=== PATIENT | male | born 1935 | race Caucasian/White ===

== ENCOUNTER 2017-11-02 12:39 | Inpatient (IN) ==
[2017-11-02] MEDS ORDERED: ONDANSETRON 4 MG/2 ML VIAL IV PRN (15:01)
[2017-11-02] MEDS ORDERED: ACETAMINOPHEN 325 MG TABLET PO PRN (15:01)
[2017-11-02] MEDS ORDERED: DEXTROSE 31 GM ORAL.SUSP PO PRN (15:01)
[2017-11-02] MEDS ORDERED: MAGNESIUM SULFATE 2 GM/50 ML BAG IV PRN (15:01)
[2017-11-02] MEDS ORDERED: DEXTROSE 50% 50 ML VIAL IV PRN (15:01)
[2017-11-02] MEDS ORDERED: ACETAMINOPHEN 1,000 MG/100 ML BOTTLE IV PRN (15:01)
--- NOTE | 2017-11-02 16:16 | History and Physical Report ---
DATE OF ADMISSION: 11/02/2017 PRIMARY CARE PHYSICIAN: Aneesh Sanchez M.D. REASON FOR ADMISSION: Weakness, generalized swelling, and shortness of breath. HISTORY OF CHIEF COMPLAINT: The patient is an 82-year-old gentleman who lives with his , Lorie, at [facility] and has been in his baseline state of health with history of diabetes, hypertension. Over the last few of weeks, he has noticed increasing weight gain to the amount of 60 pounds. Patient has had difficulty voiding and emptying bladder. He, however, denies taking new medications. He had upper respiratory symptoms roughly 2 weeks ago and since then he has had progressive difficulty emptying. he has been trying to alleviate his symptoms with [id number] medications. He denies abdominal pain, bloody urine, bloody stool. He does have associated shortness of breath which has progressed from dyspnea on maximal exertion to dyspnea at rest. He is unable to perform activities of daily living. With increasing concerns, the patient was evaluated at [facility] ER today. Initial workup was significant for bibasilar infiltrates with parapneumonic effusion on chest imaging, along with acute renal failure with a creatinine of 4.3 and potassium 5.4 and a pH of 7.33 on basic panel. Due to lack of availability of beds at [facility], Hospitalist Service at [facility] was consulted. I received the phone sign-out from Dr. Senior, [facility] ED physician, and subsequently accepted the patient based on the above data. The patient on arrival appears stable. He was able to answer most of the questions. He is short of breath, was able to talk in full sentences. He endorses to history as above. He is , but his was not available for further evaluation of history. The patient denies fever, headache, photophobia, lightheadedness, dizziness. REVIEW OF SYSTEMS: A ten-point review of system was performed and is negative except for the ones discussed above. PAST MEDICAL HISTORY: 1. Diabetes mellitus type 2. 2. Hypertension. 3. Coronary artery disease. CURRENT MEDICATIONS: 1. Coreg 3.125 mg twice daily. 2. Plavix 75 mg daily. 3. Glipizide 10 mg twice daily. 4. Metformin 500 mg twice daily. 5. Ranitidine 150 mg daily. 6. Simvastatin 40 mg daily. 7. Spironolactone 25 mg daily. 8. Potassium 10 mEq daily. 9. Moexipril 15 mg daily. CURRENT IMMUNIZATIONS: None available. SOCIAL HISTORY: Lives with his , Lorie, in [facility]. Quit smoking 4 years ago. No history of significant alcoholism or substance abuse. FAMILY HISTORY: Not relevant given advanced age. ALLERGIES: None remarkable. PHYSICAL EXAMINATION: GENERAL: The patient is alert, oriented, in moderate discomfort, short of breath, fatigue, lethargic. VITAL SIGNS: Blood pressure 124/76, respiratory rate 22, temperature 98.6, sats 100% on 2 liters of oxygen. HEENT: Pupils symmetric. Oral cavity is dry. No ear or nose discharge. Head is normocephalic and atraumatic. NECK: No lymphadenopathy. CHEST: S1, S2, tachycardia. ESM grade 1. Diminished breath sounds at bases, poor respiratory excursion. No crackles or adventitious sounds. ABDOMEN: Soft, nontender. EXTREMITIES: Doughy, dependent edema around the sacrum and gluteal area. Significant lymphedema around the lower extremity involving the thighs all the way to the ankle. Cold, clammy skin. No joint swelling or erythema. SKIN: No rashes or skin lesions. PSYCHIATRIC: Fatigued, lethargic, but cooperative and alert. NEURO: Nonfocal. LABS AND IMAGING: Reviewed from [facility] ER. EKG: Sinus tachycardia, rate around mid-90s. Bilateral infiltrate with a parapneumonic effusion on chest imaging. Venous pH 7.33/38/39. Blood sugar 339. BUN 101, creatinine 4.3, sodium 133, potassium 5.4, chloride 94, CO2 19, anion gap 20. LFTs unremarkable. White count 5.7, hemoglobin 11.8, platelets 202. BNP 1336. ASSESSMENT AND PLAN: An 82-year-old admitted with acute renal failure. 1. Acute renal failure with generalized lymphedema. Rule out postobstructive cause. Sagastume catheter insertion along with UA, renal ultrasound and further workup. Nephrology consultation. 2. Acute mental status change, likely secondary to uremia with BUN of 101. Continue renal function monitoring while we evaluate cause and likely modalities for reversal of acute renal failure. Avoid sedative hypnotics. 3. History of diabetes mellitus type 2. Continue sliding scale insulin. Avoid sulfonylurea due to propensity for prolonged hypoglycemia from active metabolite delayed clearance. 3. Mild hyperkalemia. Monitor and manage as per Nephrology. Avoid hyperkalemia protocol at this time. Repeat BMP. 4. Bibasilar infiltrates, possibly atelectasis. However, given chest infiltrates on imaging the patient will be empirically started on coverage for community-acquired pathogens, including Levaquin/Rocephin, and we will rapidly deescalate if procalcitonin negative and low probability of infectious etiology. 5. Prophylaxis will be on heparin. 5. Other prior medical issues. At this time, medication will be held until patient is clinically stable. PLAN FOR TODAY: 1. Admit as inpatient. 2. Antibiotic coverage. 3. Renal ultrasound. 4. Nephrology consult. 5. Sagastume catheter for bladder decompression. AA:michael Job ID: [id number] Doc ID: [id number] Darren Ames MD [facility]
[2017-11-02] MEDS ORDERED: FUROSEMIDE 40 MG/4 ML VIAL IV ONE (16:32)
--- NOTE | 2017-11-02 16:41 | Nephrology Consult Note ---
History of Present Illness - Reason for Consult Patient information: Note initiated : 11/02/17 at 4:36 pm Service Date, if different from initiated Date: [] Patient: Brandon Austin 82 y/o M admitted on 11/02/17 for Pneumonia. Chief Complaint: [] Consult date: 11/02/17 acute renal failure Requesting physician: Darren Victor - Chief Complaint SOB - History of Present Illness Mr Austin is a 82 y/o white male with PMH of HTN, DM type 2, CAD, dyslipidemia who is transferred from [facility] for hospitalisation for PNA, ZANDER Patient states that he has not been feeling well for the last 2-3 weeks. he states he started having SOB on exertion and fatigue 2-3 weeks ago, he thought the cold weather was causing issues. He stopped going for his walks. He has steadily been going downhill since then. He states his SOB kept getting worse with PND/orthopnea/SOB at rest and worsening LE edema. c/o intermittent chest pain no fever, cough no chills c/o poor appetite but no nausea, vomiting no diarrhea was using ibuprofen once a day for the last one week drinks very little water only 16 ounces or less and some coffee every day also reports hypotensive episodes over the last few days Patient reports to making very little urine for the last 2 weeks Patient presented to the ER as symptoms continued to get worse He was found to have b/l LL infiltrates, PNA and ZANDER and hence needed hospitalisation for further eval, given no beds patient was transferred here Review of Systems All systems PM: reviewed and no additional remarkable complaints except as stated (as in HPI) Past History Past medical history: HTN DM type 2 dyslipidemia CAD Past family history: NOT PERTINENT Past social history: Lives with his in [place] Sanchez is his PCP retired Quit smoking 4 yrs ago, no h/o ETOH or drug abuse Medications and Allergies Allergies Allergy/AdvReac Type Severity Reaction Status Date / Time No Known Allergies Allergy Verified 11/02/17 15:22 No Known Drug Intolerances AdvReac Verified 11/02/17 15:22 Exam - General Appearance General appearance: appears started age, frail EENT: mucous membranes moist Neck: JVD Respiratory: rales (bibasal) Cardiology: no rub, edema (3+), normal S1, normal S2 Gastrointestinal: no tenderness, no guarding Integumentary: warm and dry Neurologic: no asterixis, alert and oriented x3 Musculoskeletal: no erythema, no cyanosis Psychiatric: mood/affect appropriate Assessment and Plan (1) Acute renal failure BUN 101, s.creatinine 4.3 when checked at [facility] K was 5.4, from spironolactone and use of ACEI and renal failure he has mild anion gap acidosis from renal failure, also uses metformin oliguric, bladder scan has only 90 cc of urine ZANDER etiology unclear He drinks very little fluids, is on ACEI, spironolactone and was using NSAIDS, he has been having intermittent hypotension as well no h/o CHF but has significant fluid overload with symptoms of orthopnea and PND but pro bnp is only 1500, he does have low voltage EKG Will obtain urinary studies patient also will get urgent renal US to r/o post obstructive etiology will give him 40mg lasix given his fluid excess, this will help with kaliuresis , if K trends up will give him a dose of kayexalate monitor BP and keep MAP of more than 65 no emergent need for POCKETED SPRING ASSEMBLER, will follow closely for the same, explained to the patient, he isnot refusing POCKETED SPRING ASSEMBLER at this time please dose meds to gfr less than 10 for now avoid nephrotoxic medications Thank you for giving me an opportunity to participate in Mr Austin's medical care, appreciate it Status: Acute
[2017-11-02] MEDS ORDERED: LEVOFLOXACIN 750 MG/150 ML BAG IV ONE (17:00)
--- NOTE | 2017-11-02 18:03 | Ultrasound Report ---
CLINICAL INFORMATION: Renal failure, acute TECHNIQUE: Grayscale and color flow Doppler spectral imaging COMPARISON: None. FINDINGS: Right kidney measures 10.3 x 5.5 x 5.4 cm. There is a right parapelvic cyst or extrarenal pelvis. This measures approximately 3.4 cm maximally. There is no hydronephrosis. No renal calculi. Right renal cortex is slightly echogenic consistent with medical renal disease. Left kidney is suboptimally visualized. Kidney measures 10.6 x 5.5 x 5.1 cm. No hydronephrosis. No solid mass. There is a probable 10 mm mid to lower pole cyst. Left renal cortex is mildly echogenic consistent with medical renal disease. Urinary bladder is not visualized. There is a Sagastume catheter in place. There is a small amount of free pelvic fluid posterior to the urinary bladder. IMPRESSION: 1. No hydronephrosis. 2. Mildly echogenic renal cortex bilaterally consistent with medical renal disease. Interpreted and Authenticated by: Darius Andres 11/02/17
[2017-11-02] MEDS: INSULIN LISPRO 1 UNIT/0.01 ML UNIT SQ SCH ×2 (18:30→23:04)
[2017-11-02 19:19] LABS: Appearance,Urine HAZY; Bacteria,Urine 0 /hpf (0); Bilirubin,Urine NEG (NEG); Color,Urine YELLOW; Glucose,Urine (UA) 50 mg/dL (NEG); Leukocyte Esterase,Urine NEG /uL (NEG); Protein,Urine 30 mg/dL (NEG); Specific Gravity,Urine 1.017 (1.000-1.035); Sperm,Urine ABSENT /hpf (ABSENT); Urine Blood NEG mg/dL (<0.03); Urine Hyaline Cast 1 /lpf (0-2); Urine RBC 2 /hpf (0-1); Urine Squamous Epithelial Cell < 1 /hpf (0-4); Urine WBC 2 /hpf (0-4); Urobilinogen,Urine NEG (NEG)
[2017-11-02] MEDS ORDERED: SODIUM POLYSTYRENE SULFONATE 15 GM/60 ML SUSPENSION PO ONE (20:34)
[2017-11-02] MEDS ORDERED: SENNOSIDES/DOCUSATE SODIUM 1 TAB TABLET PO SCH (21:00)
[2017-11-02] MEDS: DOCUSATE SODIUM 100 MG CAPSULE PO SCH (23:04)
[2017-11-02] MEDS: HEPARIN 5,000 UNIT/ML VIAL SQ SCH (23:05)
[2017-11-02] MEDS ORDERED: NOREPINEPHRINE BITARTRATE 16 MG in 0.9 % SODIUM CHLORIDE 234 ML IV SCH (23:30)
[2017-11-02] MEDS ORDERED: NOREPINEPHRINE BITARTRATE 4 MG/4 ML AMPUL IV ONE (23:57)
[2017-11-03] MEDS: 0.9 % SODIUM CHLORIDE 250 ML IV SCH ×4 (00:25→18:07)
[2017-11-03 05:50] LABS: Mean Cell Volume 85.6 fL (80.0-100.0); Mean Corpuscular HGB Conc 32.5 g/dL (31.0-36.0); Mean Corpuscular Hemoglobin 27.8 pg (26.0-34.0); Platelet Count 360 K/mcL (140-440); RBC 4.85 M/mcL (4.50-5.90); Red Cell Distribution Width 14.7 % (11.5-14.5)
[2017-11-03 06:51] LABS: ALT/SGPT 36 U/l (0-40); Albumin 2.8 gm/dL (3.2-5.2); Albumin/Globulin Ratio 0.8 (1.0-2.3); Alkaline Phosphatase 148 U/L (39-117); Bilirubin,Direct 0.3 mg/dL (0.0-0.3); Blood Urea Nitrogen 111 mg/dl (8-23); Gamma Glutamyl Transpeptidase 43 U/L (8-61); Uric Acid 11.3 mg/dL (2.5-8.0)
[2017-11-03 07:00] LABS: Anisocytosis 1+ (NONE SEEN); Lymphocytes % 3 % (15-49); Monocytes % (Manual) 8 % (1-12); Platelet Estimate NORMAL (NORMAL); RBC Morphology ABNORM (NORMAL); Segmented Neutrophils % 89 % (38-78)
--- NOTE | 2017-11-03 08:58 | XRay Report ---
INDICATION: Congestive heart failure TECHNIQUE: AP chest x-ray,portable semiupright COMPARISON: None FINDINGS:Mild cardiomegaly. Bilateral parenchymal infiltrates with bibasilar predominance. Bilateral pleural effusions. Appearance is consistent with the supplied diagnosis of congestive heart failure. Bibasilar pneumonia is not excluded and clinical correlation is necessary. Small focal right upper lobe infiltrate. This may be due to pneumonia or more focal pulmonary edema. Left upper lobe is negative. IMPRESSION: 1. Bilateral infiltrates and pleural effusions 2. Findings are consistent with the supplied diagnosis of congestive heart failure. Follow-up radiographs recommended Interpreted and Authenticated by: Darius Andres 11/03/17
[2017-11-03] MEDS ORDERED: cefTRIAXone 2 GM in DEXTROSE 5% IN WATER 50 ML IV SCH (09:00)
[2017-11-03] MEDS ORDERED: FUROSEMIDE 100 MG/10 ML VIAL IV ONE (09:00)
[2017-11-03] MEDS ORDERED: 0.9 % SODIUM CHLORIDE 10 ML SYRINGE IV PRN ×2 (10:04→15:58)
--- NOTE | 2017-11-03 11:14 | Ultrasound Report ---
CLINICAL INFORMATION: Renal failure TECHNIQUE: Grayscale and color flow Doppler spectral imaging COMPARISON: None. FINDINGS: Limited evaluation. Patient was scanned in an upright sitting position. Renal arteries are suboptimally visualized. No significant velocity elevation with in the proximal, mid, or distal renal artery bilaterally. Renal artery to aortic ratios are not significantly elevated. No evidence for 50% or greater diameter stenosis. Right resistive indices measure 0.75-0.86. Left resistive indices measure 0.74-0.82. These values are abnormal. IMPRESSION: 1. Abnormal resistive index bilaterally 2. No evidence for renal artery stenosis Interpreted and Authenticated by: Darius Andres 11/03/17
[2017-11-03] MEDS: DOCUSATE SODIUM 100 MG CAPSULE PO SCH ×2 (11:30→21:39)
[2017-11-03] MEDS: HEPARIN 5,000 UNIT/ML VIAL SQ SCH ×2 (11:31→21:39)
[2017-11-03] MEDS: INSULIN LISPRO 1 UNIT/0.01 ML UNIT SQ SCH ×3 (12:42→21:40)
[2017-11-03] MEDS ORDERED: DEXTROSE 50% 50 ML VIAL IV PRN (15:58)
[2017-11-03] MEDS ORDERED: MAGNESIUM SULFATE 2 GM/50 ML BAG IV PRN (15:58)
[2017-11-03] MEDS ORDERED: ACETAMINOPHEN 1,000 MG/100 ML BOTTLE IV PRN (15:58)
[2017-11-03] MEDS ORDERED: DEXTROSE 31 GM ORAL.SUSP PO PRN (15:58)
[2017-11-03] MEDS ORDERED: ONDANSETRON 4 MG/2 ML VIAL IV PRN (15:58)
[2017-11-03] MEDS ORDERED: MANNITOL 12.5 GM/50 ML VIAL IV ONE (16:21)
[2017-11-03] MEDS ORDERED: VANCOMYCIN PER PHARMACY IV SCH (16:35)
--- NOTE | 2017-11-03 16:35 | Internal Med Progress Note ---
Medical - PN: Subj Patient information: Note initiated : 11/03/17 at 4:30 pm Service Date, if different from initiated Date: [] Patient: Brandon Austin 82 y/o M admitted on 11/02/17 for Pneumonia/Acute Renal Failure. Chief Complaint: [] Interval history: The patient is an 82-year-old gentleman who lives with his , Lorie, at [facility] and has been in his baseline state of health with history of diabetes, hypertension. Over the last few of weeks, he has noticed increasing weight gain to the amount of 60 pounds. Patient has had difficulty voiding and emptying bladder. He, however, denies taking new medications. He had upper respiratory symptoms roughly 2 weeks ago and since then he has had progressive difficulty emptying. he has been trying to alleviate his symptoms with [id number] medications. He denies abdominal pain, bloody urine, bloody stool. He does have associated shortness of breath which has progressed from dyspnea on maximal exertion to dyspnea at rest. He is unable to perform activities of daily living. With increasing concerns, the patient was evaluated at [facility] ER today. Initial workup was significant for bibasilar infiltrates with parapneumonic effusion on chest imaging, along with acute renal failure with a creatinine of 4.3 and potassium 5.4 and a pH of 7.33 on basic panel. Due to lack of availability of beds at [facility], Hospitalist Service at [facility] was consulted. I received the phone sign-out from Dr. Senior, [facility] ED physician, and subsequently accepted the patient based on the above data. The patient on arrival appears stable. He was able to answer most of the questions. He is short of breath, was able to talk in full sentences. He endorses to history as above. He is , but his was not available for further evaluation of history. 11/03 patient seen and examined, overnight events noted, patient was hypotensive overnight, and was started on levophed drip, no icu bed available, hence was on the tele status with the drip. he was moved to icu today, as soon as bed opened, He has had poor urine output, and did not respond to lasix, nephrology following , plan to get temporary cath placed and dialysis to be initiated Echo reviewed, normal lvef, moderate pulm HTN noted pt on levophed, picc to be placed for pressor support On iv antibiotics rocepin, levofloxacin,, d/c same, start on vanco and zosyn CXR shows ricardo infiltrates, and pleural effusion. Renal USG shows abnormal restive indices, but no significant renal artery stenosis Pertinent ROS: Denies headache, dizziness Denies chest pain, palpitations improving shortness of breath, Denies abdominal pain, nausea or vomiting. - Constitutional Vitals: Vital Signs Temp Pulse Resp BP Pulse Ox 98.6 F 74 24 H 116/70 90 11/03/17 11:33 11/03/17 16:13 11/03/17 11:33 11/03/17 16:10 11/03/17 16:13 Period Temp Pulse Resp BP Sys/Kelly Pulse Ox Last 24 Hr 97.2 F-98.6 F 65-76 16-24 68-155/49-144 90-100 Intake and Output 11/03/17 11/03/17 11/03/17 05:59 13:59 21:59 Intake Total 246 / 246 220 / 220 Output Total 175 / 175 60 / 60 Balance -165 / -165 186 / 186 219 / 219 Weight 181 lb 8 oz Patient Weight 11/04/17 05:59 Weight 181 lb 8 oz Intake & Output: Intake & Output 11/03/17 11/03/17 11/03/17 05:59 13:59 21:59 Intake Total 246 / 246 220 / 220 Output Total 175 / 175 60 / 60 Balance -165 / -165 186 / 186 219 / 219 Weight 181 lb 8 oz Intake: IV 246 / 246 Sodium Chloride 0.9% 250 ml @ 246 / 246 20 mls/hr IV .[id number] KANDY Rx#: [id number] Levophed 16 mg In Sodium 10 / 10 Chloride 0.9% 234 ml @ 10 MCG/ MIN 9.37 mls/hr IV Q24H KANDY Rx# :[id number] Oral 220 / 220 Output: Urine Catheter Amount 0 / 0 60 / 60 Urine/Stool Mix Stool 175 / 175 Other: Meal Lunch Percent of Meal Consumed 100% Feeding Ability Independent Stool Size Small Large Stool Color Brown Brown Stool Consistency Liquid Liquid # Bowel Movements 1 1 # of times incontinent of 1 1 Bowels Exam: Constitutional; Afebrile, cooperative, alert, not in distress. Eyes- No icterus, , No periorbital swelling Ears- Ext ear normal, hearing moderate hard to conversation. Neck- Midline trachea, supple Respiratory system: Air Entry equal on both sides, decreased air entry at both bases, ricardo crackles noted, no wheezing. speaking full sentences, no accessory muscle use. CVS- Rate rhythm regular, S1,S2 heard, no gallop, no rub. Abdomen- Soft nontender abdomen, no organomegaly, no tenderness, no guarding or rigidity, MERCHANDISE COORDINATOR- AOOx3, moving all extremities, no gross focal deficit noted. Medical - PN: Obj Da - Labs CBC & Chem 7: 11/03/17 04:28 11/03/17 04:28 Labs: Abnormal Lab Results 11/03/17 11/03/17 11/03/17 13:07 04:28 04:28 RDW 14.7 H Seg Neutrophils % 89 H Lymphocytes % 3 L RBC Morphology Abnorm A Anisocytosis 1+ A PT 15.8 H INR 1.3 H POC Potassium Carbon Dioxide 21 L Anion Gap 18.0 H POC BUN BUN 111 H* Creatinine 4.9 H POC Creatinine Glucose 238 H POC Glucose Uric Acid 11.3 H Calcium 8.4 L POC WB Ioniz Calcium Phosphorus 7.8 H* Magnesium 2.7 H Alkaline Phosphatase 148 H Albumin 2.8 L Albumin/Globulin Ratio 0.8 L Urine Protein Urine Glucose (UA) Urine RBC 11/02/17 11/02/17 17:15 15:30 RDW Seg Neutrophils % Lymphocytes % RBC Morphology Anisocytosis PT INR POC Potassium 5.5 H Carbon Dioxide Anion Gap POC BUN 100 H BUN Creatinine POC Creatinine 4.7 H Glucose POC Glucose 330 H Uric Acid Calcium POC WB Ioniz Calcium 1.09 L Phosphorus Magnesium Alkaline Phosphatase Albumin Albumin/Globulin Ratio Urine Protein 30 A Urine Glucose (UA) 50 A Urine RBC 2 H Meds: Medications Acetaminophen (Tylenol) 650 mg PO Q4-6HP PRN PRN Reason: PAIN/FEVER > 101 Ceftriaxone Sodium (Rocephin) 2 gm IV DAILY KANDY Dextrose (Dextrose 50%) 0 ml IV UD PRN PRN Reason: Hypoglycemia Diagnostic Test (Pha) (Accu-Chek) 1 each FS ACHS KANDY Docusate Sodium (Colace) 100 mg PO BID KANDY Furosemide (Lasix) 40 mg IV Q12 KANDY Glucose (Insta-Glucose) 15 gm PO PRN PRN PRN Reason: Hypoglycemia Heparin Sodium (Porcine) (Heparin) 5,000 unit SQ Q12 KANDY Heparin Sodium (Porcine) (Heparin Flush) 2 ml IV Q12 KANDY Levofloxacin (Levaquin) 500 mg in 100 mls @ 100 mls/hr IV Q48H KANDY Magnesium Sulfate (Magnesium Sulfate) 2 gm in 50 mls @ 50 mls/hr IV UD PRN PRN Reason: MG = or < 1.7 Norepinephrine Bitartrate 16 (mg/ Sodium Chloride) 250 mls @ 9.37 mls/hr IV Q24H KANDY; 10 MCG/MIN PRN Reason: Protocol Sodium Chloride (Sodium Chloride 0.9%) 250 mls @ 20 mls/hr IV .[id number] KANDY Acetaminophen (Ofirmev) 1,000 mg in 100 mls @ 200 mls/hr IV Q6HP PRN PRN Reason: PAIN/FEVER > 101 Sodium Chloride (Sodium Chloride 0.9%) 250 mls @ 20 mls/hr IV .[id number] KANDY Insulin Human Lispro (Humalog) 0 unit SQ ACHS KANDY PRN Reason: Protocol Ondansetron HCl (Zofran) 4 mg IV Q4-6HP PRN PRN Reason: Nausea And Vomiting Senna/Docusate Sodium (Senna Plus Tablet) 1 tab PO HS KANDY Sevelamer Carbonate (Renvela) 800 mg PO TIDCC KANDY Sodium Chloride (Saline Flush) 10 ml IV UD PRN PRN Reason: FLUSH Sodium Chloride (Saline Flush) 10 ml IV Q12 [facility] Medical - PN: A/P - Time Spent With Patient Total time spent is greater than 50% in coordination of care (as documented) at patient's floor/unit and/or counseling patient: - Narrative A/P Narrative: A/P Acute Kidney Injury Pulmonary Hypertension Pneumonia, Health care associated Altered Mental status Diabetes Mellitus type 2 Coronary Artery Disease Hypotensive shock hyperphosphatemia secondary to renal failure Plan Monitor in ICU at risk for HD disequliribium, neprology following manitol ordered levophed to map > 65 Lactate ordered ssi insulin for glucose control vanco and zosyn for HCAP pna monitor urine output DVT hep sq Diet Medical - PN: Qual - VTE Deep Vein Thrombosis/Pulmonary Embolism Present on Admission: No
[2017-11-03] MEDS ORDERED: VANCOMYCIN 1,250 MG in 0.9 % SODIUM CHLORIDE 500 ML IV ONE (17:00)
--- NOTE | 2017-11-03 17:28 | XRay Report ---
INDICATION: Right-sided PICC line placement TECHNIQUE: AP chest x-ray,portable semiupright COMPARISON: Chest x-rays dated 11/03/2017 FINDINGS:Right-sided PICC line. The PICC line is curled back in the axilla and is directed inferiorly. This should be repositioned. Large caliber right central venous catheter. Tip is in the right atrium. No pneumothorax. Bilateral parenchymal infiltrates and pleural effusions. Appearance remains consistent with congestive heart failure IMPRESSION: 1. Right-sided PICC line and central venous catheter in above described position 2. Bilateral parenchymal infiltrates and pleural effusions Interpreted and Authenticated by: Darius Andres 11/03/17
--- NOTE | 2017-11-03 17:53 | XRay Report ---
INDICATION: PICC line placement TECHNIQUE: AP chest x-ray,portable semiupright COMPARISON: Previous examination dated 11/03/2017 FINDINGS:Left-sided PICC line with its tip in the superior vena cava in good position. No change in large caliber right central venous catheter. Catheter tip is in the right atrium. Findings consistent with bilateral pleural effusions. There is bibasilar atelectasis or infiltrate. IMPRESSION: Left-sided PICC line with its tip in the superior vena cava Interpreted and Authenticated by: Darius Andres 11/03/17
[2017-11-03] MEDS: NOREPINEPHRINE BITARTRATE 16 MG in 0.9 % SODIUM CHLORIDE 234 ML IV SCH (18:06)
[2017-11-03] MEDS: SEVELAMER 800 MG TABLET PO SCH (18:14)
[2017-11-03 19:06] LABS: Blood Urea Nitrogen 116 mg/dl (8-23)
--- NOTE | 2017-11-03 19:50 | Nephrology Progress Note ---
Subjective Patient information: Note initiated : 11/03/17 at 7:47 pm Service Date, if different from initiated Date: [] Patient: Brandon Austin 82 y/o M admitted on 11/02/17 for Pneumonia/Acute Renal Failure. Chief Complaint: [] Principal diagnosis: Acute renal failure, fluid overload Interval history: Patient continues to have SOB, LE edema no GI symptoms he has made very little urine despite pressors support, and lasix 40-80mg His renal function continues to get worse echo shows moderate pul HTN with preserved LVEF discussed ongoing issues multiple times with family discussed option of initiating dialysis given no improvement in urinary output and fluid overload, discussed option of non doing dialysis and consequence of the same discussed risk of initiating [facility] at his age offered transfer to higher center which the family refused Pertinent ROS: as above Objective - Vital Signs Vital signs: Vital Signs Temp Pulse Pulse Resp BP BP Pulse Ox 11/03/17 16:13 74 90 11/03/17 16:10 72 116/70 93 11/03/17 13:31 76 118/83 96 11/03/17 13:01 72 113/75 95 11/03/17 12:31 73 119/69 95 11/03/17 12:01 72 104/63 96 11/03/17 12:00 74 11/03/17 11:40 102/74 11/03/17 11:38 71 155/144 95 11/03/17 11:33 98.6 F 24 H 102/74 96 11/03/17 10:31 71 110/78 96 11/03/17 10:01 71 104/75 91 11/03/17 09:31 69 118/72 98 11/03/17 09:01 70 121/80 99 11/03/17 08:31 67 107/76 97 11/03/17 08:01 67 107/77 96 11/03/17 07:31 68 115/68 97 11/03/17 07:01 66 109/73 99 11/03/17 06:31 69 97/72 100 11/03/17 06:25 97.7 F 16 111/63 99 11/03/17 06:01 68 111/63 97 11/03/17 06:00 68 11/03/17 05:31 68 95/65 97 11/03/17 05:01 66 107/62 98 11/03/17 04:31 67 91/64 97 03/15/18 04:01 98.2 F 66 20 102/69 97 11/03/17 03:31 67 95/66 98 11/03/17 03:01 67 97/66 97 11/03/17 03:00 68 95 11/03/17 02:41 66 88/60 98 11/03/17 02:31 66 83/65 98 11/03/17 02:23 68 82/59 97 11/03/17 02:11 67 85/57 97 11/03/17 02:03 75 68/54 98 11/03/17 02:01 67 75/61 99 11/03/17 01:51 67 84/56 98 11/03/17 01:42 72 104/72 97 11/03/17 01:31 70 89/68 98 11/03/17 01:24 66 81/57 94 11/03/17 01:21 67 68/49 95 11/03/17 01:13 70 87/55 95 11/03/17 00:41 71 98/54 94 11/03/17 00:34 72 104/70 93 11/03/17 00:01 71 97/75 93 11/02/17 23:32 97.4 F 66 18 95 11/02/17 23:03 65 82/51 94 11/02/17 23:01 65 78/55 93 11/02/17 22:01 69 112/69 95 11/02/17 21:01 68 107/63 96 11/02/17 20:10 66 93 11/02/17 20:01 97.2 F 67 20 91/61 95 Intake and Output 11/03/17 11/03/17 11/03/17 05:59 13:59 21:59 Intake Total 246 / 246 220 / 220 Output Total 175 / 175 60 / 60 Balance -165 / -165 186 / 186 219 / 219 Intake: IV 246 / 246 Sodium Chloride 0.9% 250 ml @ 246 / 246 20 mls/hr IV .[id number] [facility] Rx#: [id number] Levophed 16 mg In Sodium 10 / 10 Chloride 0.9% 234 ml @ 10 MCG/ MIN 9.37 mls/hr IV Q24H [facility] Rx# :[id number] Oral 220 / 220 Output: Urine Catheter Amount 0 / 0 60 / 60 Urine/Stool Mix Stool 175 / 175 Other: Meal Lunch Percent of Meal Consumed 100% Feeding Ability Independent Stool Size Small Large Stool Color Brown Brown Stool Consistency Liquid Liquid # Bowel Movements 1 1 # of times incontinent of 1 1 Bowels Weight 181 lb 8 oz Patient Weight 11/04/17 05:59 Weight 181 lb 8 oz Intake & Output: Intake & Output 11/03/17 11/03/17 11/03/17 05:59 13:59 21:59 Intake Total 246 / 246 220 / 220 Output Total 175 / 175 60 / 60 Balance -165 / -165 186 / 186 219 / 219 Weight 181 lb 8 oz Intake: IV 246 / 246 Sodium Chloride 0.9% 250 ml @ 246 / 246 20 mls/hr IV .[id number] [facility] Rx#: [id number] Levophed 16 mg In Sodium 10 / 10 Chloride 0.9% 234 ml @ 10 MCG/ MIN 9.37 mls/hr IV Q24H [facility] Rx# :[id number] Oral 220 / 220 Output: Urine Catheter Amount 0 / 0 60 / 60 Urine/Stool Mix Stool 175 / 175 Other: Meal Lunch Percent of Meal Consumed 100% Feeding Ability Independent Stool Size Small Large Stool Color Brown Brown Stool Consistency Liquid Liquid # Bowel Movements 1 1 # of times incontinent of 1 1 Bowels - General Appearance General appearance: appears started age EENT: mucous membranes moist Neck: JVD Respiratory: rales (decreased air entry at the bases ) Cardiology: edema, normal S1, normal S2 Gastrointestinal: no tenderness, no guarding Integumentary: warm and dry Neurologic: asterixis, alert and oriented x3 Musculoskeletal: no erythema, no cyanosis Psychiatric: mood/affect appropriate - Lab 11/03/17 04:28 11/03/17 18:05 Most recent lab results Calcium 8.6 mg/dl (8.6-10.4) 11/03/17 18:05 Phosphorus 7.8 mg/dL (2.7-4.5) H* 11/03/17 04:28 Magnesium 2.7 mg/dL (1.6-2.5) H 11/03/17 04:28 Assessment and Plan (1) Acute renal failure Patient has ZANDER likely ATN/? cardiorenal syndrome,low urine sodium in the setting of significant volume excess mild proteinuria will obtain further work up renal US shows medical renal disease, renal doppler is negative baseline s.creat 1.3 (07/08) hypotension on levophed stable given mild uremic symptoms, fluid excess and oligoanuria despite using diuretic will initiate dialysis today will do dialysis only for 2 hrs and UF treatment for 3 hrs, using revaclear 300 dialyser, 2K/2.5Ca dialysate, QB 200ml/min, QD 300/400ML/MIN and attempt for 0.5 -1L UF removal as tolerated continue pressors to keep map of more than 70 will continue IV lasix will start renvela for phos binding hold ACEI, spironolactone, metformin monitor I/O, renal function and vitals dose meds to egfr less than 10 I will be off call from tomorrow and Dr Oquendo will follow the patient. I have let the family know about this and I have signed off to Dr Oqunedo Thank you for giving me an opportunity to participate in Mr Austin's medical care, appreciate it Status: Acute
[2017-11-03] MEDS ORDERED: 0.9 % SODIUM CHLORIDE 10 ML SYRINGE IV SCH (21:00)
[2017-11-03] MEDS: 0.9 % SODIUM CHLORIDE 10 ML SYRINGE IV SCH (21:41)
[2017-11-03] MEDS: FUROSEMIDE 40 MG/4 ML VIAL IV SCH (21:41)
[2017-11-03] MEDS: SENNOSIDES/DOCUSATE SODIUM 1 TAB TABLET PO SCH (21:41)
[2017-11-03] MEDS: PIPERACILLIN SODIUM/TAZOBACTAM 2.25 GM in DEXTROSE 5% IN WATER 50 ML IV SCH (23:09)
[2017-11-04] MEDS: PIPERACILLIN SODIUM/TAZOBACTAM 2.25 GM in DEXTROSE 5% IN WATER 50 ML IV SCH ×4 (00:46→22:03)
[2017-11-04] MEDS: 0.9 % SODIUM CHLORIDE 250 ML IV SCH ×4 (04:05→18:31)
[2017-11-04 05:42] LABS: Mean Cell Volume 85.3 fL (80.0-100.0); Mean Corpuscular HGB Conc 32.4 g/dL (31.0-36.0); Mean Corpuscular Hemoglobin 27.6 pg (26.0-34.0); Platelet Count 321 K/mcL (140-440); RBC 4.81 M/mcL (4.50-5.90)
[2017-11-04 06:13] LABS: ALT/SGPT 29 U/l (0-40); Albumin 2.6 gm/dL (3.2-5.2); Albumin/Globulin Ratio 0.7 (1.0-2.3); Alkaline Phosphatase 147 U/L (39-117); Bilirubin,Direct 0.2 mg/dL (0.0-0.3); Blood Urea Nitrogen 94 mg/dl (8-23); Gamma Glutamyl Transpeptidase 39 U/L (8-61); Uric Acid 9.4 mg/dL (2.5-8.0)
--- NOTE | 2017-11-04 06:29 | XRay Report ---
INDICATION: Dyspnea TECHNIQUE: AP chest x-ray,portable semiupright COMPARISON: 11/03/2017 FINDINGS:No change in positions of large caliber right central venous catheter and left-sided PICC line. Mild cardiomegaly. Findings consistent with bilateral pleural effusions and bilateral parenchymal infiltrates. Appearance is essentially stable. Continued radiographic follow-up recommended IMPRESSION: 1. Bilateral parenchymal infiltrates and pleural fluid collections 2. No significant interval change since 11/03/2017 Interpreted and Authenticated by: Darius Andres 11/04/17
[2017-11-04 06:53] LABS: Anisocytosis 1+ (NONE SEEN); Eosinophils % (Manual) 1 % (0-7); Lymphocytes % 13 % (15-49); Monocytes % (Manual) 8 % (1-12); Platelet Estimate NORMAL (NORMAL); RBC Morphology ABNORM (NORMAL); Segmented Neutrophils % 78 % (38-78)
--- NOTE | 2017-11-04 07:56 | Nephrology Progress Note ---
Subjective Patient information: Note initiated : 11/04/17 at 7:54 am Patient: Brandon Austin 82 y/o M admitted on 11/02/17 for Pneumonia/Acute Renal Failure. Chief Complaint: Shortness of breath with swelling. Principal diagnosis: Acute renal failure, fluid overload Interval history: Brandon Austin is an [id number] male with coronary artery disease, diabetes mellitus type 2, hypertension, hyperlipidemia admitted on 11/02/17 for recent onset anorexia, dyspnea and weakness for one month. Pertinent ROS: Feels better. Decreased leg edema. Less dyspnea. Objective - Vital Signs Vital signs: Vital Signs Temp Pulse Pulse Pulse Resp BP BP 11/04/17 07:01 76 122/98 11/04/17 06:31 70 115/81 11/04/17 06:01 69 18 97/74 11/04/17 05:01 94 H 18 130/85 11/04/17 04:01 97.6 F 71 18 116/74 11/04/17 03:01 69 117/86 11/04/17 02:13 68 11/04/17 02:01 98.0 F 72 18 117/66 11/04/17 02:00 80 80 18 11/04/17 01:01 71 16 97/68 11/04/17 00:01 72 92/74 11/03/17 23:01 71 18 109/80 11/03/17 22:32 72 112/76 11/03/17 22:16 97.1 F 77 102/66 11/03/17 22:01 75 18 118/86 11/03/17 21:59 82 124/87 11/03/17 21:46 97.1 F 97 H 100/83 11/03/17 21:26 97.3 F 89 109/77 11/03/17 21:03 97.1 F 75 22 131/73 11/03/17 21:01 74 122/74 11/03/17 20:54 97.1 F 77 121/73 11/03/17 20:18 97.2 F 74 117/70 11/03/17 20:03 97.4 F 76 116/74 11/03/17 20:01 97.3 F 75 18 147/131 11/03/17 19:02 97.4 F 78 20 137/78 11/03/17 18:03 74 18 117/83 11/03/17 18:00 76 81 20 11/03/17 16:13 74 11/03/17 16:10 72 116/70 11/03/17 13:31 76 118/83 11/03/17 13:01 72 113/75 11/03/17 12:31 73 119/69 11/03/17 12:01 72 104/63 11/03/17 12:00 74 11/03/17 11:40 102/74 11/03/17 11:38 71 155/144 11/03/17 11:33 98.6 F 24 H 102/74 11/03/17 10:31 71 110/78 11/03/17 10:01 71 104/75 11/03/17 09:31 69 118/72 11/03/17 09:01 70 121/80 11/03/17 08:31 67 107/76 11/03/17 08:01 67 107/77 Pulse Ox 11/04/17 07:01 92 11/04/17 06:31 96 11/04/17 06:01 95 11/04/17 05:01 95 11/04/17 04:01 95 11/04/17 03:01 95 11/04/17 02:13 96 11/04/17 02:01 96 11/04/17 02:00 98 11/04/17 01:01 96 11/04/17 00:01 94 11/03/17 23:01 96 11/03/17 22:32 11/03/17 22:16 11/03/17 22:01 94 11/03/17 21:59 11/03/17 21:46 11/03/17 21:26 11/03/17 21:03 95 11/03/17 21:01 95 11/03/17 20:54 11/03/17 20:18 11/03/17 20:03 11/03/17 20:01 95 11/03/17 19:02 95 11/03/17 18:03 94 11/03/17 18:00 96 11/03/17 16:13 90 11/03/17 16:10 93 11/03/17 13:31 96 11/03/17 13:01 95 11/03/17 12:31 95 11/03/17 12:01 96 11/03/17 12:00 11/03/17 11:40 11/03/17 11:38 95 11/03/17 11:33 96 11/03/17 10:31 96 11/03/17 10:01 91 11/03/17 09:31 98 11/03/17 09:01 99 11/03/17 08:31 97 11/03/17 08:01 96 Intake and Output 11/03/17 11/04/17 11/04/17 21:59 05:59 13:59 Intake Total 224 / 224 290 / 290 1340 / 1340 Output Total 1320 / 1320 45 / 45 Balance 223 / 223 -1030 / -1030 1295 / 1295 Intake: IV 4 / 4 50 / 50 1340 / 1340 Sodium Chloride 0.9% 250 ml @ 250 / 250 20 mls/hr IV .[id number] [facility] Rx#: [id number] Levophed 16 mg In Sodium 4 / 4 Chloride 0.9% 234 ml @ 10 MCG/ MIN 9.37 mls/hr IV Q24H [facility] Rx# :[id number] Zosyn 2.25 gm In Dextrose 5% in 50 / 50 50 / 50 Water 50 ml @ 100 mls/hr IV Q8H [facility] Rx#:[id number] Oral 220 / 220 240 / 240 Output: Urine Catheter Amount 320 / 320 45 / 45 Urine/Stool Mix Hemodialysis UF 1000 / 1000 Other: Meal Lunch Percent of Meal Consumed 100% Feeding Ability Independent Stool Size Large Stool Color Brown Stool Consistency Liquid Weight 180 lb 6.4 oz Intake & Output: Intake & Output 11/03/17 11/04/17 11/04/17 21:59 05:59 13:59 Intake Total 224 / 224 290 / 290 1340 / 1340 Output Total 1320 / 1320 45 / 45 Balance 223 / 223 -1030 / -1030 1295 / 1295 Weight 180 lb 6.4 oz Intake: IV 4 / 4 50 / 50 1340 / 1340 Sodium Chloride 0.9% 250 ml @ 250 / 250 20 mls/hr IV .[id number] [facility] Rx#: [id number] Levophed 16 mg In Sodium 4 / 4 Chloride 0.9% 234 ml @ 10 MCG/ MIN 9.37 mls/hr IV Q24H [facility] Rx# :[id number] Zosyn 2.25 gm In Dextrose 5% in 50 / 50 50 / 50 Water 50 ml @ 100 mls/hr IV Q8H [facility] Rx#:[id number] Oral 220 / 220 240 / 240 Output: Urine Catheter Amount 320 / 320 45 / 45 Urine/Stool Mix Hemodialysis UF 1000 / 1000 Other: Meal Lunch Percent of Meal Consumed 100% Feeding Ability Independent Stool Size Large Stool Color Brown Stool Consistency Liquid - General Appearance General appearance: appears started age EENT: mucous membranes moist Neck: supple Respiratory: rales Cardiology: edema, regular rate, regular rhythm Gastrointestinal: no tenderness Integumentary: no rash Neurologic: alert and oriented x3 Musculoskeletal: no erythema, no cyanosis Psychiatric: mood/affect appropriate, cooperative - Lab 11/04/17 03:58 11/04/17 03:58 Most recent lab results Calcium 8.2 mg/dl (8.6-10.4) L 11/04/17 03:58 Phosphorus 7.1 mg/dL (2.7-4.5) H* 11/04/17 03:58 Magnesium 2.4 mg/dL (1.6-2.5) 11/04/17 03:58 - Imaging Kidney/bladder ultrasound: report reviewed Assessment and Plan (1) Acute kidney failure with tubular necrosis Work up: CXR on 11/04/17: Bilateral parenchymal infiltrates and pleural fluid collections. No significant interval change since 11/03/2017 Echo on 11/03/17: LVEF 50-70%, moderate pulmonary hypertension and left pleural effusion. US Renal on 11/03/17: Abnormal resistive index bilaterally. No evidence for renal artery stenosis. US Renal on 11/02/17: No hydronephrosis. Mildly echogenic renal cortex bilaterally consistent with medical renal disease. Urinalysis on 11/02/17: Yellow, hazy, pH 5.0, SG 1.017, protein 30, occult blood negative. Random urine protein / creatinine ratio 11/02/17: Pending. Progress: Hemodialysis on 11/03/17. Levophed for hypotension. Creatinine decreased from 5.3 to 4.7 in the past 24 hours. Urine output 380 ml reported in the past 24 hours. High anion gap metabolic acidosis, resolved. Hyperphosphatemia, improved. Discussion: Etiology likely recent prescription medication change, Advil use and acute illness. Plan: Second hemodialysis today for 3 hours with 2 kg UF goal. Anticipate no dialysis need over the weekend. Wean off Levophed after dialysis. Monitor renal panel and urine output. Avoid IV contrast and nephrotoxic medications. Status: Acute Priority: High
[2017-11-04] MEDS: HEPARIN 5,000 UNIT/ML VIAL SQ SCH ×2 (08:00→21:45)
[2017-11-04] MEDS: SEVELAMER 800 MG TABLET PO SCH ×3 (08:32→18:32)
[2017-11-04] MEDS: INSULIN LISPRO 1 UNIT/0.01 ML UNIT SQ SCH ×4 (08:32→21:45)
[2017-11-04] MEDS ORDERED: cefTRIAXone 2 GM VIAL IV SCH (09:00)
[2017-11-04] MEDS ORDERED: cefTRIAXone 2 GM in DEXTROSE 5% IN WATER 50 ML IV SCH (09:00)
[2017-11-04] MEDS ORDERED: LEVOFLOXACIN 500 MG/100 ML BAG IV SCH ×2 (10:00)
[2017-11-04] MEDS: DOCUSATE SODIUM 100 MG CAPSULE PO SCH ×2 (11:27→21:12)
[2017-11-04 13:49] LABS: Vancomycin,Random 8.9 ug/mL
[2017-11-04] MEDS: FUROSEMIDE 40 MG/4 ML VIAL IV SCH ×2 (13:56→21:44)
[2017-11-04] MEDS: 0.9 % SODIUM CHLORIDE 10 ML SYRINGE IV SCH ×2 (13:56→21:48)
[2017-11-04] MEDS ORDERED: VANCOMYCIN 1,500 MG in 0.9 % SODIUM CHLORIDE 500 ML IV ONE (15:00)
--- NOTE | 2017-11-04 15:09 | Internal Med Progress Note ---
Medical - PN: Subj Patient information: Note initiated : 11/04/17 at 3:01 pm Service Date, if different from initiated Date: [] Patient: Brandon Austin 82 y/o M admitted on 11/02/17 for Pneumonia/Acute Renal Failure. Chief Complaint: [] Interval history: The patient is an 82-year-old gentleman who lives with his , Lorie, at [facility] and has been in his baseline state of health with history of diabetes, hypertension. Over the last few of weeks, he has noticed increasing weight gain to the amount of 60 pounds. Patient has had difficulty voiding and emptying bladder. He, however, denies taking new medications. He had upper respiratory symptoms roughly 2 weeks ago and since then he has had progressive difficulty emptying. he has been trying to alleviate his symptoms with [id number] medications. He denies abdominal pain, bloody urine, bloody stool. He does have associated shortness of breath which has progressed from dyspnea on maximal exertion to dyspnea at rest. He is unable to perform activities of daily living. With increasing concerns, the patient was evaluated at [facility] ER today. Initial workup was significant for bibasilar infiltrates with parapneumonic effusion on chest imaging, along with acute renal failure with a creatinine of 4.3 and potassium 5.4 and a pH of 7.33 on basic panel. Due to lack of availability of beds at [facility], Hospitalist Service at [facility] was consulted. I received the phone sign-out from Dr. Senior, [facility] ED physician, and subsequently accepted the patient based on the above data. The patient on arrival appears stable. He was able to answer most of the questions. He is short of breath, was able to talk in full sentences. He endorses to history as above. He is , but his was not available for further evaluation of history. 11/03 patient seen and examined, overnight events noted, patient was hypotensive overnight, and was started on levophed drip, no icu bed available, hence was on the tele status with the drip. he was moved to icu today, as soon as bed opened, He has had poor urine output, and did not respond to lasix, nephrology following , plan to get temporary cath placed and dialysis to be initiated Echo reviewed, normal lvef, moderate pulm HTN noted pt on levophed, picc to be placed for pressor support On iv antibiotics rocepin, levofloxacin,, d/c same, start on vanco and zosyn CXR shows ricardo infiltrates, and pleural effusion. Renal USG shows abnormal restive indices, but no significant renal artery stenosis 11/04 Patient seen and examined, no acute overnight events, sitting comfortably in the bed. Blood pressure stable still on Levophed drip. The patient responded well to dialysis last night, this morning the patient has some urine output and response to Lasix. He will undergo dialysis again today. Nephrology is following. Like to wean off Levophed as tolerated, chest x-ray shows bilateral infiltrates and bilateral effusions patient is on broad- spectrum antibiotics. Pertinent ROS: Denies headache, dizziness Denies chest pain, palpitations Denies cough or shortness of breath Denies abdominal pain, nausea or vomiting. - Constitutional Vitals: Vital Signs Temp Pulse Resp BP Pulse Ox 97.7 F 79 16 135/78 98 11/04/17 13:20 11/04/17 13:20 11/04/17 12:59 11/04/17 13:20 11/04/17 12:59 Period Temp Pulse Resp BP Sys/Kelly Pulse Ox Last 24 Hr 97.1 F-98.0 F 65-99 16-22 38-147/28-131 90-100 Intake and Output 11/04/17 11/04/17 11/04/17 05:59 13:59 21:59 Intake Total 290 / 290 1340 / 1340 Output Total 1320 / 1320 2530 / 2530 Balance -1030 / -1030 -1190 / -1190 Intake & Output: Intake & Output 11/04/17 11/04/17 11/04/17 05:59 13:59 21:59 Intake Total 290 / 290 1340 / 1340 Output Total 1320 / 1320 2530 / 2530 Balance -1030 / -1030 -1190 / -1190 Intake: IV 50 / 50 1340 / 1340 Sodium Chloride 0.9% 250 ml @ 250 / 250 20 mls/hr IV .[id number] [facility] Rx#: [id number] Zosyn 2.25 gm In Dextrose 5% in 50 / 50 50 / 50 Water 50 ml @ 100 mls/hr IV Q8H [facility] Rx#:[id number] Oral 240 / 240 Output: Urine Catheter Amount 320 / 320 130 / 130 Hemodialysis UF 1000 / 1000 2400 / 2400 Exam: Constitutional; Afebrile, cooperative, alert, not in distress. Eyes- No icterus, , No periorbital swelling Ears- Ext ear normal, hearing normal to conversation. Neck- Midline trachea, supple Respiratory system: Air Entry decreased both sides, bases, air entry better today, ricardo basilar crackles present. CVS- Rate rhythm regular, S1,S2 heard, no gallop, no rub. Abdomen- Soft nontender abdomen, no organomegaly, no tenderness, no guarding or rigidity, HAND WINDER- AOOx3, moving all extremities, no gross focal deficit noted. Medical - PN: Obj Da - Labs CBC & Chem 7: 11/04/17 03:58 11/04/17 03:58 Labs: Abnormal Lab Results 11/04/17 11/04/17 11/03/17 03:58 03:58 18:05 Hgb 13.3 L RDW 15.0 H Seg Neutrophils % Lymphocytes % 13 L RBC Morphology Abnorm A Anisocytosis 1+ A PT INR POC Potassium Carbon Dioxide 20 L Anion Gap 21.0 H POC BUN BUN 94 H 116 H* Creatinine 4.7 H 5.3 H* POC Creatinine Glucose 227 H 292 H POC Glucose Uric Acid 9.4 H Calcium 8.2 L POC WB Ioniz Calcium Phosphorus 7.1 H* Magnesium Alkaline Phosphatase 147 H Albumin 2.6 L Globulin 3.9 H Albumin/Globulin Ratio 0.7 L Urine Protein Urine Glucose (UA) Urine RBC 11/03/17 11/03/17 11/03/17 13:07 04:28 04:28 Hgb RDW 14.7 H Seg Neutrophils % 89 H Lymphocytes % 3 L RBC Morphology Abnorm A Anisocytosis 1+ A PT 15.8 H INR 1.3 H POC Potassium Carbon Dioxide 21 L Anion Gap 18.0 H POC BUN BUN 111 H* Creatinine 4.9 H POC Creatinine Glucose 238 H POC Glucose Uric Acid 11.3 H Calcium 8.4 L POC WB Ioniz Calcium Phosphorus 7.8 H* Magnesium 2.7 H Alkaline Phosphatase 148 H Albumin 2.8 L Globulin Albumin/Globulin Ratio 0.8 L Urine Protein Urine Glucose (UA) Urine RBC 11/02/17 11/02/17 17:15 15:30 Hgb RDW Seg Neutrophils % Lymphocytes % RBC Morphology Anisocytosis PT INR POC Potassium 5.5 H Carbon Dioxide Anion Gap POC BUN 100 H BUN Creatinine POC Creatinine 4.7 H Glucose POC Glucose 330 H Uric Acid Calcium POC WB Ioniz Calcium 1.09 L Phosphorus Magnesium Alkaline Phosphatase Albumin Globulin Albumin/Globulin Ratio Urine Protein 30 A Urine Glucose (UA) 50 A Urine RBC 2 H Meds: Medications Acetaminophen (Tylenol) 650 mg PO Q4-6HP PRN PRN Reason: PAIN/FEVER > 101 Dextrose (Dextrose 50%) 0 ml IV UD PRN PRN Reason: Hypoglycemia Diagnostic Test (Pha) (Accu-Chek) 1 each FS ACHS [facility] Last Admin: 11/04/17 13:56 Dose: 1 each Docusate Sodium (Colace) 100 mg PO BID [facility] Last Admin: 11/04/17 11:27 Dose: Not Given Furosemide (Lasix) 40 mg IV Q12 [facility] Last Admin: 11/04/17 13:56 Dose: 40 mg Glucose (Insta-Glucose) 15 gm PO PRN PRN PRN Reason: Hypoglycemia Heparin Sodium (Porcine) (Heparin) 5,000 unit SQ Q12 [facility] Last Admin: 11/03/17 21:39 Dose: 5,000 unit Heparin Sodium (Porcine) (Heparin Flush) 2 ml IV Q12 [facility] Last Admin: 11/04/17 13:55 Dose: 2 ml Magnesium Sulfate (Magnesium Sulfate) 2 gm in 50 mls @ 50 mls/hr IV UD PRN PRN Reason: MG = or < 1.7 Norepinephrine Bitartrate 16 (mg/ Sodium Chloride) 250 mls @ 9.37 mls/hr IV Q24H [facility]; 10 MCG/MIN PRN Reason: Protocol Last Titration: 11/03/17 18:30 Dose: 8 mcg/min, 7.5 mls/hr Acetaminophen (Ofirmev) 1,000 mg in 100 mls @ 200 mls/hr IV Q6HP PRN PRN Reason: PAIN/FEVER > 101 Sodium Chloride (Sodium Chloride 0.9%) 250 mls @ 20 mls/hr IV .[id number] [facility] Last Admin: 11/04/17 06:55 Dose: 20 mls/hr Piperacillin Sod/Tazobactam (Sod 2.25 gm/ Dextrose) 50 mls @ 100 mls/hr IV Q8H [facility] Last Admin: 11/04/17 13:57 Dose: 100 mls/hr Vancomycin HCl 1,500 mg/ (Sodium Chloride) 500 mls @ 333.3 mls/hr IV ONCE ONE Stop: 11/04/17 16:30 Insulin Human Lispro (Humalog) 0 unit SQ ACHS [facility] PRN Reason: Protocol Last Admin: 11/04/17 13:57 Dose: Not Given Ondansetron HCl (Zofran) 4 mg IV Q4-6HP PRN PRN Reason: Nausea And Vomiting Senna/Docusate Sodium (Senna Plus Tablet) 1 tab PO HS [facility] Last Admin: 11/03/17 21:41 Dose: 1 tab Sevelamer Carbonate (Renvela) 800 mg PO TIDCC [facility] Last Admin: 11/04/17 13:31 Dose: 800 mg Sodium Chloride (Saline Flush) 10 ml IV UD PRN PRN Reason: FLUSH Sodium Chloride (Saline Flush) 10 ml IV Q12 [facility] Last Admin: 11/04/17 13:56 Dose: 10 ml Vancomycin HCl (Vancomycin Per Pharmacy) 1 order IV UD [facility] Medical - PN: A/P - Time Spent With Patient Total time spent is greater than 50% in coordination of care (as documented) at patient's floor/unit and/or counseling patient: - Narrative A/P Narrative: A/P Acute Kidney Injury Pulmonary Hypertension Pneumonia, Health care associated Altered Mental status Diabetes Mellitus type 2 Coronary Artery Disease Hypotensive shock hyperphosphatemia secondary to renal failure Plan continue to monitor in ICU nephrolgoy following, kidney function imprving as there is some urine output ? levophed to map > 65, wean off pressors as tolerated Lactate normal ssi insulin for glucose control, add lantus qhs 10 units as glucose is still high continue vanco and zosyn for HCAP pna monitor urine output daily chest x ray DVT hep sq Diet Medical - PN: Qual - VTE Deep Vein Thrombosis/Pulmonary Embolism Present on Admission: No
[2017-11-04] MEDS ORDERED: INSULIN GLARGINE, HUMAN 1 UNIT/0.01 ML SQ SCH (21:00)
[2017-11-04] MEDS: SENNOSIDES/DOCUSATE SODIUM 1 TAB TABLET PO SCH (21:13)
[2017-11-04] MEDS: NOREPINEPHRINE BITARTRATE 16 MG in 0.9 % SODIUM CHLORIDE 234 ML IV SCH (22:13)
[2017-11-05 05:01] LABS: Mean Cell Volume 85.4 fL (80.0-100.0); Mean Corpuscular HGB Conc 32.2 g/dL (31.0-36.0); Mean Corpuscular Hemoglobin 27.5 pg (26.0-34.0); Platelet Count 274 K/mcL (140-440); RBC 4.78 M/mcL (4.50-5.90); Red Cell Distribution Width 14.9 % (11.5-14.5)
[2017-11-05 05:12] LABS: Vancomycin,Random 23.3 ug/mL
[2017-11-05] MEDS: 0.9 % SODIUM CHLORIDE 250 ML IV SCH ×2 (05:18→21:36)
[2017-11-05] MEDS: PIPERACILLIN SODIUM/TAZOBACTAM 2.25 GM in DEXTROSE 5% IN WATER 50 ML IV SCH ×3 (05:58→21:38)
[2017-11-05 06:18] LABS: ALT/SGPT 28 U/l (0-40); Albumin 2.7 gm/dL (3.2-5.2); Albumin/Globulin Ratio 0.7 (1.0-2.3); Alkaline Phosphatase 145 U/L (39-117); Bilirubin,Direct 0.3 mg/dL (0.0-0.3); Blood Urea Nitrogen 66 mg/dl (8-23); Gamma Glutamyl Transpeptidase 40 U/L (8-61); Uric Acid 7.2 mg/dL (2.5-8.0)
[2017-11-05 07:27] LABS: Lymphocytes % 7 % (15-49); Monocytes % (Manual) 11 % (1-12); Platelet Estimate NORMAL (NORMAL); RBC Morphology NORMAL (NORMAL); Segmented Neutrophils % 82 % (38-78)
--- NOTE | 2017-11-05 07:46 | Nephrology Progress Note ---
Subjective Patient information: Note initiated : 11/05/17 at 7:44 am Patient: Brandon Austin 82 y/o M admitted on 11/02/17 for Pneumonia/Acute Renal Failure. Chief Complaint: Weakness. Principal diagnosis: Acute renal failure, fluid overload Interval history: Brandon Austin is an [id number] male with coronary artery disease, diabetes mellitus type 2, hypertension, hyperlipidemia admitted on 11/02/17 for recent onset anorexia, dyspnea and weakness for one month. Pertinent ROS: Feels okay. No shortness of breath. Less edema. Objective - Vital Signs Vital signs: Vital Signs Temp Pulse Resp BP Pulse Ox 11/05/17 07:00 16 105/80 11/05/17 06:01 74 113/83 96 11/05/17 05:01 68 119/71 96 11/05/17 04:00 65 101/70 96 11/05/17 03:01 69 95/65 94 11/05/17 02:01 64 98/66 94 11/05/17 02:00 95 11/05/17 01:01 69 119/74 94 11/05/17 00:44 62 95 11/04/17 23:01 97.7 F 74 117/80 92 11/04/17 22:01 73 127/77 93 11/04/17 21:01 74 106/71 93 11/04/17 20:01 73 137/83 95 11/04/17 20:00 93 11/04/17 19:02 122/86 11/04/17 18:01 71 105/92 98 11/04/17 17:40 73 98/68 95 11/04/17 16:38 77 125/80 98 11/04/17 16:00 98.7 F 16 125/80 96 11/04/17 15:49 68 97 11/04/17 14:04 76 112/99 95 11/04/17 13:20 97.7 F 79 135/78 11/04/17 12:59 97.7 F 16 102/60 98 11/04/17 12:56 67 100 11/04/17 12:47 65 88/74 98 11/04/17 12:41 77 114/70 11/04/17 12:34 81 100/76 100 11/04/17 12:22 75 38/28 97 11/04/17 12:17 97.7 F 77 102/60 11/04/17 12:01 72 91/70 96 11/04/17 11:46 97 H 109/71 97 11/04/17 11:39 99 H 109/71 11/04/17 11:31 76 113/70 97 11/04/17 11:17 72 110/93 96 11/04/17 11:16 75 97 11/04/17 11:09 78 110/83 11/04/17 11:01 70 109/80 98 11/04/17 10:52 78 100/61 11/04/17 10:49 73 119/90 97 11/04/17 10:42 75 119/90 11/04/17 10:31 71 128/89 98 11/04/17 10:16 97.3 F 71 112/72 97 11/04/17 10:00 73 108/68 96 11/04/17 09:31 77 103/69 95 11/04/17 09:02 75 108/72 94 11/04/17 08:31 71 126/75 97 11/04/17 08:01 69 118/81 96 Intake and Output 11/04/17 11/05/17 11/05/17 21:59 05:59 13:59 Intake Total 711 / 711 60 / 60 Output Total 590 / 590 540 / 540 80 / 80 Balance 121 / 121 -480 / -480 -80 / -80 Intake: IV 491 / 491 60 / 60 Sodium Chloride 0.9% 250 ml @ 250 / 250 20 mls/hr IV .[id number] [facility] Rx#: [id number] Levophed 16 mg In Sodium 191 / 191 10 / 10 Chloride 0.9% 234 ml @ 10 MCG/ MIN 9.37 mls/hr IV Q24H [facility] Rx# :[id number] Zosyn 2.25 gm In Dextrose 5% in 50 / 50 50 / 50 Water 50 ml @ 100 mls/hr IV Q8H [facility] Rx#:[id number] Oral 220 / 220 Output: Urine Catheter Amount 590 / 590 460 / 460 80 / 80 Void Amount 80 / 80 Other: Weight 179 lb Intake & Output: Intake & Output 11/04/17 11/05/17 11/05/17 21:59 05:59 13:59 Intake Total 711 / 711 60 / 60 Output Total 590 / 590 540 / 540 80 / 80 Balance 121 / 121 -480 / -480 -80 / -80 Weight 179 lb Intake: IV 491 / 491 60 / 60 Sodium Chloride 0.9% 250 ml @ 250 / 250 20 mls/hr IV .[id number] [facility] Rx#: [id number] Levophed 16 mg In Sodium 191 / 191 10 / 10 Chloride 0.9% 234 ml @ 10 MCG/ MIN 9.37 mls/hr IV Q24H [facility] Rx# :[id number] Zosyn 2.25 gm In Dextrose 5% in 50 / 50 50 / 50 Water 50 ml @ 100 mls/hr IV Q8H [facility] Rx#:[id number] Oral 220 / 220 Output: Urine Catheter Amount 590 / 590 460 / 460 80 / 80 Void Amount 80 / 80 - General Appearance General appearance: appears started age EENT: mucous membranes moist Neck: supple Respiratory: rales Cardiology: edema Gastrointestinal: no tenderness Integumentary: no rash, warm and dry Neurologic: alert and oriented x3 Musculoskeletal: no erythema, no cyanosis Psychiatric: mood/affect appropriate, cooperative - Lab 11/05/17 03:52 11/05/17 03:52 Most recent lab results Calcium 8.1 mg/dl (8.6-10.4) L 11/05/17 03:52 Phosphorus 6.0 mg/dL (2.7-4.5) H* 11/05/17 03:52 Magnesium 2.3 mg/dL (1.6-2.5) 11/05/17 03:52 Assessment and Plan (1) Acute kidney failure with tubular necrosis Work up: CXR on 11/04/17: Bilateral parenchymal infiltrates and pleural fluid collections. No significant interval change since 11/03/2017 Echo on 11/03/17: LVEF 50-70%, moderate pulmonary hypertension and left pleural effusion. US Renal on 11/03/17: Abnormal resistive index bilaterally. No evidence for renal artery stenosis. US Renal on 11/02/17: No hydronephrosis. Mildly echogenic renal cortex bilaterally consistent with medical renal disease. Urinalysis on 11/02/17: Yellow, hazy, pH 5.0, SG 1.017, protein 30, occult blood negative. Random urine protein / creatinine ratio 11/02/17: Pending. Progress: Hemodialysis on 11/03/17 and 11/04/17. Levophed being weaned off. Urine output 1205 ml reported in the past 24 hours. Hyperphosphatemia, improved. Discussion: Etiology likely recent prescription medication change, Advil use and acute illness. Plan: Anticipate no dialysis need over the weekend. Wean off Levophed as tolerated. Monitor renal panel and urine output. Avoid IV contrast and nephrotoxic medications. Status: Acute Priority: High
[2017-11-05] MEDS: INSULIN LISPRO 1 UNIT/0.01 ML UNIT SQ SCH ×4 (07:50→21:59)
[2017-11-05] MEDS: FUROSEMIDE 40 MG/4 ML VIAL IV SCH ×2 (08:51→21:34)
[2017-11-05] MEDS: SEVELAMER 800 MG TABLET PO SCH ×3 (08:51→17:28)
[2017-11-05] MEDS: HEPARIN 5,000 UNIT/ML VIAL SQ SCH ×2 (08:51→21:32)
[2017-11-05] MEDS: 0.9 % SODIUM CHLORIDE 10 ML SYRINGE IV SCH ×2 (08:52→21:35)
[2017-11-05] MEDS: ACETAMINOPHEN 325 MG TABLET PO PRN (09:18)
[2017-11-05] MEDS: DOCUSATE SODIUM 100 MG CAPSULE PO SCH ×2 (09:19→21:09)
--- NOTE | 2017-11-05 09:43 | XRay Report ---
INDICATION: Congestive heart failure TECHNIQUE: AP chest x-ray,portable semiupright COMPARISON: Previous examinations dated 11/04/2017, 11/03/2017. FINDINGS:No change in position of large caliber right central venous catheter with its tip in the right atrium. There is a left-sided PICC line with its tip in the proximal right atrium. Bilateral pulmonary parenchymal infiltrates and bilateral pleural effusions. Right pleural effusion appears slightly larger than on previous examinations. No other interval change. IMPRESSION: 1. Bibasilar infiltrates and bilateral pleural effusions 2. Slightly increased right pleural effusion since previous examinations Interpreted and Authenticated by: Darius Andres 11/05/17
--- NOTE | 2017-11-05 11:27 | Internal Med Progress Note ---
Medical - PN: Subj Patient information: Note initiated : 11/05/17 at 11:25 am Service Date, if different from initiated Date: [] Patient: Brandon Austin 82 y/o M admitted on 11/02/17 for Pneumonia/Acute Renal Failure. Chief Complaint: [] Interval history: The patient is an 82-year-old gentleman who lives with his , Lorie, at [facility] and has been in his baseline state of health with history of diabetes, hypertension. Over the last few of weeks, he has noticed increasing weight gain to the amount of 60 pounds. Patient has had difficulty voiding and emptying bladder. He, however, denies taking new medications. He had upper respiratory symptoms roughly 2 weeks ago and since then he has had progressive difficulty emptying. he has been trying to alleviate his symptoms with [id number] medications. He denies abdominal pain, bloody urine, bloody stool. He does have associated shortness of breath which has progressed from dyspnea on maximal exertion to dyspnea at rest. He is unable to perform activities of daily living. With increasing concerns, the patient was evaluated at [facility] ER today. Initial workup was significant for bibasilar infiltrates with parapneumonic effusion on chest imaging, along with acute renal failure with a creatinine of 4.3 and potassium 5.4 and a pH of 7.33 on basic panel. Due to lack of availability of beds at [facility], Hospitalist Service at [facility] was consulted. I received the phone sign-out from Dr. Senior, [facility] ED physician, and subsequently accepted the patient based on the above data. The patient on arrival appears stable. He was able to answer most of the questions. He is short of breath, was able to talk in full sentences. He endorses to history as above. He is , but his was not available for further evaluation of history. 11/03 patient seen and examined, overnight events noted, patient was hypotensive overnight, and was started on levophed drip, no icu bed available, hence was on the tele status with the drip. he was moved to icu today, as soon as bed opened, He has had poor urine output, and did not respond to lasix, nephrology following , plan to get temporary cath placed and dialysis to be initiated Echo reviewed, normal lvef, moderate pulm HTN noted pt on levophed, picc to be placed for pressor support On iv antibiotics rocepin, levofloxacin,, d/c same, start on vanco and zosyn CXR shows ricardo infiltrates, and pleural effusion. Renal USG shows abnormal restive indices, but no significant renal artery stenosis 11/04 Patient seen and examined, no acute overnight events, sitting comfortably in the bed. Blood pressure stable still on Levophed drip. The patient responded well to dialysis last night, this morning the patient has some urine output and response to Lasix. He will undergo dialysis again today. Nephrology is following. Like to wean off Levophed as tolerated, chest x-ray shows bilateral infiltrates and bilateral effusions patient is on broad- spectrum antibiotics. 11/05 Patient seen and examined, sitting comfortably in the chair no acute overnight events, still on pressors Levophed is running at 2 mics. The patient denies any acute complaints at this time. He has been making urine since last night and seems to be responding well to Lasix creatinine is trending down. Nephrology following. Pertinent ROS: Patient complains of generalized weakness Denies headache, dizziness Denies chest pain, palpitations Much improved shortness of breath Denies abdominal pain, nausea or vomiting. - Constitutional Vitals: Vital Signs Temp Pulse Resp BP Pulse Ox 98.0 F 66 16 91/73 99 11/05/17 07:00 11/05/17 10:16 11/05/17 07:00 11/05/17 10:16 11/05/17 10:16 Period Temp Pulse Resp BP Sys/Kelly Pulse Ox Last 24 Hr 97.7 F-98.7 F 62-99 16-16 38-137/28-104 92-100 Intake and Output 11/04/17 11/05/17 11/05/17 21:59 05:59 13:59 Intake Total 711 / 711 60 / 60 Output Total 590 / 590 540 / 540 335 / 335 Balance 121 / 121 -480 / -480 -335 / -335 Weight 179 lb Intake & Output: Intake & Output 11/04/17 11/05/17 11/05/17 21:59 05:59 13:59 Intake Total 711 / 711 60 / 60 Output Total 590 / 590 540 / 540 335 / 335 Balance 121 / 121 -480 / -480 -335 / -335 Weight 179 lb Intake: IV 491 / 491 60 / 60 Sodium Chloride 0.9% 250 ml @ 250 / 250 20 mls/hr IV .[id number] [facility] Rx#: [id number] Levophed 16 mg In Sodium 191 / 191 10 / 10 Chloride 0.9% 234 ml @ 10 MCG/ MIN 9.37 mls/hr IV Q24H [facility] Rx# :[id number] Zosyn 2.25 gm In Dextrose 5% in 50 / 50 50 / 50 Water 50 ml @ 100 mls/hr IV Q8H [facility] Rx#:[id number] Oral 220 / 220 Output: Urine Catheter Amount 590 / 590 460 / 460 335 / 335 Void Amount 80 / 80 Exam: Constitutional; Afebrile, cooperative, alert, not in distress. Eyes- No icterus, , No periorbital swelling Ears- Ext ear normal, hearing normal to conversation. Neck- Midline trachea, supple Respiratory system: Air entry is decreased in both bases, no wheezing, very mild inspiratory crackles CVS- Rate rhythm regular, S1,S2 heard, no gallop, no rub. Abdomen- Soft nontender abdomen, no organomegaly, no tenderness, no guarding or rigidity, [employer]- AOOx3, moving all extremities, no gross focal deficit noted. Medical - PN: Obj Da - Labs CBC & Chem 7: 11/05/17 03:52 11/05/17 03:52 Labs: Abnormal Lab Results 11/05/17 11/05/17 11/04/17 03:52 03:52 03:58 Hgb 13.2 L Hct 40.8 L RDW 14.9 H Seg Neutrophils % 82 H Lymphocytes % 7 L RBC Morphology Anisocytosis PT INR POC Potassium Carbon Dioxide Anion Gap POC BUN BUN 66 H 94 H Creatinine 4.1 H 4.7 H POC Creatinine Glucose 192 H 227 H POC Glucose Uric Acid 9.4 H Calcium 8.1 L 8.2 L POC WB Ioniz Calcium Phosphorus 6.0 H* 7.1 H* Magnesium Alkaline Phosphatase 145 H 147 H Albumin 2.7 L 2.6 L Globulin 3.9 H Albumin/Globulin Ratio 0.7 L 0.7 L Urine Protein Urine Glucose (UA) Urine RBC 11/04/17 11/03/17 11/03/17 03:58 18:05 13:07 Hgb 13.3 L Hct RDW 15.0 H Seg Neutrophils % Lymphocytes % 13 L RBC Morphology Abnorm A Anisocytosis 1+ A PT 15.8 H INR 1.3 H POC Potassium Carbon Dioxide 20 L Anion Gap 21.0 H POC BUN BUN 116 H* Creatinine 5.3 H* POC Creatinine Glucose 292 H POC Glucose Uric Acid Calcium POC WB Ioniz Calcium Phosphorus Magnesium Alkaline Phosphatase Albumin Globulin Albumin/Globulin Ratio Urine Protein Urine Glucose (UA) Urine RBC 11/03/17 11/03/17 11/02/17 04:28 04:28 17:15 Hgb Hct RDW 14.7 H Seg Neutrophils % 89 H Lymphocytes % 3 L RBC Morphology Abnorm A Anisocytosis 1+ A PT INR POC Potassium Carbon Dioxide 21 L Anion Gap 18.0 H POC BUN BUN 111 H* Creatinine 4.9 H POC Creatinine Glucose 238 H POC Glucose Uric Acid 11.3 H Calcium 8.4 L POC WB Ioniz Calcium Phosphorus 7.8 H* Magnesium 2.7 H Alkaline Phosphatase 148 H Albumin 2.8 L Globulin Albumin/Globulin Ratio 0.8 L Urine Protein 30 A Urine Glucose (UA) 50 A Urine RBC 2 H 11/02/17 15:30 Hgb Hct RDW Seg Neutrophils % Lymphocytes % RBC Morphology Anisocytosis PT INR POC Potassium 5.5 H Carbon Dioxide Anion Gap POC BUN 100 H BUN Creatinine POC Creatinine 4.7 H Glucose POC Glucose 330 H Uric Acid Calcium POC WB Ioniz Calcium 1.09 L Phosphorus Magnesium Alkaline Phosphatase Albumin Globulin Albumin/Globulin Ratio Urine Protein Urine Glucose (UA) Urine RBC Meds: Medications Acetaminophen (Tylenol) 650 mg PO Q4-6HP PRN PRN Reason: PAIN/FEVER > 101 Last Admin: 11/05/17 09:18 Dose: 650 mg Dextrose (Dextrose 50%) 0 ml IV UD PRN PRN Reason: Hypoglycemia Diagnostic Test (Pha) (Accu-Chek) 1 each FS ACHS [facility] Last Admin: 11/05/17 07:47 Dose: 1 each Docusate Sodium (Colace) 100 mg PO BID [facility] Last Admin: 11/05/17 09:19 Dose: Not Given Furosemide (Lasix) 40 mg IV Q12 [facility] Last Admin: 11/05/17 08:51 Dose: 40 mg Glucose (Insta-Glucose) 15 gm PO PRN PRN PRN Reason: Hypoglycemia Heparin Sodium (Porcine) (Heparin) 5,000 unit SQ Q12 [facility] Last Admin: 11/05/17 08:51 Dose: 5,000 unit Heparin Sodium (Porcine) (Heparin Flush) 2 ml IV Q12 [facility] Last Admin: 11/05/17 09:19 Dose: 2 ml Magnesium Sulfate (Magnesium Sulfate) 2 gm in 50 mls @ 50 mls/hr IV UD PRN PRN Reason: MG = or < 1.7 Norepinephrine Bitartrate 16 (mg/ Sodium Chloride) 250 mls @ 9.37 mls/hr IV Q24H [facility]; 10 MCG/MIN PRN Reason: Protocol Last Admin: 11/04/17 22:13 Dose: 5 mcg/min, 4.68 mls/hr Acetaminophen (Ofirmev) 1,000 mg in 100 mls @ 200 mls/hr IV Q6HP PRN PRN Reason: PAIN/FEVER > 101 Sodium Chloride (Sodium Chloride 0.9%) 250 mls @ 20 mls/hr IV .[id number] [facility] Last Admin: 11/05/17 05:18 Dose: 20 mls/hr Piperacillin Sod/Tazobactam (Sod 2.25 gm/ Dextrose) 50 mls @ 100 mls/hr IV Q8H [facility] Last Admin: 11/05/17 05:58 Dose: 100 mls/hr Insulin Glargine (Lantus) 10 unit SQ [facility] Last Admin: 11/04/17 21:48 Dose: 10 unit Insulin Human Lispro (Humalog) 0 unit SQ ACHS [facility] PRN Reason: Protocol Last Admin: 11/05/17 07:50 Dose: 2 unit Ondansetron HCl (Zofran) 4 mg IV Q4-6HP PRN PRN Reason: Nausea And Vomiting Senna/Docusate Sodium (Senna Plus Tablet) 1 tab PO HS [facility] Last Admin: 11/04/17 21:13 Dose: Not Given Sevelamer Carbonate (Renvela) 800 mg PO TIDCC [facility] Last Admin: 11/05/17 08:51 Dose: 800 mg Sodium Chloride (Saline Flush) 10 ml IV UD PRN PRN Reason: FLUSH Sodium Chloride (Saline Flush) 10 ml IV Q12 [facility] Last Admin: 11/05/17 08:52 Dose: 10 ml Vancomycin HCl (Vancomycin Per Pharmacy) 1 order IV [facility] [place] Medical - PN: A/P - Time Spent With Patient Total time spent is greater than 50% in coordination of care (as documented) at patient's floor/unit and/or counseling patient: - Narrative A/P Narrative: A/P Acute Kidney Injury Pulmonary Hypertension Pneumonia, Health care associated Altered Mental status Diabetes Mellitus type 2 Coronary Artery Disease Hypotensive shock hyperphosphatemia secondary to renal failure Plan continue to monitor in ICU nephrolgoy following, kidney function is improved patient has improved urine output? levophed to map > 65, wean off pressors as tolerated Lactate normal ssi insulin for glucose control, I did add Lantus qhs 10 units as glucose is still high, increase the dose of Lantus to 15 units at bedtime continue vanco and zosyn for HCAP pna monitor urine output DVT hep sq Full code Carb consistent diet renal diet Medical - PN: Qual - VTE Deep Vein Thrombosis/Pulmonary Embolism Present on Admission: No
[2017-11-05] MEDS ORDERED: DEXTROSE 50% 50 ML VIAL IV PRN (12:36)
[2017-11-05] MEDS ORDERED: DEXTROSE 31 GM ORAL.SUSP PO PRN (12:36)
[2017-11-05] MEDS: INSULIN, 75/25 NPL/LISPRO 1 UNIT/0.01 ML UNIT SQ SCH (12:44)
[2017-11-05] MEDS: NOREPINEPHRINE BITARTRATE 16 MG in 0.9 % SODIUM CHLORIDE 234 ML IV SCH (17:24)
[2017-11-05] MEDS ORDERED: INSULIN GLARGINE, HUMAN 1 UNIT/0.01 ML SQ SCH (21:00)
[2017-11-05] MEDS: SENNOSIDES/DOCUSATE SODIUM 1 TAB TABLET PO SCH (21:09)
[2017-11-05] MEDS: INSULIN GLARGINE, HUMAN 1 UNIT/0.01 ML SQ SCH (21:32)
[2017-11-06 06:05] LABS: Mean Cell Volume 85.9 fL (80.0-100.0); Mean Corpuscular HGB Conc 31.7 g/dL (31.0-36.0); Mean Corpuscular Hemoglobin 27.2 pg (26.0-34.0); Platelet Count 293 K/mcL (140-440); RBC 4.83 M/mcL (4.50-5.90); Red Cell Distribution Width 14.8 % (11.5-14.5)
[2017-11-06] MEDS: PIPERACILLIN SODIUM/TAZOBACTAM 2.25 GM in DEXTROSE 5% IN WATER 50 ML IV SCH ×3 (06:07→21:49)
[2017-11-06 06:12] LABS: ALT/SGPT 25 U/l (0-40); Albumin 2.7 gm/dL (3.2-5.2); Albumin/Globulin Ratio 0.8 (1.0-2.3); Alkaline Phosphatase 133 U/L (39-117); Bilirubin,Direct 0.2 mg/dL (0.0-0.3); Blood Urea Nitrogen 73 mg/dl (8-23); Gamma Glutamyl Transpeptidase 39 U/L (8-61); Uric Acid 7.6 mg/dL (2.5-8.0)
[2017-11-06 06:18] LABS: Vancomycin,Random 17.8 ug/mL
[2017-11-06] MEDS: 0.9 % SODIUM CHLORIDE 250 ML IV SCH ×2 (06:46→20:21)
[2017-11-06] MEDS: 0.9 % SODIUM CHLORIDE 10 ML SYRINGE IV SCH ×3 (06:46→21:04)
[2017-11-06] MEDS: INSULIN LISPRO 1 UNIT/0.01 ML UNIT SQ SCH ×4 (07:44→21:02)
[2017-11-06] MEDS: INSULIN, 75/25 NPL/LISPRO 1 UNIT/0.01 ML UNIT SQ SCH (07:49)
[2017-11-06] MEDS: DOCUSATE SODIUM 100 MG CAPSULE PO SCH ×2 (07:50→21:04)
[2017-11-06] MEDS: SEVELAMER 800 MG TABLET PO SCH ×3 (07:50→17:51)
--- NOTE | 2017-11-06 08:18 | Nephrology Progress Note ---
Subjective Patient information: Note initiated : 11/06/17 at 8:15 am Patient: Brandon Austin 82 y/o M admitted on 11/02/17 for Pneumonia/Acute Renal Failure. Chief Complaint: Weakness. Principal diagnosis: Acute renal failure, fluid overload Interval history: Brandon Austin is an [id number] male with coronary artery disease, diabetes mellitus type 2, hypertension, hyperlipidemia admitted on 11/02/17 for recent onset anorexia, dyspnea and weakness for one month. Pertinent ROS: Weakness Objective - Vital Signs Vital signs: Vital Signs Pulse BP Pulse Ox 11/06/17 07:01 125/81 11/06/17 06:01 122/81 11/06/17 05:01 139/87 11/06/17 04:01 103/79 11/06/17 03:01 111/75 11/06/17 02:01 110/70 11/06/17 01:01 129/76 11/06/17 00:01 110/74 11/05/17 23:04 120/84 11/05/17 22:00 97/79 11/05/17 21:00 96/70 11/05/17 20:01 116/71 11/05/17 19:12 106/69 11/05/17 17:01 141/98 11/05/17 16:01 116/82 11/05/17 15:01 92 H 118/74 95 11/05/17 15:00 92 H 95 11/05/17 14:02 108 H 99 11/05/17 14:01 106 H 112/48 99 11/05/17 14:00 102 H 100 11/05/17 13:01 88 115/94 97 11/05/17 13:00 88 96 11/05/17 12:10 94/82 11/05/17 11:01 72 117/63 98 11/05/17 11:00 70 99 11/05/17 10:48 84 106/72 99 11/05/17 10:17 65 98 11/05/17 10:16 66 91/73 99 11/05/17 10:02 63 97/58 100 11/05/17 10:00 63 98 11/05/17 09:25 71 108/66 97 11/05/17 09:17 78/60 11/05/17 09:16 64/53 11/05/17 09:01 88/66 Intake and Output 11/05/17 11/06/17 11/06/17 21:59 05:59 13:59 Intake Total 790 / 790 50 / 50 183 / 183 Output Total 490 / 490 905 / 905 360 / 360 Balance 300 / 300 -855 / -855 -177 / -177 Intake: IV 390 / 390 50 / 50 183 / 183 Sodium Chloride 0.9% 250 ml @ 250 / 250 183 / 183 20 mls/hr IV .[id number] [facility] Rx#: [id number] Levophed 16 mg In Sodium 90 / 90 Chloride 0.9% 234 ml @ 10 MCG/ MIN 9.37 mls/hr IV Q24H [facility] Rx# :[id number] Zosyn 2.25 gm In Dextrose 5% in 50 / 50 50 / 50 Water 50 ml @ 100 mls/hr IV Q8H [facility] Rx#:[id number] Oral 400 / 400 Output: Urine Catheter Amount 490 / 490 905 / 905 360 / 360 Other: Meal Dinner Percent of Meal Consumed 100% Weight 183 lb 4.8 oz Intake & Output: Intake & Output 11/05/17 11/06/17 11/06/17 21:59 05:59 13:59 Intake Total 790 / 790 50 / 50 183 / 183 Output Total 490 / 490 905 / 905 360 / 360 Balance 300 / 300 -855 / -855 -177 / -177 Weight 183 lb 4.8 oz Intake: IV 390 / 390 50 / 50 183 / 183 Sodium Chloride 0.9% 250 ml @ 250 / 250 183 / 183 20 mls/hr IV .[id number] [facility] Rx#: [id number] Levophed 16 mg In Sodium 90 / 90 Chloride 0.9% 234 ml @ 10 MCG/ MIN 9.37 mls/hr IV Q24H [facility] Rx# :[id number] Zosyn 2.25 gm In Dextrose 5% in 50 / 50 50 / 50 Water 50 ml @ 100 mls/hr IV Q8H [facility] Rx#:[id number] Oral 400 / 400 Output: Urine Catheter Amount 490 / 490 905 / 905 360 / 360 Other: Meal Dinner Percent of Meal Consumed 100% - General Appearance General appearance: appears started age EENT: mucous membranes moist Neck: supple Respiratory: clear Cardiology: normal S1, normal S2 Gastrointestinal: no tenderness Integumentary: no rash, warm and dry Neurologic: alert and oriented x3 Musculoskeletal: no erythema, no cyanosis Psychiatric: mood/affect appropriate, cooperative - Lab 11/06/17 04:24 11/06/17 04:24 Most recent lab results Calcium 8.2 mg/dl (8.6-10.4) L 11/06/17 04:24 Phosphorus 5.8 mg/dL (2.7-4.5) H 11/06/17 04:24 Magnesium 2.3 mg/dL (1.6-2.5) 11/06/17 04:24 Assessment and Plan (1) Acute kidney failure with tubular necrosis Work up: CXR on 11/04/17: Bilateral parenchymal infiltrates and pleural fluid collections. No significant interval change since 11/03/2017 Echo on 11/03/17: LVEF 50-70%, moderate pulmonary hypertension and left pleural effusion. US Renal on 11/03/17: Abnormal resistive index bilaterally. No evidence for renal artery stenosis. US Renal on 11/02/17: No hydronephrosis. Mildly echogenic renal cortex bilaterally consistent with medical renal disease. Urinalysis on 11/02/17: Yellow, hazy, pH 5.0, SG 1.017, protein 30, occult blood negative. Random urine protein / creatinine ratio 11/02/17: Pending. Progress: Hemodialysis on 11/03/17 and 11/04/17. Levophed being weaned off. Urine output 1730 ml reported in the past 24 hours. Creatinine increased from 4.1 to 4.5 in the past 24 hours. Hyperphosphatemia, improved. Discussion: Etiology likely recent prescription medication change, Advil use and acute illness. Plan: Anticipate no dialysis need over the weekend. Wean off Levophed as tolerated. Monitor renal panel and urine output. Avoid IV contrast and nephrotoxic medications. Status: Acute Priority: High
--- NOTE | 2017-11-06 08:25 | XRay Report ---
INDICATION: History of congestive heart failure TECHNIQUE: AP chest x-ray,portable COMPARISON: Chest x-rays dated 11/05/2017, 11/04/2017, 11/03/2017 FINDINGS:No change in left-sided PICC line and right central venous catheter physicians. Bilateral pulmonary parenchymal infiltrates with bibasilar predominance. Bilateral pleural effusions. Overall appearance is essentially unchanged. No new abnormality. IMPRESSION: 1. Bilateral, bibasilar infiltrates and pleural effusions 2. No significant interval change since 11/05/2017 Interpreted and Authenticated by: Darius Andres 11/06/17
[2017-11-06] MEDS: ACETAMINOPHEN 325 MG TABLET PO PRN (08:52)
[2017-11-06] MEDS: FUROSEMIDE 40 MG/4 ML VIAL IV SCH ×2 (08:52→21:01)
[2017-11-06] MEDS: HEPARIN 5,000 UNIT/ML VIAL SQ SCH ×2 (08:52→21:02)
[2017-11-06 08:58] LABS: Eosinophils % (Manual) 1 % (0-7); Lymphocytes % 9 % (15-49); Monocytes % (Manual) 14 % (1-12); Platelet Estimate NORMAL (NORMAL); RBC Morphology NORMAL (NORMAL); Segmented Neutrophils % 76 % (38-78)
--- NOTE | 2017-11-06 16:10 | Internal Med Progress Note ---
Medical - PN: Subj Patient information: Note initiated : 11/06/17 at 4:08 pm Service Date, if different from initiated Date: [] Patient: Brandon Austin 82 y/o M admitted on 11/02/17 for Pneumonia/Acute Renal Failure. Chief Complaint: [] Interval history: The patient is an 82-year-old gentleman who lives with his , Lorie, at [facility] and has been in his baseline state of health with history of diabetes, hypertension. Over the last few of weeks, he has noticed increasing weight gain to the amount of 60 pounds. Patient has had difficulty voiding and emptying bladder. He, however, denies taking new medications. He had upper respiratory symptoms roughly 2 weeks ago and since then he has had progressive difficulty emptying. he has been trying to alleviate his symptoms with [id number] medications. He denies abdominal pain, bloody urine, bloody stool. He does have associated shortness of breath which has progressed from dyspnea on maximal exertion to dyspnea at rest. He is unable to perform activities of daily living. With increasing concerns, the patient was evaluated at [facility] ER today. Initial workup was significant for bibasilar infiltrates with parapneumonic effusion on chest imaging, along with acute renal failure with a creatinine of 4.3 and potassium 5.4 and a pH of 7.33 on basic panel. Due to lack of availability of beds at [facility], Hospitalist Service at [facility] was consulted. I received the phone sign-out from Dr. Senior, [facility] ED physician, and subsequently accepted the patient based on the above data. The patient on arrival appears stable. He was able to answer most of the questions. He is short of breath, was able to talk in full sentences. He endorses to history as above. He is , but his was not available for further evaluation of history. 11/03 patient seen and examined, overnight events noted, patient was hypotensive overnight, and was started on levophed drip, no icu bed available, hence was on the tele status with the drip. he was moved to icu today, as soon as bed opened, He has had poor urine output, and did not respond to lasix, nephrology following , plan to get temporary cath placed and dialysis to be initiated Echo reviewed, normal lvef, moderate pulm HTN noted pt on levophed, picc to be placed for pressor support On iv antibiotics rocepin, levofloxacin,, d/c same, start on vanco and zosyn CXR shows ricardo infiltrates, and pleural effusion. Renal USG shows abnormal restive indices, but no significant renal artery stenosis 11/04 Patient seen and examined, no acute overnight events, sitting comfortably in the bed. Blood pressure stable still on Levophed drip. The patient responded well to dialysis last night, this morning the patient has some urine output and response to Lasix. He will undergo dialysis again today. Nephrology is following. Like to wean off Levophed as tolerated, chest x-ray shows bilateral infiltrates and bilateral effusions patient is on broad- spectrum antibiotics. 11/05 Patient seen and examined, sitting comfortably in the chair no acute overnight events, still on pressors Levophed is running at 2 mics. The patient denies any acute complaints at this time. He has been making urine since last night and seems to be responding well to Lasix creatinine is trending down. Nephrology following. 11/06 Patient seen examined, no acute overnight events, patient still on pressors pressure was bumped up yesterday and is still at around 5-7 mics. The patient otherwise has no acute complaints. Patient's urine output is good, -1370 over 24 hours yesterday and is -900 today Patient's creatinine bumped up slightly Nephrology does not plan for dialysis today. Chest x-ray shows stable effusions Pertinent ROS: Denies headache, dizziness Denies chest pain, palpitations Denies cough or shortness of breath Denies abdominal pain, nausea or vomiting. - Constitutional Vitals: Vital Signs Temp Pulse Resp BP Pulse Ox 98.9 F 68 16 93/72 95 11/06/17 12:01 11/06/17 14:00 11/05/17 07:00 11/06/17 12:01 11/06/17 14:00 Period Temp Pulse Resp BP Sys/Kelly Pulse Ox Last 24 Hr 98.0 F-98.9 F 68-68 69-141/60-98 95 Intake and Output 11/06/17 11/06/17 11/06/17 05:59 13:59 21:59 Intake Total 50 / 50 553 / 553 200 / 200 Output Total 905 / 905 660 / 660 240 / 240 Balance -855 / -855 -107 / -107 -40 / -40 Weight 183 lb 4.8 oz Patient Weight 11/07/17 05:59 Weight 183 lb 4.8 oz Intake & Output: Intake & Output 11/06/17 11/06/17 11/06/17 05:59 13:59 21:59 Intake Total 50 / 50 553 / 553 200 / 200 Output Total 905 / 905 660 / 660 240 / 240 Balance -855 / -855 -107 / -107 -40 / -40 Weight 183 lb 4.8 oz Intake: IV 50 / 50 233 / 233 Sodium Chloride 0.9% 250 ml @ 183 / 183 20 mls/hr IV .[id number] KANDY Rx#: [id number] Zosyn 2.25 gm In Dextrose 5% in 50 / 50 50 / 50 Water 50 ml @ 100 mls/hr IV Q8H KANDY Rx#:[id number] Oral 320 / 320 200 / 200 Output: Urine Catheter Amount 905 / 905 660 / 660 240 / 240 Other: Meal Breakfast Lunch Percent of Meal Consumed 75% 50% Exam: Constitutional; Afebrile, cooperative, alert, not in distress. Eyes- No icterus, , No periorbital swelling Ears- Ext ear normal, hearing normal to conversation. Neck- Midline trachea, supple Respiratory system: Air Entry equal on both sides, Air entry decreased at both bases, very mild inspiratory crackles at the base CVS- Rate rhythm regular, S1,S2 heard, no gallop, no rub. Abdomen- Soft nontender abdomen, no organomegaly, no tenderness, no guarding or rigidity, ENAMEL DIPPER- AOOx3, moving all extremities, no gross focal deficit noted. , Medical - PN: Obj Da - Labs CBC & Chem 7: 11/06/17 04:24 11/06/17 04:24 Labs: Abnormal Lab Results 11/06/17 11/06/17 11/05/17 04:24 04:24 03:52 Hgb 13.2 L Hct RDW 14.8 H Seg Neutrophils % Lymphocytes % 9 L Monocytes % (Manual) 14 H RBC Morphology Anisocytosis Carbon Dioxide Anion Gap BUN 73 H 66 H Creatinine 4.5 H 4.1 H Glucose 155 H 192 H Uric Acid Calcium 8.2 L 8.1 L Phosphorus 5.8 H 6.0 H* Alkaline Phosphatase 133 H 145 H Albumin 2.7 L 2.7 L Globulin Albumin/Globulin Ratio 0.8 L 0.7 L 11/05/17 11/04/17 11/04/17 03:52 03:58 03:58 Hgb 13.2 L 13.3 L Hct 40.8 L RDW 14.9 H 15.0 H Seg Neutrophils % 82 H Lymphocytes % 7 L 13 L Monocytes % (Manual) RBC Morphology Abnorm A Anisocytosis 1+ A Carbon Dioxide Anion Gap BUN 94 H Creatinine 4.7 H Glucose 227 H Uric Acid 9.4 H Calcium 8.2 L Phosphorus 7.1 H* Alkaline Phosphatase 147 H Albumin 2.6 L Globulin 3.9 H Albumin/Globulin Ratio 0.7 L 11/03/17 18:05 Hgb Hct RDW Seg Neutrophils % Lymphocytes % Monocytes % (Manual) RBC Morphology Anisocytosis Carbon Dioxide 20 L Anion Gap 21.0 H BUN 116 H* Creatinine 5.3 H* Glucose 292 H Uric Acid Calcium Phosphorus Alkaline Phosphatase Albumin Globulin Albumin/Globulin Ratio Meds: Medications Acetaminophen (Tylenol) 650 mg PO Q4-6HP PRN PRN Reason: PAIN/FEVER > 101 Last Admin: 11/06/17 08:52 Dose: 650 mg Dextrose (Dextrose 50%) 0 ml IV UD PRN PRN Reason: Hypoglycemia Diagnostic Test (Pha) (Accu-Chek) 1 each FS ACHS [facility] Last Admin: 11/06/17 12:30 Dose: 1 each Docusate Sodium (Colace) 100 mg PO BID [facility] Last Admin: 11/06/17 07:50 Dose: 100 mg Furosemide (Lasix) 40 mg IV Q12 [facility] Last Admin: 11/06/17 08:52 Dose: 40 mg Glucose (Insta-Glucose) 15 gm PO PRN PRN PRN Reason: Hypoglycemia Heparin Sodium (Porcine) (Heparin) 5,000 unit SQ Q12 [facility] Last Admin: 11/06/17 08:52 Dose: 5,000 unit Heparin Sodium (Porcine) (Heparin Flush) 2 ml IV Q12 [facility] Last Admin: 11/06/17 08:52 Dose: 2 ml Magnesium Sulfate (Magnesium Sulfate) 2 gm in 50 mls @ 50 mls/hr IV UD PRN PRN Reason: MG = or < 1.7 Norepinephrine Bitartrate 16 (mg/ Sodium Chloride) 250 mls @ 9.37 mls/hr IV Q24H KANDY; 10 MCG/MIN PRN Reason: Protocol Last Admin: 11/05/17 17:24 Dose: 5 mcg/min, 4.68 mls/hr Acetaminophen (Ofirmev) 1,000 mg in 100 mls @ 200 mls/hr IV Q6HP PRN PRN Reason: PAIN/FEVER > 101 Sodium Chloride (Sodium Chloride 0.9%) 250 mls @ 20 mls/hr IV .[id number] [facility] Last Admin: 11/06/17 06:46 Dose: 20 mls/hr Piperacillin Sod/Tazobactam (Sod 2.25 gm/ Dextrose) 50 mls @ 100 mls/hr IV Q8H [facility] Last Admin: 11/06/17 14:28 Dose: 100 mls/hr Insulin Glargine (Lantus) 15 unit SQ HS [facility] Last Admin: 11/05/17 21:32 Dose: 15 unit Insulin Human Lispro (Humalog) 0 unit SQ ACHS [facility] PRN Reason: Protocol Last Admin: 11/06/17 12:30 Dose: Not Given Insulin Lispro Protam/Lispro Human (Humalog 75/25) 15 unit SQ ACB [facility] Last Admin: 11/06/17 07:49 Dose: 15 unit Ondansetron HCl (Zofran) 4 mg IV Q4-6HP PRN PRN Reason: Nausea And Vomiting Senna/Docusate Sodium (Senna Plus Tablet) 1 tab PO HS [facility] Last Admin: 11/05/17 21:09 Dose: Not Given Sevelamer Carbonate (Renvela) 800 mg PO TIDCC [facility] Last Admin: 11/06/17 13:08 Dose: 800 mg Sodium Chloride (Saline Flush) 10 ml IV UD PRN PRN Reason: FLUSH Sodium Chloride (Saline Flush) 10 ml IV Q12 [facility] Last Admin: 11/06/17 08:56 Dose: 10 ml Vancomycin HCl (Vancomycin Per Pharmacy) 1 order IV UD [facility] Medical - PN: A/P - Time Spent With Patient Total time spent is greater than 50% in coordination of care (as documented) at patient's floor/unit and/or counseling patient: - Narrative A/P Narrative: A/P Acute Kidney Injury Pulmonary Hypertension Pneumonia, Health care associated Altered Mental status Diabetes Mellitus type 2 Coronary Artery Disease Hypotensive shock hyperphosphatemia secondary to renal failure Plan continue to monitor in ICU nephrology following, kidney function slightly worse today however patient has good urine output levophed to map > 65, wean off pressors as tolerated Lactate normal Glucose control is good today. Patient is on Lantus 15 units at bedtime and sliding scale insulin continue vanco and zosyn for HCAP pna, day 3 of antibiotics a day monitor urine output DVT hep sq Full code Carb consistent diet renal diet Medical - PN: Qual - VTE Deep Vein Thrombosis/Pulmonary Embolism Present on Admission: No
[2017-11-06] MEDS: NOREPINEPHRINE BITARTRATE 16 MG in 0.9 % SODIUM CHLORIDE 234 ML IV SCH (17:52)
[2017-11-06] MEDS: INSULIN GLARGINE, HUMAN 1 UNIT/0.01 ML SQ SCH (21:02)
[2017-11-06] MEDS: SENNOSIDES/DOCUSATE SODIUM 1 TAB TABLET PO SCH (21:04)
[2017-11-07 05:00] LABS: Mean Cell Volume 84.5 fL (80.0-100.0); Mean Corpuscular HGB Conc 32.3 g/dL (31.0-36.0); Mean Corpuscular Hemoglobin 27.3 pg (26.0-34.0); Platelet Count 272 K/mcL (140-440); RBC 4.88 M/mcL (4.50-5.90); Red Cell Distribution Width 15.4 % (11.5-14.5)
[2017-11-07 05:21] LABS: ALT/SGPT 23 U/l (0-40); Albumin 2.8 gm/dL (3.2-5.2); Albumin/Globulin Ratio 0.8 (1.0-2.3); Alkaline Phosphatase 127 U/L (39-117); Bilirubin,Direct 0.2 mg/dL (0.0-0.3); Blood Urea Nitrogen 71 mg/dl (8-23); Gamma Glutamyl Transpeptidase 37 U/L (8-61); Uric Acid 7.5 mg/dL (2.5-8.0)
[2017-11-07 05:22] LABS: Vancomycin,Random 14.2 ug/mL
[2017-11-07] MEDS: PIPERACILLIN SODIUM/TAZOBACTAM 2.25 GM in DEXTROSE 5% IN WATER 50 ML IV SCH ×3 (05:47→21:36)
[2017-11-07 06:18] LABS: Basophils % (Manual) 1 % (0-2); Eosinophils % (Manual) 3 % (0-7); Lymphocytes % 9 % (15-49); Monocytes % (Manual) 12 % (1-12); Myelocytes % 1 % (0-0); Platelet Estimate NORMAL (NORMAL); RBC Morphology NORMAL (NORMAL); Segmented Neutrophils % 73 % (38-78)
[2017-11-07] MEDS: 0.9 % SODIUM CHLORIDE 250 ML IV SCH ×2 (06:41→20:47)
[2017-11-07] MEDS: INSULIN LISPRO 1 UNIT/0.01 ML UNIT SQ SCH ×4 (07:23→21:05)
--- NOTE | 2017-11-07 07:30 | Nephrology Progress Note ---
Subjective Patient information: Note initiated : 11/07/17 at 7:27 am Patient: Brandon Austin 82 y/o M admitted on 11/02/17 for Pneumonia/Acute Renal Failure. Chief Complaint: Weakness. Principal diagnosis: Acute renal failure, fluid overload Interval history: Brandon Austin is an [id number] male with coronary artery disease, diabetes mellitus type 2, hypertension, hyperlipidemia admitted on 11/02/17 for recent onset anorexia, dyspnea and weakness for one month. Pertinent ROS: Feels good. Off oxygen. [place] in. Less edema. Objective - Vital Signs Vital signs: Vital Signs Temp Pulse Pulse Resp BP Pulse Ox 11/07/17 07:01 70 96 11/07/17 07:00 71 122/72 94 11/07/17 06:02 76 97 11/07/17 06:01 75 114/79 96 11/07/17 06:00 72 95 11/07/17 05:02 64 96 11/07/17 05:01 64 119/93 95 11/07/17 04:01 62 96/66 95 11/07/17 03:01 72 117/80 100 11/07/17 02:01 66 127/72 95 11/07/17 01:01 66 119/79 96 11/07/17 00:01 66 113/71 95 11/06/17 23:01 69 126/78 96 11/06/17 22:01 18 110/75 95 11/06/17 21:01 16 120/73 98 11/06/17 20:01 16 111/71 98 11/06/17 19:30 18 119/107 96 11/06/17 17:01 94/84 11/06/17 16:00 107/85 11/06/17 15:45 108/67 11/06/17 14:00 68 95 11/06/17 12:01 98.9 F 93/72 11/06/17 11:01 99/72 11/06/17 10:01 69/60 11/06/17 09:37 98.0 F 11/06/17 09:01 112/76 11/06/17 08:52 98.0 F 11/06/17 08:01 124/72 11/06/17 08:00 68 Intake and Output 11/06/17 11/07/17 11/07/17 21:59 05:59 13:59 Intake Total 1335 / 1335 50 / 50 50 / 50 Output Total 775 / 775 1435 / 1435 90 / 90 Balance 560 / 560 -1385 / -1385 -40 / -40 Intake: IV 415 / 415 50 / 50 50 / 50 Sodium Chloride 0.9% 250 ml @ 250 / 250 20 mls/hr IV .[id number] KANDY Rx#: [id number] Levophed 16 mg In Sodium 115 / 115 Chloride 0.9% 234 ml @ 10 MCG/ MIN 9.37 mls/hr IV Q24H [facility]ANDY Rx# :[id number] Zosyn 2.25 gm In Dextrose 5% in 50 / 50 50 / 50 50 / 50 Water 50 ml @ 100 mls/hr IV Q8H [facility]ANDY Rx#:[id number] Oral 920 / 920 Output: Urine Catheter Amount 775 / 775 1435 / 1435 90 / 90 Other: Meal Dinner Percent of Meal Consumed 100% Feeding Ability Independent Weight 190 lb 12.8 oz Intake & Output: Intake & Output 11/06/17 11/07/17 11/07/17 21:59 05:59 13:59 Intake Total 1335 / 1335 50 / 50 50 / 50 Output Total 775 / 775 1435 / 1435 90 / 90 Balance 560 / 560 -1385 / -1385 -40 / -40 Weight 190 lb 12.8 oz Intake: IV 415 / 415 50 / 50 50 / 50 Sodium Chloride 0.9% 250 ml @ 250 / 250 20 mls/hr IV .[id number] KANDY Rx#: [id number] Levophed 16 mg In Sodium 115 / 115 Chloride 0.9% 234 ml @ 10 MCG/ MIN 9.37 mls/hr IV Q24H [facility]ANDY Rx# :[id number] Zosyn 2.25 gm In Dextrose 5% in 50 / 50 50 / 50 50 / 50 Water 50 ml @ 100 mls/hr IV Q8H [facility]ANDY Rx#:[id number] Oral 920 / 920 Output: Urine Catheter Amount 775 / 775 1435 / 1435 90 / 90 Other: Meal Dinner Percent of Meal Consumed 100% Feeding Ability Independent - General Appearance General appearance: appears started age EENT: mucous membranes moist Neck: supple Respiratory: clear Cardiology: edema Gastrointestinal: no tenderness Integumentary: warm and dry Neurologic: alert and oriented x3 Musculoskeletal: no erythema, no cyanosis Psychiatric: mood/affect appropriate - Lab 11/07/17 03:42 11/07/17 03:42 Most recent lab results Calcium 8.1 mg/dl (8.6-10.4) L 11/07/17 03:42 Phosphorus 5.4 mg/dL (2.7-4.5) H 11/07/17 03:42 Magnesium 2.2 mg/dL (1.6-2.5) 11/07/17 03:42 Assessment and Plan (1) Acute kidney failure with tubular necrosis Work up: CXR on 11/04/17: Bilateral parenchymal infiltrates and pleural fluid collections. No significant interval change since 11/03/2017 Echo on 11/03/17: LVEF 50-70%, moderate pulmonary hypertension and left pleural effusion. US Renal on 11/03/17: Abnormal resistive index bilaterally. No evidence for renal artery stenosis. US Renal on 11/02/17: No hydronephrosis. Mildly echogenic renal cortex bilaterally consistent with medical renal disease. Urinalysis on 11/02/17: Yellow, hazy, pH 5.0, SG 1.017, protein 30, occult blood negative. Random urine protein / creatinine ratio 11/02/17: Pending. Progress: Hemodialysis on 11/03/17 and 11/04/17. Levophed. Urine output 2870 ml reported in the past 24 hours. Creatinine increased from 4.1 to 4.8 in the past 48 hours without dialysis; eGFR <10. Hyperphosphatemia, improved. Discussion: Etiology likely recent prescription medication change, Advil use and acute illness. Plan: Hemodialysis today for uremia and fluid overload; 3 hours, 2 kg UF target. Levophed target changed to MAP of 60. Monitor renal panel and urine output. Avoid IV contrast and nephrotoxic medications. Status: Acute Priority: High
[2017-11-07] MEDS: INSULIN, 75/25 NPL/LISPRO 1 UNIT/0.01 ML UNIT SQ SCH (08:11)
[2017-11-07] MEDS: SEVELAMER 800 MG TABLET PO SCH ×3 (08:12→20:44)
[2017-11-07] MEDS: HEPARIN 5,000 UNIT/ML VIAL SQ SCH ×2 (09:01→21:28)
[2017-11-07] MEDS: FUROSEMIDE 40 MG/4 ML VIAL IV SCH ×2 (09:01→21:28)
[2017-11-07] MEDS: DOCUSATE SODIUM 100 MG CAPSULE PO SCH ×2 (09:03→21:06)
[2017-11-07] MEDS: 0.9 % SODIUM CHLORIDE 10 ML SYRINGE IV SCH ×2 (09:04→21:30)
--- NOTE | 2017-11-07 12:59 | Internal Med Progress Note ---
Medical - PN: Subj Patient information: Note initiated : 11/07/17 at 12:57 pm Service Date, if different from initiated Date: [] Patient: Brandon Austin 82 y/o M admitted on 11/02/17 for Pneumonia/Acute Renal Failure. Chief Complaint: [] Interval history: The patient is an 82-year-old gentleman who lives with his , Lorie, at [facility] and has been in his baseline state of health with history of diabetes, hypertension. Over the last few of weeks, he has noticed increasing weight gain to the amount of 60 pounds. Patient has had difficulty voiding and emptying bladder. He, however, denies taking new medications. He had upper respiratory symptoms roughly 2 weeks ago and since then he has had progressive difficulty emptying. he has been trying to alleviate his symptoms with [id number] medications. He denies abdominal pain, bloody urine, bloody stool. He does have associated shortness of breath which has progressed from dyspnea on maximal exertion to dyspnea at rest. He is unable to perform activities of daily living. With increasing concerns, the patient was evaluated at ER today. Initial workup was significant for bibasilar infiltrates with parapneumonic effusion on chest imaging, along with acute renal failure with a creatinine of 4.3 and potassium 5.4 and a pH of 7.33 on basic panel. Due to lack of availability of beds at , Hospitalist Service at [facility] was consulted. I received the phone sign-out from Dr. Senior, ED physician, and subsequently accepted the patient based on the above data. The patient on arrival appears stable. He was able to answer most of the questions. He is short of breath, was able to talk in full sentences. He endorses to history as above. He is , but his was not available for further evaluation of history. 11/03 patient seen and examined, overnight events noted, patient was hypotensive overnight, and was started on levophed drip, no icu bed available, hence was on the tele status with the drip. he was moved to icu today, as soon as bed opened, He has had poor urine output, and did not respond to lasix, nephrology following , plan to get temporary cath placed and dialysis to be initiated Echo reviewed, normal lvef, moderate pulm HTN noted pt on levophed, picc to be placed for pressor support On iv antibiotics rocepin, levofloxacin,, d/c same, start on vanco and zosyn CXR shows ricardo infiltrates, and pleural effusion. Renal USG shows abnormal restive indices, but no significant renal artery stenosis 11/04 Patient seen and examined, no acute overnight events, sitting comfortably in the bed. Blood pressure stable still on Levophed drip. The patient responded well to dialysis last night, this morning the patient has some urine output and response to Lasix. He will undergo dialysis again today. Nephrology is following. Like to wean off Levophed as tolerated, chest x-ray shows bilateral infiltrates and bilateral effusions patient is on broad- spectrum antibiotics. 11/05 Patient seen and examined, sitting comfortably in the chair no acute overnight events, still on pressors Levophed is running at 2 mics. The patient denies any acute complaints at this time. He has been making urine since last night and seems to be responding well to Lasix creatinine is trending down. Nephrology following. 11/06 Patient seen examined, no acute overnight events, patient still on pressors pressure was bumped up yesterday and is still at around 5-7 mics. The patient otherwise has no acute complaints. Patient's urine output is good, -1370 over 24 hours yesterday and is -900 today Patient's creatinine bumped up slightly Nephrology does not plan for dialysis today. Chest x-ray shows stable effusions 11/07=- patient seen in room. Multiple family members. Interest family concerns. Patient currently on room air. On 3 mics Levophed. Pressors managed by nephrology. Improving urine output but blood-tinged. No concerns expressed by nursing staff. No telemetry events. - Constitutional Vitals: Vital Signs Temp Pulse Resp BP Pulse Ox 98 F 63 18 102/64 97 11/07/17 12:00 11/07/17 11:01 11/07/17 12:00 11/07/17 12:00 11/07/17 12:00 Period Temp Pulse Resp BP Sys/Kelly Pulse Ox Last 24 Hr 97.2 F-98 F 62-76 16-18 81-127/53-107 94-100 Intake and Output 11/06/17 11/07/17 11/07/17 21:59 05:59 13:59 Intake Total 1335 / 1335 50 / 50 116 / 116 Output Total 775 / 775 1435 / 1435 370 / 370 Balance 560 / 560 -1385 / -1385 -254 / -254 Weight 190 lb 12.8 oz Intake & Output: Intake & Output 11/06/17 11/07/17 11/07/17 21:59 05:59 13:59 Intake Total 1335 / 1335 50 / 50 116 / 116 Output Total 775 / 775 1435 / 1435 370 / 370 Balance 560 / 560 -1385 / -1385 -254 / -254 Weight 190 lb 12.8 oz Intake: IV 415 / 415 50 / 50 116 / 116 Sodium Chloride 0.9% 250 ml @ 250 / 250 20 mls/hr IV .[id number] [facility] Rx#: [id number] Levophed 16 mg In Sodium 115 / 115 66 / 66 Chloride 0.9% 234 ml @ 10 MCG/ MIN 9.37 mls/hr IV Q24H [facility] Rx# :[id number] Zosyn 2.25 gm In Dextrose 5% in 50 / 50 50 / 50 50 / 50 Water 50 ml @ 100 mls/hr IV Q8H [facility] Rx#:[id number] Oral 920 / 920 Output: Urine Catheter Amount 775 / 775 1435 / 1435 370 / 370 Other: Meal Dinner Percent of Meal Consumed 100% Feeding Ability Independent General appearance: cooperative, no acute distress Exam: alert oriented sitting comfortably in chair Foleys draining blood-tinged urine No anxiety no lymphedema Medical - PN: Obj Da - Labs CBC & Chem 7: 11/07/17 03:42 11/07/17 03:42 Labs: Abnormal Lab Results 11/07/17 11/07/17 11/06/17 03:42 03:42 04:24 Hgb 13.4 L Hct RDW 15.4 H Seg Neutrophils % Lymphocytes % 9 L Monocytes % (Manual) Myelocytes % 1 H BUN 71 H 73 H Creatinine 4.8 H 4.5 H Glucose 155 H Calcium 8.1 L 8.2 L Phosphorus 5.4 H 5.8 H Alkaline Phosphatase 127 H 133 H Albumin 2.8 L 2.7 L Albumin/Globulin Ratio 0.8 L 0.8 L 11/06/17 11/05/1711/05/18 04:24 03:52 03:52 Hgb 13.2 L 13.2 L Hct 40.8 L RDW 14.8 H 14.9 H Seg Neutrophils % 82 H Lymphocytes % 9 L 7 L Monocytes % (Manual) 14 H Myelocytes % BUN 66 H Creatinine 4.1 H Glucose 192 H Calcium 8.1 L Phosphorus 6.0 H* Alkaline Phosphatase 145 H Albumin 2.7 L Albumin/Globulin Ratio 0.7 L Meds: Medications Acetaminophen (Tylenol) 650 mg PO Q4-6HP PRN PRN Reason: PAIN/FEVER > 101 Last Admin: 11/06/17 08:52 Dose: 650 mg Dextrose (Dextrose 50%) 0 ml IV UD PRN PRN Reason: Hypoglycemia Diagnostic Test (Pha) (Accu-Chek) 1 each FS ACHS [facility] Last Admin: 11/07/17 11:44 Dose: 1 each Docusate Sodium (Colace) 100 mg PO BID [facility] Last Admin: 11/07/17 09:03 Dose: Not Given Furosemide (Lasix) 40 mg IV Q12 [facility] Last Admin: 11/07/17 09:01 Dose: 40 mg Glucose (Insta-Glucose) 15 gm PO PRN PRN PRN Reason: Hypoglycemia Heparin Sodium (Porcine) (Heparin) 5,000 unit SQ Q12 [facility] Last Admin: 11/07/17 09:01 Dose: 5,000 unit Heparin Sodium (Porcine) (Heparin Flush) 2 ml IV Q12 [facility] Last Admin: 11/07/17 09:02 Dose: 2 ml Magnesium Sulfate (Magnesium Sulfate) 2 gm in 50 mls @ 50 mls/hr IV UD PRN PRN Reason: MG = or < 1.7 Norepinephrine Bitartrate 16 (mg/ Sodium Chloride) 250 mls @ 9.37 mls/hr IV Q24H [facility]; 10 MCG/MIN PRN Reason: Protocol Last Titration: 11/07/17 11:00 Dose: 2 mcg/min, 1.87 mls/hr Acetaminophen (Ofirmev) 1,000 mg in 100 mls @ 200 mls/hr IV Q6HP PRN PRN Reason: PAIN/FEVER > 101 Sodium Chloride (Sodium Chloride 0.9%) 250 mls @ 20 mls/hr IV .[id number] [facility] Last Admin: 11/07/17 06:41 Dose: Not Given Piperacillin Sod/Tazobactam (Sod 2.25 gm/ Dextrose) 50 mls @ 100 mls/hr IV Q8H [facility] Last Infusion: 11/07/17 06:20 Dose: Infused Insulin Glargine (Lantus) 15 unit SQ HS [facility] Last Admin: 11/06/17 21:02 Dose: 15 unit Insulin Human Lispro (Humalog) 0 unit SQ ACHS [facility] PRN Reason: Protocol Last Admin: 11/07/17 11:44 Dose: Not Given Insulin Lispro Protam/Lispro Human (Humalog 75/25) 15 unit SQ ACB [facility] Last Admin: 11/07/17 08:11 Dose: 15 unit Ondansetron HCl (Zofran) 4 mg IV Q4-6HP PRN PRN Reason: Nausea And Vomiting Senna/Docusate Sodium (Senna Plus Tablet) 1 tab PO HS [facility] Last Admin: 11/06/17 21:04 Dose: Not Given Sevelamer Carbonate (Renvela) 800 mg PO TIDCC [facility] Last Admin: 11/07/17 12:33 Dose: 800 mg Sodium Chloride (Saline Flush) 10 ml IV UD PRN PRN Reason: FLUSH Sodium Chloride (Saline Flush) 10 ml IV Q12 [facility] Last Admin: 11/07/17 09:04 Dose: 10 ml Vancomycin HCl (Vancomycin Per Pharmacy) 1 order IV UD [facility] Medical - PN: A/P - Time Spent With Patient Total time spent is greater than 50% in coordination of care (as documented) at patient's floor/unit and/or counseling patient: 15 - 24 minutes - Narrative A/P Narrative: A/P Acute Kidney Injury Pulmonary Hypertension Pneumonia, Health care associated Altered Mental status Diabetes Mellitus type 2 Coronary Artery Disease Hypotensive shock hyperphosphatemia secondary to renal failure Plan continue pressors nephrology following hemodialysis and renal function Glucose control is good today. Patient is on Lantus 15 units at bedtime and sliding scale insulin continue vanco and zosyn for HCAP pna, day 4 /7 DVT hep sq Full code Carb consistent diet renal diet Medical - PN: Qual - VTE Deep Vein Thrombosis/Pulmonary Embolism Present on Admission: No
[2017-11-07] MEDS ORDERED: MIDODRINE 5 MG TABLET PO PRN (15:58)
[2017-11-07] MEDS: NOREPINEPHRINE BITARTRATE 16 MG in 0.9 % SODIUM CHLORIDE 234 ML IV SCH (17:46)
[2017-11-07] MEDS ORDERED: VANCOMYCIN 1,500 MG in 0.9 % SODIUM CHLORIDE 500 ML IV ONE (20:00)
[2017-11-07] MEDS: SENNOSIDES/DOCUSATE SODIUM 1 TAB TABLET PO SCH (21:10)
[2017-11-07] MEDS: INSULIN GLARGINE, HUMAN 1 UNIT/0.01 ML SQ SCH (21:28)
[2017-11-08 04:34] LABS: Mean Cell Volume 84.4 fL (80.0-100.0); Mean Corpuscular HGB Conc 32.7 g/dL (31.0-36.0); Mean Corpuscular Hemoglobin 27.6 pg (26.0-34.0); Platelet Count 222 K/mcL (140-440); RBC 4.62 M/mcL (4.50-5.90); Red Cell Distribution Width 15.2 % (11.5-14.5)
[2017-11-08 05:05] LABS: ALT/SGPT 22 U/l (0-40); Albumin 2.7 gm/dL (3.2-5.2); Albumin/Globulin Ratio 0.8 (1.0-2.3); Alkaline Phosphatase 117 U/L (39-117); Bilirubin,Direct 0.2 mg/dL (0.0-0.3); Blood Urea Nitrogen 43 mg/dl (8-23); Gamma Glutamyl Transpeptidase 36 U/L (8-61); Uric Acid 4.9 mg/dL (2.5-8.0)
[2017-11-08 05:30] LABS: Band Neutrophils % 4 % (0-10); Basophils % (Manual) 1 % (0-2); Eosinophils % (Manual) 9 % (0-7); Lymphocytes % 9 % (15-49); Monocytes % (Manual) 8 % (1-12); Platelet Estimate NORMAL (NORMAL); RBC Morphology NORMAL (NORMAL); Segmented Neutrophils % 69 % (38-78)
[2017-11-08] MEDS: PIPERACILLIN SODIUM/TAZOBACTAM 2.25 GM in DEXTROSE 5% IN WATER 50 ML IV SCH ×3 (05:56→21:31)
--- NOTE | 2017-11-08 07:16 | Nephrology Progress Note ---
Subjective Patient information: Note initiated : 11/08/17 at 7:14 am Patient: Brandon Austin 82 y/o M admitted on 11/02/17 for Pneumonia/Acute Renal Failure. Chief Complaint: Weakness. Principal diagnosis: Acute renal failure, fluid overload Interval history: Brandon Austin is an [id number]-bih male with coronary artery disease, diabetes mellitus type 2, hypertension, hyperlipidemia admitted on 11/02/17 for recent onset anorexia, dyspnea and weakness for one month. Pertinent ROS: Weakness. Edema. No shortness of breath or chest pain. Objective - Vital Signs Vital signs: Vital Signs Temp Pulse Pulse Resp BP Pulse Ox 11/08/17 06:01 126/66 92 11/08/17 05:01 115/65 94 11/08/17 04:00 95/66 94 11/08/17 03:00 104/72 94 11/08/17 02:00 96/67 93 11/08/17 01:00 117/73 95 11/08/17 00:01 106/73 94 11/07/17 23:01 89/67 95 11/07/17 22:01 119/69 11/07/17 21:01 102/71 96 11/07/17 20:00 95 11/07/17 19:42 97.5 F 16 100/71 93 11/07/17 19:00 97.5 F 16 118/62 96 11/07/17 18:35 97.7 F 81 116/82 18 18:31 116/82 94 18 18:25 77 116/82 18 18:16 103/76 95 18 18:11 81 103/76 18 18:01 99/76 99 18 18:00 100 18 17:54 76 99/76 18 17:46 102/68 98 18 17:39 71 102/68 18 17:32 96 11/07/17 17:31 101/64 98 18 17:22 77 101/64 18 17:16 98/63 96 18 17:05 80 98/63 11/07/17 17:01 92/71 97 11/07/17 17:00 97 11/07/17 16:55 104/60 99 03/19/18 16:50 79 92/71 11/07/17 16:35 73 104/60 11/07/17 16:31 97/61 96 11/07/17 16:20 79 97/61 11/07/17 16:16 103/66 97 11/07/17 16:05 75 103/66 11/07/17 16:02 98 11/07/17 16:01 106/71 99 11/07/17 16:00 100 11/07/17 15:50 69 106/71 11/07/17 15:46 97/63 100 11/07/17 15:42 94/78 97 11/07/17 15:35 97.6 F 95 H 94/48 11/07/17 15:02 98 11/07/17 15:01 98/59 96 11/07/17 15:00 97 11/07/17 14:02 93 11/07/17 14:01 98/62 92 11/07/17 14:00 68 18 93 11/07/17 13:01 98/60 11/07/17 12:01 103/64 11/07/17 12:00 98 F 18 102/64 97 11/07/17 11:39 67 102/64 94 11/07/17 11:12 67 79/50 97 11/07/17 11:02 65 98 11/07/17 11:01 63 81/53 96 11/07/17 11:00 65 95 11/07/17 10:02 91/61 11/07/17 09:15 124/70 11/07/17 08:01 67 95 11/07/17 08:00 66 106/66 96 11/07/17 07:28 97.2 F Intake and Output 11/07/17 11/08/17 11/08/17 21:59 05:59 13:59 Intake Total 643 / 643 56 / 56 Output Total 2460 / 2460 725 / 725 60 / 60 Balance -1817 / -1817 -669 / -669 -60 / -60 Intake: IV 263 / 263 56 / 56 Sodium Chloride 0.9% 250 ml @ 250 / 250 20 mls/hr IV .[id number] [facility] Rx#: [id number] Levophed 16 mg In Sodium 13 / 13 6 / 6 Chloride 0.9% 234 ml @ 10 MCG/ MIN 9.37 mls/hr IV Q24H [facility] Rx# :[id number] Zosyn 2.25 gm In Dextrose 5% in 50 / 50 Water 50 ml @ 100 mls/hr IV Q8H [facility] Rx#:[id number] Oral 380 / 380 Output: Urine Catheter Amount 460 / 460 725 / 725 60 / 60 Hemodialysis UF 1999 Other: Meal Dinner Percent of Meal Consumed 50% Feeding Ability Independent Stool Size Large Stool Color Brown Stool Consistency Liquid Weight 188 lb 11.2 oz Intake & Output: Intake & Output 11/07/17 11/08/17 11/08/17 21:59 05:59 13:59 Intake Total 643 / 643 56 / 56 Output Total 2460 / 2460 725 / 725 60 / 60 Balance -1817 / -1817 -669 / -669 -60 / -60 Weight 188 lb 11.2 oz Intake: IV 263 / 263 56 / 56 Sodium Chloride 0.9% 250 ml @ 250 / 250 20 mls/hr IV .[id number] [facility] Rx#: [id number] Levophed 16 mg In Sodium / 13 6 / 6 Chloride 0.9% 234 ml @ 10 MCG/ MIN 9.37 mls/hr IV Q24H [facility] Rx# :[id number] Zosyn 2.25 gm In Dextrose 5% in 50 / 50 Water 50 ml @ 100 mls/hr IV Q8H [facility] Rx#:[id number] Oral 380 / 380 Output: Urine Catheter Amount 460 / 460 725 / 725 60 / 60 Hemodialysis UF 1999 Other: Meal Dinner Percent of Meal Consumed 50% Feeding Ability Independent Stool Size Large Stool Color Brown Stool Consistency Liquid - General Appearance General appearance: appears started age EENT: mucous membranes moist Neck: supple Respiratory: clear Cardiology: edema, normal S1, normal S2 Gastrointestinal: no tenderness Integumentary: warm and dry Neurologic: alert and oriented x3 Musculoskeletal: no erythema, no cyanosis Psychiatric: mood/affect appropriate, cooperative - Lab 11/08/17 04:00 11/08/17 04:00 Most recent lab results Calcium 8.0 mg/dl (8.6-10.4) L 11/08/17 04:00 Phosphorus 4.0 mg/dL (2.7-4.5) 11/08/17 04:00 Magnesium 2.0 mg/dL (1.6-2.5) 11/08/17 04:00 Assessment and Plan (1) Acute kidney failure with tubular necrosis Work up: CXR on 11/04/17: Bilateral parenchymal infiltrates and pleural fluid collections. No significant interval change since 11/03/2017 Echo on 11/03/17: LVEF 50-70%, moderate pulmonary hypertension and left pleural effusion. US Renal on 11/03/17: Abnormal resistive index bilaterally. No evidence for renal artery stenosis. US Renal on 11/02/17: No hydronephrosis. Mildly echogenic renal cortex bilaterally consistent with medical renal disease. Urinalysis on 11/02/17: Yellow, hazy, pH 5.0, SG 1.017, protein 30, occult blood negative. Random urine protein / creatinine ratio 11/02/17: Pending. Progress: Hemodialysis on 11/03, 11/04 and 11/07. Levophed off. Urine output 1755 ml reported in the past 24 hours. Hyperphosphatemia, resolved. Discussion: Etiology likely recent prescription medication change, Advil use and acute illness. Plan: Monitor dialysis need with renal panel and urine output. Avoid IV contrast and nephrotoxic medications. Status: Acute Priority: High (2) Anasarca Improved with good urine output and ultrafiltration with dialysis. Consider diuretics since hypotension improved. Status: Acute Priority: Medium
[2017-11-08] MEDS: INSULIN LISPRO 1 UNIT/0.01 ML UNIT SQ SCH ×4 (07:42→21:28)
[2017-11-08] MEDS: SEVELAMER 800 MG TABLET PO SCH ×3 (07:56→17:30)
[2017-11-08] MEDS: INSULIN, 75/25 NPL/LISPRO 1 UNIT/0.01 ML UNIT SQ SCH (07:59)
[2017-11-08] MEDS: DOCUSATE SODIUM 100 MG CAPSULE PO SCH ×2 (08:49→21:22)
[2017-11-08] MEDS: FUROSEMIDE 40 MG/4 ML VIAL IV SCH ×2 (08:49→21:29)
[2017-11-08] MEDS: HEPARIN 5,000 UNIT/ML VIAL SQ SCH ×2 (08:49→21:29)
[2017-11-08] MEDS: 0.9 % SODIUM CHLORIDE 10 ML SYRINGE IV SCH ×2 (08:50→21:30)
[2017-11-08] MEDS: 0.9 % SODIUM CHLORIDE 250 ML IV SCH ×2 (08:52→11:48)
[2017-11-08] MEDS ORDERED: DEXTROSE 31 GM ORAL.SUSP PO PRN (11:18)
[2017-11-08] MEDS ORDERED: ACETAMINOPHEN 1,000 MG/100 ML BOTTLE IV PRN (11:18)
[2017-11-08] MEDS ORDERED: VANCOMYCIN PER PHARMACY IV SCH (11:18)
[2017-11-08] MEDS ORDERED: ONDANSETRON 4 MG/2 ML VIAL IV PRN (11:18)
[2017-11-08] MEDS ORDERED: DEXTROSE 50% 50 ML VIAL IV PRN (11:18)
[2017-11-08] MEDS ORDERED: MIDODRINE 5 MG TABLET PO PRN (11:18)
[2017-11-08] MEDS ORDERED: 0.9 % SODIUM CHLORIDE 10 ML SYRINGE IV PRN (11:18)
[2017-11-08] MEDS ORDERED: ACETAMINOPHEN 325 MG TABLET PO PRN (11:18)
[2017-11-08] MEDS ORDERED: MAGNESIUM SULFATE 2 GM/50 ML BAG IV PRN (11:18)
--- NOTE | 2017-11-08 15:21 | Internal Med Progress Note ---
Medical - PN: Subj Patient information: Note initiated : 11/08/17 at 3:21 pm Service Date, if different from initiated Date: [] Patient: Brandon Austin 82 y/o M admitted on 11/02/17 for Pneumonia/Acute Renal Failure. Chief Complaint: [] Interval history: The patient is an 82-year-old gentleman who lives with his , Lorie, at [facility] and has been in his baseline state of health with history of diabetes, hypertension. Over the last few of weeks, he has noticed increasing weight gain to the amount of 60 pounds. Patient has had difficulty voiding and emptying bladder. He, however, denies taking new medications. He had upper respiratory symptoms roughly 2 weeks ago and since then he has had progressive difficulty emptying. he has been trying to alleviate his symptoms with lxah-plg-ejxtxvo medications. He denies abdominal pain, bloody urine, bloody stool. He does have associated shortness of breath which has progressed from dyspnea on maximal exertion to dyspnea at rest. He is unable to perform activities of daily living. With increasing concerns, the patient was evaluated at [facility] ER today. Initial workup was significant for bibasilar infiltrates with parapneumonic effusion on chest imaging, along with acute renal failure with a creatinine of 4.3 and potassium 5.4 and a pH of 7.33 on basic panel. Due to lack of availability of beds at [facility], Hospitalist Service at [facility] was consulted. I received the phone sign-out from Dr. Senior, [facility] ED physician, and subsequently accepted the patient based on the above data. The patient on arrival appears stable. He was able to answer most of the questions. He is short of breath, was able to talk in full sentences. He endorses to history as above. He is , but his was not available for further evaluation of history. 11/03 patient seen and examined, overnight events noted, patient was hypotensive overnight, and was started on levophed drip, no icu bed available, hence was on the tele status with the drip. he was moved to icu today, as soon as bed opened, He has had poor urine output, and did not respond to lasix, nephrology following , plan to get temporary cath placed and dialysis to be initiated Echo reviewed, normal lvef, moderate pulm HTN noted pt on levophed, picc to be placed for pressor support On iv antibiotics rocepin, levofloxacin,, d/c same, start on vanco and zosyn CXR shows ricardo infiltrates, and pleural effusion. Renal USG shows abnormal restive indices, but no significant renal artery stenosis 11/04 Patient seen and examined, no acute overnight events, sitting comfortably in the bed. Blood pressure stable still on Levophed drip. The patient responded well to dialysis last night, this morning the patient has some urine output and response to Lasix. He will undergo dialysis again today. Nephrology is following. Like to wean off Levophed as tolerated, chest x-ray shows bilateral infiltrates and bilateral effusions patient is on broad- spectrum antibiotics. 11/05 Patient seen and examined, sitting comfortably in the chair no acute overnight events, still on pressors Levophed is running at 2 mics. The patient denies any acute complaints at this time. He has been making urine since last night and seems to be responding well to Lasix creatinine is trending down. Nephrology following. 11/06 Patient seen examined, no acute overnight events, patient still on pressors pressure was bumped up yesterday and is still at around 5-7 mics. The patient otherwise has no acute complaints. Patient's urine output is good, -1370 over 24 hours yesterday and is -900 today Patient's creatinine bumped up slightly Nephrology does not plan for dialysis today. Chest x-ray shows stable effusions 11/07=- patient seen in room. Multiple family members. Interest family concerns. Patient currently on room air. On 3 mics Levophed. Pressors managed by nephrology. Improving urine output but blood-tinged. No concerns expressed by nursing staff. No telemetry events. 11/08- Patient off pressors. No overnight event. Improving urine output. Hemodialysis ongoing per nephrology. No fever chills or concerns per staff. Family at bedside. Discussed treatment plan and clinical improvement. Transfer to telemetry. - Constitutional Vitals: Vital Signs Temp Pulse Resp BP Pulse Ox 97.4 F 81 18 104/88 96 11/08/17 11:23 11/07/17 18:35 11/08/17 11:23 11/08/17 11:23 11/08/17 11:23 Period Temp Pulse Resp BP Sys/Kelly Pulse Ox Last 24 Hr 97.4 F-97.7 F 69-95 16-18 89-126/48-88 92-100 Intake and Output 11/08/17 11/08/17 11/08/17 05:59 13:59 21:59 Intake Total 56 / 56 50 / 50 Output Total 725 / 725 420 / 420 120 / 120 Balance -669 / -669 -370 / -370 -120 / -120 Intake & Output: Intake & Output 11/08/17 11/08/17 11/08/17 05:59 13:59 21:59 Intake Total 56 / 56 50 / 50 Output Total 725 / 725 420 / 420 120 / 120 Balance -669 / -669 -370 / -370 -120 / -120 Intake: IV 56 / 56 50 / 50 Levophed 16 mg In Sodium 6 / 6 Chloride 0.9% 234 ml @ 10 MCG/ MIN 9.37 mls/hr IV Q24H [facility] Rx# :[id number] Zosyn 2.25 gm In Dextrose 5% in 50 / 50 50 / 50 Water 50 ml @ 100 mls/hr IV Q8H [facility] Rx#:[id number] Output: Urine Catheter Amount 725 / 725 420 / 420 120 / 120 Other: Stool Size Moderate Stool Color Brown Stool Consistency Formed # Bowel Movements 1 General appearance: cooperative, no acute distress Exam: alert oriented nonlabored breathing Foleys draining clear urine No telemetry events Medical - PN: Obj Da - Labs CBC & Chem 7: 11/08/17 04:00 11/08/17 04:00 Labs: Abnormal Lab Results 11/08/17 11/08/17 11/07/17 04:00 04:00 03:42 Hgb 12.8 L Hct 39.0 L RDW 15.2 H Lymphocytes % 9 L Monocytes % (Manual) Eosinophils % (Manual) 9 H Myelocytes % BUN 43 H 71 H Creatinine 3.5 H 4.8 H Glucose 62 L Calcium 8.0 L 8.1 L Phosphorus 5.4 H Alkaline Phosphatase 127 H Albumin 2.7 L 2.8 L Albumin/Globulin Ratio 0.8 L 0.8 L 11/07/17 11/06/17 11/06/17 03:42 04:24 04:24 Hgb 13.4 L 13.2 L Hct RDW 15.4 H 14.8 H Lymphocytes % 9 L 9 L Monocytes % (Manual) 14 H Eosinophils % (Manual) Myelocytes % 1 H BUN 73 H Creatinine 4.5 H Glucose 155 H Calcium 8.2 L Phosphorus 5.8 H Alkaline Phosphatase 133 H Albumin 2.7 L Albumin/Globulin Ratio 0.8 L Meds: Medications Acetaminophen (Tylenol) 650 mg PO Q4-6HP PRN PRN Reason: PAIN/FEVER > 101 Dextrose (Dextrose 50%) 0 ml IV UD PRN PRN Reason: Hypoglycemia Diagnostic Test (Pha) (Accu-Chek) 1 each FS ACHS [facility] Last Admin: 11/08/17 11:44 Dose: 1 each Docusate Sodium (Colace) 100 mg PO BID [facility] Furosemide (Lasix) 40 mg IV Q12 [facility] Glucose (Insta-Glucose) 15 gm PO PRN PRN PRN Reason: Hypoglycemia Heparin Sodium (Porcine) (Heparin) 5,000 unit SQ Q12 [facility] Heparin Sodium (Porcine) (Heparin Flush) 2 ml IV Q12 [facility] Magnesium Sulfate (Magnesium Sulfate) 2 gm in 50 mls @ 50 mls/hr IV UD PRN PRN Reason: MG = or < 1.7 Sodium Chloride (Sodium Chloride 0.9%) 250 mls @ 20 mls/hr IV .[id number] [facility] Last Admin: 11/08/17 11:48 Dose: Not Given Acetaminophen (Ofirmev) 1,000 mg in 100 mls @ 200 mls/hr IV Q6HP PRN PRN Reason: PAIN/FEVER > 101 Piperacillin Sod/Tazobactam (Sod 2.25 gm/ Dextrose) 50 mls @ 100 mls/hr IV Q8H [facility] Last Admin: 11/08/17 13:53 Dose: 100 mls/hr Insulin Glargine (Lantus) 15 unit SQ HS [facility] Insulin Human Lispro (Humalog) 0 unit SQ [facility] PRN Reason: Protocol Last Admin: 11/08/17 11:46 Dose: Not Given Midodrine (Midodrine Hcl) 5 mg PO Q6HP PRN PRN Reason: Hypotension Ondansetron HCl (Zofran) 4 mg IV Q4-6HP PRN PRN Reason: Nausea And Vomiting Senna/Docusate Sodium (Senna Plus Tablet) 1 tab PO HS [facility] Sevelamer Carbonate (Renvela) 800 mg PO TIDCC [facility] Last Admin: 11/08/17 12:32 Dose: 800 mg Sodium Chloride (Saline Flush) 10 ml IV UD PRN PRN Reason: FLUSH Sodium Chloride (Saline Flush) 10 ml IV Q12 [facility] Vancomycin HCl (Vancomycin Per Pharmacy) 1 order IV UD [facility] Medical - PN: A/P - Time Spent With Patient Total time spent is greater than 50% in coordination of care (as documented) at patient's floor/unit and/or counseling patient: 15 - 24 minutes - Narrative A/P Narrative: A/P * Acute Kidney Injury-managed by nephrology * hypotension- clinically improved now off pressors * Pulmonary Hypertension * Pneumonia, Health care associated-on antibiotics day 5 x 7 * Altered Mental status- fully resolved * Diabetes Mellitus type 2-on basal prandial insulin * Coronary Artery Disease * hyperphosphatemia secondary to renal failure * DVT prophylaxis on heparin Plan * continue antibiotics * nephrology following hemodialysis and renal function * Full code * Carb consistent diet renal diet Medical - PN: Qual - VTE Deep Vein Thrombosis/Pulmonary Embolism Present on Admission: No
[2017-11-08] MEDS ORDERED: SENNOSIDES/DOCUSATE SODIUM 1 TAB TABLET PO SCH (21:00)
[2017-11-08] MEDS ORDERED: INSULIN GLARGINE, HUMAN 1 UNIT/0.01 ML SQ SCH (21:00)
[2017-11-08] MEDS ORDERED: PHENobarb/HYOSCY/ATROPINE/SCOP 1 DOSE BOTTLE PO PRN (21:15)
[2017-11-08] MEDS: PANTOPRAZOLE 40 MG TABLET PO SCH (21:25)
[2017-11-08] MEDS ORDERED: PHENobarb/HYOSCY/ATROPINE/SCOP 1 DOSE BOTTLE PO ONE (21:53)
[2017-11-09] MEDS: 0.9 % SODIUM CHLORIDE 250 ML IV SCH ×3 (00:34→22:47)
[2017-11-09 05:07] LABS: ALT/SGPT 22 U/l (0-40); Albumin 2.5 gm/dL (3.2-5.2); Albumin/Globulin Ratio 0.7 (1.0-2.3); Alkaline Phosphatase 112 U/L (39-117); Bilirubin,Direct 0.2 mg/dL (0.0-0.3); Blood Urea Nitrogen 47 mg/dl (8-23); Gamma Glutamyl Transpeptidase 36 U/L (8-61); Mean Cell Volume 85.1 fL (80.0-100.0); Mean Corpuscular HGB Conc 32.7 g/dL (31.0-36.0); Mean Corpuscular Hemoglobin 27.8 pg (26.0-34.0); Platelet Count 222 K/mcL (140-440); RBC 4.44 M/mcL (4.50-5.90); Red Cell Distribution Width 15.6 % (11.5-14.5); Uric Acid 4.9 mg/dL (2.5-8.0)
[2017-11-09] MEDS: PIPERACILLIN SODIUM/TAZOBACTAM 2.25 GM in DEXTROSE 5% IN WATER 50 ML IV SCH ×3 (05:42→22:07)
--- NOTE | 2017-11-09 06:43 | Nephrology Progress Note ---
Subjective Patient information: Note initiated : 11/09/17 at 6:41 am Brandon Austin is an [id number] male with coronary artery disease, diabetes mellitus type 2, hypertension, hyperlipidemia admitted on 11/02/17 for recent onset anorexia, dyspnea and weakness for one month. Chief Complaint: Weakness. Principal diagnosis: Acute renal failure, fluid overload Interval history: Off IV pressors. Good urine output. Pertinent ROS: Improved appetite. Less edema. No shortness of breath. No chest pain. Weakness. Objective - Vital Signs Vital signs: Vital Signs Temp Pulse Resp BP BP Pulse Ox 11/09/17 04:01 98.2 F 16 122/67 98 11/09/17 00:01 98.4 F 16 113/92 99 11/08/17 21:00 97 11/08/17 20:01 98 11/08/17 20:00 97.6 F 97 H 18 114/69 114/69 99 11/08/17 19:41 98.3 F 18 127/72 100 11/08/17 16:10 108/78 11/08/17 14:08 97.3 F 16 123/73 95 11/08/17 12:01 123/73 11/08/17 11:23 97.4 F 18 104/88 96 11/08/17 10:40 108/69 11/08/17 10:00 18 108/69 11/08/17 08:03 113/80 11/08/17 07:02 95 11/08/17 07:01 97/65 94 11/08/17 07:00 95 11/08/17 06:58 16 Intake and Output 11/08/17 11/09/17 11/09/17 21:59 05:59 13:59 Intake Total 490 / 490 50 / 50 Output Total 1220 / 1220 1075 / 1075 Balance -730 / -730 -1025 / -1025 Intake: IV 50 / 50 50 / 50 Zosyn 2.25 gm In Dextrose 5% in 50 / 50 50 / 50 Water 50 ml @ 100 mls/hr IV Q8H [facility] Rx#:[id number] Oral 440 / 440 Output: Urine Catheter Amount 1220 / 1220 1075 / 1075 Other: Meal Dinner Percent of Meal Consumed 100% Feeding Ability Assist with Tray Set Up Weight 185 lb 11.2 oz Intake & Output: Intake & Output 11/08/17 11/09/17 11/09/17 21:59 05:59 13:59 Intake Total 490 / 490 50 / 50 Output Total 1220 / 1220 1075 / 1075 Balance -730 / -730 -1025 / -1025 Weight 185 lb 11.2 oz Intake: IV 50 / 50 50 / 50 Zosyn 2.25 gm In Dextrose 5% in 50 / 50 50 / 50 Water 50 ml @ 100 mls/hr IV Q8H [facility] Rx#:[id number] Oral 440 / 440 Output: Urine Catheter Amount 1220 / 1220 1075 / 1075 Other: Meal Dinner Percent of Meal Consumed 100% Feeding Ability Assist with Tray Set Up - General Appearance General appearance: appears started age, fatigue EENT: mucous membranes moist Neck: supple Respiratory: clear Cardiology: edema Gastrointestinal: no tenderness Integumentary: no rash, warm and dry Neurologic: no focal deficit, alert and oriented x3 Musculoskeletal: no erythema, no cyanosis Psychiatric: mood/affect appropriate, cooperative - Lab 11/09/17 04:00 11/09/17 04:00 Most recent lab results Calcium 7.8 mg/dl (8.6-10.4) L 11/09/17 04:00 Phosphorus 4.2 mg/dL (2.7-4.5) 11/09/17 04:00 Magnesium 2.0 mg/dL (1.6-2.5) 11/09/17 04:00 Assessment and Plan (1) Acute kidney failure with tubular necrosis Work up: CXR on 11/04/17: Bilateral parenchymal infiltrates and pleural fluid collections. No significant interval change since 11/03/2017 Echo on 11/03/17: LVEF 50-70%, moderate pulmonary hypertension and left pleural effusion. US Renal on 11/03/17: Abnormal resistive index bilaterally. No evidence for renal artery stenosis. US Renal on 11/02/17: No hydronephrosis. Mildly echogenic renal cortex bilaterally consistent with medical renal disease. Urinalysis on 11/02/17: Yellow, hazy, pH 5.0, SG 1.017, protein 30, occult blood negative. Random urine protein / creatinine ratio 11/02/17: Pending. Progress: Hemodialysis on 11/03, 11/04 and 11/07. Urine output 2715 ml reported in the past 24 hours. Creatinine increased from 3.5 to 3.8 in the past 24 hours. Discussion: Etiology likely recent prescription medication change, Advil use and acute illness. Plan: Monitor dialysis need with renal panel and urine output. No hemodialysis today. Avoid IV contrast and nephrotoxic medications. Status: Acute Priority: High (2) Anasarca Improved with good urine output and ultrafiltration with dialysis. Furosemide 40 mg IV Q12 started on 11/08/17. Status: Acute Priority: Medium
[2017-11-09 06:50] LABS: Anisocytosis 1+ (NONE SEEN); Basophils % (Manual) 1 % (0-2); Eosinophils % (Manual) 4 % (0-7); Lymphocytes % 8 % (15-49); Monocytes % (Manual) 9 % (1-12); Platelet Estimate NORMAL (NORMAL); RBC Morphology ABNORM (NORMAL); Segmented Neutrophils % 76 % (38-78)
[2017-11-09] MEDS: INSULIN LISPRO 1 UNIT/0.01 ML UNIT SQ SCH ×4 (08:26→22:02)
[2017-11-09] MEDS: PANTOPRAZOLE 40 MG TABLET PO SCH (08:27)
[2017-11-09] MEDS: HEPARIN 5,000 UNIT/ML VIAL SQ SCH ×2 (08:30→22:02)
[2017-11-09] MEDS: DOCUSATE SODIUM 100 MG CAPSULE PO SCH ×2 (08:31→22:02)
[2017-11-09] MEDS: FUROSEMIDE 40 MG/4 ML VIAL IV SCH ×2 (08:31→22:02)
[2017-11-09] MEDS: SEVELAMER 800 MG TABLET PO SCH ×3 (08:31→17:08)
[2017-11-09] MEDS: 0.9 % SODIUM CHLORIDE 10 ML SYRINGE IV SCH ×2 (08:32→22:07)
[2017-11-09] MEDS ORDERED: 0.9 % SODIUM CHLORIDE 10 ML SYRINGE IV PRN (09:55)
[2017-11-09] MEDS ORDERED: ACETAMINOPHEN 325 MG TABLET PO PRN (09:55)
[2017-11-09] MEDS ORDERED: MIDODRINE 5 MG TABLET PO PRN (09:55)
[2017-11-09] MEDS ORDERED: VANCOMYCIN PER PHARMACY IV SCH (09:55)
[2017-11-09] MEDS ORDERED: PHENobarb/HYOSCY/ATROPINE/SCOP 1 DOSE BOTTLE PO PRN (09:55)
[2017-11-09] MEDS ORDERED: MAGNESIUM SULFATE 2 GM/50 ML BAG IV PRN (09:55)
[2017-11-09] MEDS ORDERED: DEXTROSE 50% 50 ML VIAL IV PRN (09:55)
[2017-11-09] MEDS ORDERED: ONDANSETRON 4 MG/2 ML VIAL IV PRN (09:55)
[2017-11-09] MEDS ORDERED: ACETAMINOPHEN 1,000 MG/100 ML BOTTLE IV PRN (09:55)
[2017-11-09] MEDS ORDERED: DEXTROSE 31 GM ORAL.SUSP PO PRN (09:55)
--- NOTE | 2017-11-09 10:04 | Internal Med Progress Note ---
Medical - PN: Subj Patient information: Note initiated : 11/09/17 at 10:00 am Service Date, if different from initiated Date: [] Patient: Brandon Austin 82 y/o M admitted on 11/02/17 for Pneumonia/Acute Renal Failure. Chief Complaint: [] Interval history: The patient is an 82-year-old gentleman who lives with his , Lorie, at [facility] and has been in his baseline state of health with history of diabetes, hypertension. Over the last few of weeks, he has noticed increasing weight gain to the amount of 60 pounds. Patient has had difficulty voiding and emptying bladder. He, however, denies taking new medications. He had upper respiratory symptoms roughly 2 weeks ago and since then he has had progressive difficulty emptying. he has been trying to alleviate his symptoms with [id number] medications. He denies abdominal pain, bloody urine, bloody stool. He does have associated shortness of breath which has progressed from dyspnea on maximal exertion to dyspnea at rest. He is unable to perform activities of daily living. With increasing concerns, the patient was evaluated at [facility] ER today. Initial workup was significant for bibasilar infiltrates with parapneumonic effusion on chest imaging, along with acute renal failure with a creatinine of 4.3 and potassium 5.4 and a pH of 7.33 on basic panel. Due to lack of availability of beds at [facility], Hospitalist Service at [facility] was consulted. I received the phone sign-out from Dr. Senior, [facility] ED physician, and subsequently accepted the patient based on the above data. The patient on arrival appears stable. He was able to answer most of the questions. He is short of breath, was able to talk in full sentences. He endorses to history as above. He is , but his was not available for further evaluation of history. 11/03 patient seen and examined, overnight events noted, patient was hypotensive overnight, and was started on levophed drip, no icu bed available, hence was on the tele status with the drip. he was moved to icu today, as soon as bed opened, He has had poor urine output, and did not respond to lasix, nephrology following , plan to get temporary cath placed and dialysis to be initiated Echo reviewed, normal lvef, moderate pulm HTN noted pt on levophed, picc to be placed for pressor support On iv antibiotics rocepin, levofloxacin,, d/c same, start on vanco and zosyn CXR shows ricardo infiltrates, and pleural effusion. Renal USG shows abnormal restive indices, but no significant renal artery stenosis 11/04 Patient seen and examined, no acute overnight events, sitting comfortably in the bed. Blood pressure stable still on Levophed drip. The patient responded well to dialysis last night, this morning the patient has some urine output and response to Lasix. He will undergo dialysis again today. Nephrology is following. Like to wean off Levophed as tolerated, chest x-ray shows bilateral infiltrates and bilateral effusions patient is on broad- spectrum antibiotics. 11/05 Patient seen and examined, sitting comfortably in the chair no acute overnight events, still on pressors Levophed is running at 2 mics. The patient denies any acute complaints at this time. He has been making urine since last night and seems to be responding well to Lasix creatinine is trending down. Nephrology following. 11/06 Patient seen examined, no acute overnight events, patient still on pressors pressure was bumped up yesterday and is still at around 5-7 mics. The patient otherwise has no acute complaints. Patient's urine output is good, -1370 over 24 hours yesterday and is -900 today Patient's creatinine bumped up slightly Nephrology does not plan for dialysis today. Chest x-ray shows stable effusions 11/07=- patient seen in room. Multiple family members. Interest family concerns. Patient currently on room air. On 3 mics Levophed. Pressors managed by nephrology. Improving urine output but blood-tinged. No concerns expressed by nursing staff. No telemetry events. 11/08- Patient off pressors. No overnight event. Improving urine output. Hemodialysis ongoing per nephrology. No fever chills or concerns per staff. Family at bedside. Discussed treatment plan and clinical improvement. Transfer to telemetry. 11/09- patient doing well. Family at bedside including daughter and . No overnight events. Feels at baseline. No active concerns. Foleys draining clear urine. No telemetry events currently in sinus. Hemodynamics stable currently off vasopressors. No concerns expressed by nursing staff patient and family. Transfer to medical floor. Case discussed with Dr. Oquendo who nephrology and recommends continuing of hemodialysis and the inpatient management until renal function improves. - Constitutional Vitals: Vital Signs Temp Pulse Resp BP Pulse Ox 98.2 F 97 H 16 122/67 98 11/09/17 04:01 11/08/17 20:00 11/09/17 04:01 11/09/17 04:01 11/09/17 04:01 Period Temp Pulse Resp BP Sys/Kelly Pulse Ox Last 24 Hr 97.3 F-98.4 F 97 16-18 104-127/67-92 95-100 Intake and Output 11/08/17 11/09/17 11/09/17 21:59 05:59 13:59 Intake Total 490 / 490 50 / 50 50 / 50 Output Total 1220 / 1220 1075 / 1075 Balance -730 / -730 -1025 / -1025 50 / 50 Weight 185 lb 11.2 oz Intake & Output: Intake & Output 11/08/17 11/09/17 11/09/17 21:59 05:59 13:59 Intake Total 490 / 490 50 / 50 50 / 50 Output Total 1220 / 1220 1075 / 1075 Balance -730 / -730 -1025 / -1025 50 / 50 Weight 185 lb 11.2 oz Intake: IV 50 / 50 50 / 50 50 / 50 Zosyn 2.25 gm In Dextrose 5% in 50 / 50 50 / 50 50 / 50 Water 50 ml @ 100 mls/hr IV Q8H [facility] Rx#:[id number] Oral 440 / 440 Output: Urine Catheter Amount 1220 / 1220 1075 / 1075 Other: Meal Dinner Percent of Meal Consumed 100% Feeding Ability Assist with Tray Set Up Medical - PN: Obj Da - Labs CBC & Chem 7: 11/09/17 04:00 11/09/17 04:00 Labs: Abnormal Lab Results 11/09/17 11/09/17 11/08/17 04:00 04:00 04:00 RBC 4.44 L Hgb 12.4 L Hct 37.8 L RDW 15.6 H Lymphocytes % 8 L Eosinophils % (Manual) Myelocytes % RBC Morphology Abnorm A Anisocytosis 1+ A BUN 47 H 43 H Creatinine 3.8 H 3.5 H Glucose 66 L 62 L Calcium 7.8 L 8.0 L Phosphorus Alkaline Phosphatase Albumin 2.5 L 2.7 L Albumin/Globulin Ratio 0.7 L 0.8 L 11/08/17 11/07/17 11/07/17 04:00 03:42 03:42 RBC Hgb 12.8 L 13.4 L Hct 39.0 L RDW 15.2 H 15.4 H Lymphocytes % 9 L 9 L Eosinophils % (Manual) 9 H Myelocytes % 1 H RBC Morphology Anisocytosis BUN 71 H Creatinine 4.8 H Glucose Calcium 8.1 L Phosphorus 5.4 H Alkaline Phosphatase 127 H Albumin 2.8 L Albumin/Globulin Ratio 0.8 L Meds: Medications Acetaminophen (Tylenol) 650 mg PO Q4-6HP PRN PRN Reason: PAIN/FEVER > 101 Belladonna/Phenobarbital (Gi Cocktail) 1 dose PO Q4HP PRN PRN Reason: Dyspepsia Dextrose (Dextrose 50%) 0 ml IV UD PRN PRN Reason: Hypoglycemia Diagnostic Test (Pha) (Accu-Chek) 1 each FS ACHS [facility] Docusate Sodium (Colace) 100 mg PO BID [facility] Furosemide (Lasix) 40 mg IV Q12 [facility] Glucose (Insta-Glucose) 15 gm PO PRN PRN PRN Reason: Hypoglycemia Heparin Sodium (Porcine) (Heparin) 5,000 unit SQ Q12 [facility] Heparin Sodium (Porcine) (Heparin Flush) 2 ml IV Q12 [facility] Magnesium Sulfate (Magnesium Sulfate) 2 gm in 50 mls @ 50 mls/hr IV UD PRN PRN Reason: MG = or < 1.7 Sodium Chloride (Sodium Chloride 0.9%) 250 mls @ 20 mls/hr IV .[id number] [facility] Last Admin: 11/09/17 09:57 Dose: Not Given Acetaminophen (Ofirmev) 1,000 mg in 100 mls @ 200 mls/hr IV Q6HP PRN PRN Reason: PAIN/FEVER > 101 Piperacillin Sod/Tazobactam (Sod 2.25 gm/ Dextrose) 50 mls @ 100 mls/hr IV Q8H [facility] Insulin Glargine (Lantus) 15 unit SQ HS [facility] Insulin Human Lispro (Humalog) 0 unit SQ ACHS [facility] PRN Reason: Protocol Midodrine (Midodrine Hcl) 5 mg PO Q6HP PRN PRN Reason: Hypotension Ondansetron HCl (Zofran) 4 mg IV Q4-6HP PRN PRN Reason: Nausea And Vomiting Pantoprazole Sodium (Protonix) 40 mg PO QAMAC [facility] Senna/Docusate Sodium (Senna Plus Tablet) 1 tab PO HS [facility] Sevelamer Carbonate (Renvela) 800 mg PO TIDCC [facility] Sodium Chloride (Saline Flush) 10 ml IV UD PRN PRN Reason: FLUSH Sodium Chloride (Saline Flush) 10 ml IV Q12 [facility] Vancomycin HCl (Vancomycin Per Pharmacy) 1 order IV UD [facility] Medical - PN: A/P - Time Spent With Patient Total time spent is greater than 50% in coordination of care (as documented) at patient's floor/unit and/or counseling patient: 15 - 24 minutes - Narrative A/P Narrative: A/P * Acute Kidney Injury-managed by nephrology. hemodialysis on hold.patient stable. Transfer to medical floor * hypotension- clinically improved now off pressors * Pulmonary Hypertension * Pneumonia, Health care associated-on antibiotics day 6 x 7. * Altered Mental status- fully resolved * Diabetes Mellitus type 2-on basal prandial insulin * Coronary Artery Disease * hyperphosphatemia secondary to renal failure * DVT prophylaxis on heparin Plan * transfer to medical floor * renal issue management per nephrology * Full code Medical - PN: Qual - VTE Deep Vein Thrombosis/Pulmonary Embolism Present on Admission: No
[2017-11-09] MEDS ORDERED: SENNOSIDES/DOCUSATE SODIUM 1 TAB TABLET PO SCH (21:00)
[2017-11-09] MEDS ORDERED: INSULIN GLARGINE, HUMAN 1 UNIT/0.01 ML SQ SCH (21:00)
[2017-11-10] MEDS: PIPERACILLIN SODIUM/TAZOBACTAM 2.25 GM in DEXTROSE 5% IN WATER 50 ML IV SCH ×3 (05:28→22:52)
[2017-11-10 05:57] LABS: Mean Cell Volume 84.7 fL (80.0-100.0); Mean Corpuscular HGB Conc 33.7 g/dL (31.0-36.0); Mean Corpuscular Hemoglobin 28.5 pg (26.0-34.0); Platelet Count 207 K/mcL (140-440); RBC 4.14 M/mcL (4.50-5.90); Red Cell Distribution Width 15.1 % (11.5-14.5)
[2017-11-10 06:17] LABS: ALT/SGPT 20 U/l (0-40); Albumin 2.5 gm/dL (3.2-5.2); Albumin/Globulin Ratio 0.7 (1.0-2.3); Alkaline Phosphatase 107 U/L (39-117); Bilirubin,Direct 0.2 mg/dL (0.0-0.3); Blood Urea Nitrogen 54 mg/dl (8-23); Gamma Glutamyl Transpeptidase 36 U/L (8-61)
[2017-11-10] MEDS: INSULIN LISPRO 1 UNIT/0.01 ML UNIT SQ SCH ×4 (07:09→21:08)
--- NOTE | 2017-11-10 07:22 | Nephrology Progress Note ---
Subjective Patient information: Note initiated : 11/10/17 at 7:21 am Brandon Austin is an 65-[id number] male with coronary artery disease, diabetes mellitus type 2, hypertension, hyperlipidemia admitted on 11/02/17 for recent onset anorexia, dyspnea and weakness for one month. Chief Complaint: Weakness. Principal diagnosis: Acute renal failure, fluid overload Interval history: Transferred out of ICU. Pertinent ROS: Appetite good. Weakness improving. Less leg edema. Still has Sagastume. No confusion. Objective - Vital Signs Vital signs: Vital Signs Temp Pulse Resp BP BP Pulse Ox 11/10/17 04:00 97.8 F 80 16 108/77 96 11/10/17 00:00 97.8 F 80 16 130/84 95 11/09/17 20:00 97.7 F 79 16 124/83 95 11/09/17 16:00 97.1 F 76 18 108/65 96 11/09/17 12:00 96.9 F L 75 18 106/68 96 11/09/17 10:30 78 18 96 11/09/17 08:00 96.9 F L 75 18 106/68 96 11/09/17 07:45 98.0 F 71 16 142/71 97 Intake and Output 11/09/17 11/10/17 11/10/17 21:59 05:59 13:59 Intake Total 50 / 50 290 / 290 Output Total 1650 / 1650 Balance 50 / 50 -1360 / -1360 Intake: IV 50 / 50 50 / 50 Zosyn 2.25 gm In Dextrose 5% in 50 / 50 50 / 50 Water 50 ml @ 100 mls/hr IV Q8H [facility] Rx#:[id number] Oral 240 / 240 Output: Urine Catheter Amount 1650 / 1650 Other: # Bowel Movements 1 Weight 187 lb Intake & Output: Intake & Output 11/09/17 11/10/17 11/10/17 21:59 05:59 13:59 Intake Total 50 / 50 290 / 290 Output Total 1650 / 1650 Balance 50 / 50 -1360 / -1360 Weight 187 lb Intake: IV 50 / 50 50 / 50 Zosyn 2.25 gm In Dextrose 5% in 50 / 50 50 / 50 Water 50 ml @ 100 mls/hr IV Q8H [facility] Rx#:[id number] Oral 240 / 240 Output: Urine Catheter Amount 1650 / 1650 Other: # Bowel Movements 1 - General Appearance General appearance: appears started age, fatigue EENT: mucous membranes moist Neck: supple Respiratory: clear Cardiology: edema Gastrointestinal: no tenderness Integumentary: warm and dry Neurologic: no focal deficit, alert and oriented x3 Musculoskeletal: no erythema, no cyanosis Psychiatric: mood/affect appropriate, cooperative - Lab 11/10/17 05:00 11/10/17 05:00 Most recent lab results Calcium 7.9 mg/dl (8.6-10.4) L 11/10/17 05:00 Phosphorus 4.1 mg/dL (2.7-4.5) 11/10/17 05:00 Magnesium 1.9 mg/dL (1.6-2.5) 11/10/17 05:00 Assessment and Plan (1) Acute kidney failure with tubular necrosis Work up: CXR on 11/04/17: Bilateral parenchymal infiltrates and pleural fluid collections. No significant interval change since 11/03/2017 Echo on 11/03/17: LVEF 50-70%, moderate pulmonary hypertension and left pleural effusion. US Renal on 11/03/17: Abnormal resistive index bilaterally. No evidence for renal artery stenosis. US Renal on 11/02/17: No hydronephrosis. Mildly echogenic renal cortex bilaterally consistent with medical renal disease. Urinalysis on 11/02/17: Yellow, hazy, pH 5.0, SG 1.017, protein 30, occult blood negative. Random urine protein / creatinine ratio 11/02/17: Pending. Progress: Hemodialysis on 11/03, 11/04 and 11/07. Urine output 1650 ml reported in the past 24 hours. Creatinine increased from 3.8 to 34.0 in the past 24 hours. Discussion: Etiology likely recent prescription medication change, Advil use and acute illness. Plan: Monitor dialysis need with renal panel and urine output. No hemodialysis today. Avoid IV contrast and nephrotoxic medications. Discharge planning: He would need tunneled dialysis catheter (at [facility]) and outpatient hemodialysis arrangement (at [facility]) with acute kidney injury diagnosis at this point. Anticipate improvement of acute kidney injury and discharge without dialysis in 3-5 days. Status: Acute Priority: High (2) Anasarca Improved with good urine output and ultrafiltration with dialysis. Furosemide 40 mg IV Q12 started on 3/20/18. KCl 20 mEq PO BID started for decreasing potassium trend with diuresis. Status: Acute Priority: Medium
[2017-11-10] MEDS ORDERED: PANTOPRAZOLE 40 MG TABLET PO SCH (07:30)
[2017-11-10] MEDS ORDERED: POTASSIUM CHLORIDE 20 MEQ TABLET PO SCH ×2 (08:00→17:30)
[2017-11-10 08:27] LABS: Anisocytosis FEW (NONE SEEN); Eosinophils % (Manual) 7 % (0-7); Lymphocytes % 14 % (15-49); Monocytes % (Manual) 9 % (1-12); Platelet Estimate NORMAL (NORMAL); RBC Morphology ABNORM (NORMAL); Segmented Neutrophils % 70 % (38-78)
[2017-11-10] MEDS: HEPARIN 5,000 UNIT/ML VIAL SQ SCH (08:50)
[2017-11-10] MEDS: DOCUSATE SODIUM 100 MG CAPSULE PO SCH ×2 (08:50→21:05)
[2017-11-10] MEDS: FUROSEMIDE 40 MG/4 ML VIAL IV SCH (08:50)
[2017-11-10] MEDS: 0.9 % SODIUM CHLORIDE 10 ML SYRINGE IV SCH ×2 (08:51→21:12)
[2017-11-10] MEDS: SEVELAMER 800 MG TABLET PO SCH ×3 (08:51→18:27)
--- NOTE | 2017-11-10 11:12 | Internal Med Progress Note ---
Medical - PN: Subj Patient information: Note initiated : 11/10/17 at 11:10 am Service Date, if different from initiated Date: [] Patient: Brandon Austin 82 y/o M admitted on 11/02/17 for Pneumonia/Acute Renal Failure. Chief Complaint: [] Interval history: The patient is an 82-year-old gentleman who lives with his , Lorie, at [facility] and has been in his baseline state of health with history of diabetes, hypertension. Over the last few of weeks, he has noticed increasing weight gain to the amount of 60 pounds. Patient has had difficulty voiding and emptying bladder. He, however, denies taking new medications. He had upper respiratory symptoms roughly 2 weeks ago and since then he has had progressive difficulty emptying. he has been trying to alleviate his symptoms with [id number] medications. He denies abdominal pain, bloody urine, bloody stool. He does have associated shortness of breath which has progressed from dyspnea on maximal exertion to dyspnea at rest. He is unable to perform activities of daily living. With increasing concerns, the patient was evaluated at [facility] ER today. Initial workup was significant for bibasilar infiltrates with parapneumonic effusion on chest imaging, along with acute renal failure with a creatinine of 4.3 and potassium 5.4 and a pH of 7.33 on basic panel. Due to lack of availability of beds at [facility], Hospitalist Service at [facility] was consulted. I received the phone sign-out from Dr. Senior, [facility] ED physician, and subsequently accepted the patient based on the above data. The patient on arrival appears stable. He was able to answer most of the questions. He is short of breath, was able to talk in full sentences. He endorses to history as above. He is , but his was not available for further evaluation of history. 11/03 patient seen and examined, overnight events noted, patient was hypotensive overnight, and was started on levophed drip, no icu bed available, hence was on the tele status with the drip. he was moved to icu today, as soon as bed opened, He has had poor urine output, and did not respond to lasix, nephrology following , plan to get temporary cath placed and dialysis to be initiated Echo reviewed, normal lvef, moderate pulm HTN noted pt on levophed, picc to be placed for pressor support On iv antibiotics rocepin, levofloxacin,, d/c same, start on vanco and zosyn CXR shows ricardo infiltrates, and pleural effusion. Renal USG shows abnormal restive indices, but no significant renal artery stenosis 11/04 Patient seen and examined, no acute overnight events, sitting comfortably in the bed. Blood pressure stable still on Levophed drip. The patient responded well to dialysis last night, this morning the patient has some urine output and response to Lasix. He will undergo dialysis again today. Nephrology is following. Like to wean off Levophed as tolerated, chest x-ray shows bilateral infiltrates and bilateral effusions patient is on broad- spectrum antibiotics. 11/05 Patient seen and examined, sitting comfortably in the chair no acute overnight events, still on pressors Levophed is running at 2 mics. The patient denies any acute complaints at this time. He has been making urine since last night and seems to be responding well to Lasix creatinine is trending down. Nephrology following. 11/06 Patient seen examined, no acute overnight events, patient still on pressors pressure was bumped up yesterday and is still at around 5-7 mics. The patient otherwise has no acute complaints. Patient's urine output is good, -1370 over 24 hours yesterday and is -900 today Patient's creatinine bumped up slightly Nephrology does not plan for dialysis today. Chest x-ray shows stable effusions 11/07=- patient seen in room. Multiple family members. Interest family concerns. Patient currently on room air. On 3 mics Levophed. Pressors managed by nephrology. Improving urine output but blood-tinged. No concerns expressed by nursing staff. No telemetry events. 11/08- Patient off pressors. No overnight event. Improving urine output. Hemodialysis ongoing per nephrology. No fever chills or concerns per staff. Family at bedside. Discussed treatment plan and clinical improvement. Transfer to telemetry. 11/09- patient doing well. Family at bedside including daughter and . No overnight events. Feels at baseline. No active concerns. Foleys draining clear urine. No telemetry events currently in sinus. Hemodynamics stable currently off vasopressors. No concerns expressed by nursing staff patient and family. Transfer to medical floor. Case discussed with Dr. Oquendo who nephrology and recommends continuing of hemodialysis and the inpatient management until renal function improves. November 10- ongoing hemodialysis per nephrology. Patient stable. No overnight events. No concerns per staff. - Constitutional Vitals: Vital Signs Temp Pulse Resp BP Pulse Ox 97.9 F 78 16 108/73 95 11/10/17 07:36 11/10/17 07:17 11/10/17 07:36 11/10/17 07:36 11/10/17 07:36 Period Temp Pulse Resp BP Sys/Kelly Pulse Ox Last 24 Hr 96.9 F-97.9 F 75-80 16-18 106-130/65-84 95-96 Intake and Output 11/09/17 11/10/17 11/10/17 21:59 05:59 13:59 Intake Total 50 / 50 290 / 290 Output Total 1650 / 1650 Balance 50 / 50 -1360 / -1360 Weight 187 lb Intake & Output: Intake & Output 11/09/17 11/10/17 11/10/17 21:59 05:59 13:59 Intake Total 50 / 50 290 / 290 Output Total 1650 / 1650 Balance 50 / 50 -1360 / -1360 Weight 187 lb Intake: IV 50 / 50 50 / 50 Zosyn 2.25 gm In Dextrose 5% in 50 / 50 50 / 50 Water 50 ml @ 100 mls/hr IV Q8H [facility]END[facility] Rx#:[id number] Oral 240 / 240 Output: Urine Catheter Amount 1650 / 1650 Other: Stool Size Large Stool Color Black Blood Tinged Stool Consistency Watery # Bowel Movements 1 1 General appearance: no acute distress Medical - PN: Obj Da - Labs CBC & Chem 7: 11/10/17 05:00 11/10/17 05:00 Labs: Abnormal Lab Results 11/10/17 11/10/17 11/09/17 05:00 05:00 04:00 RBC 4.14 L Hgb 11.8 L Hct 35.0 L RDW 15.1 H Lymphocytes % 14 L Eosinophils % (Manual) RBC Morphology Abnorm A Anisocytosis Few A BUN 54 H 47 H Creatinine 4.0 H 3.8 H Glucose 66 L Calcium 7.9 L 7.8 L Albumin 2.5 L 2.5 L Albumin/Globulin Ratio 0.7 L 0.7 L 11/09/17 11/08/17 11/08/17 04:00 04:00 04:00 RBC 4.44 L Hgb 12.4 L 12.8 L Hct 37.8 L 39.0 L RDW 15.6 H 15.2 H Lymphocytes % 8 L 9 L Eosinophils % (Manual) 9 H RBC Morphology Abnorm A Anisocytosis 1+ A BUN 43 H Creatinine 3.5 H Glucose 62 L Calcium 8.0 L Albumin 2.7 L Albumin/Globulin Ratio 0.8 L Meds: Medications Acetaminophen (Tylenol) 650 mg PO Q4-6HP PRN PRN Reason: PAIN/FEVER > 101 Belladonna/Phenobarbital (Gi Cocktail) 1 dose PO Q4HP PRN PRN Reason: Dyspepsia Dextrose (Dextrose 50%) 0 ml IV UD PRN PRN Reason: Hypoglycemia Diagnostic Test (Pha) (Accu-Chek) 1 each FS [facility]END[facility] Last Admin: 11/10/17 07:09 Dose: 1 each Docusate Sodium (Colace) 100 mg PO BID [facility] Last Admin: 11/10/17 08:50 Dose: 100 mg Furosemide (Lasix) 40 mg IV Q12 [facility] Last Admin: 11/10/17 08:50 Dose: 40 mg Glucose (Insta-Glucose) 15 gm PO PRN PRN PRN Reason: Hypoglycemia Heparin Sodium (Porcine) (Heparin) 5,000 unit SQ Q12 [facility] Last Admin: 11/10/17 08:50 Dose: 5,000 unit Heparin Sodium (Porcine) (Heparin Flush) 2 ml IV Q12 [facility] Last Admin: 11/10/17 08:51 Dose: 2 ml Magnesium Sulfate (Magnesium Sulfate) 2 gm in 50 mls @ 50 mls/hr IV UD PRN PRN Reason: MG = or < 1.7 Piperacillin Sod/Tazobactam (Sod 2.25 gm/ Dextrose) 50 mls @ 100 mls/hr IV Q8H [facility] Last Admin: 11/10/17 05:28 Dose: 100 mls/hr Insulin Glargine (Lantus) 15 unit SQ HS [facility] Last Admin: 11/09/17 22:07 Dose: 15 unit Insulin Human Lispro (Humalog) 0 unit SQ [facility] PRN Reason: Protocol Last Admin: 11/10/17 07:09 Dose: Not Given Midodrine (Midodrine Hcl) 5 mg PO Q6HP PRN PRN Reason: Hypotension Ondansetron HCl (Zofran) 4 mg IV Q4-6HP PRN PRN Reason: Nausea And Vomiting Pantoprazole Sodium (Protonix) 40 mg PO QAMAC [facility] Last Admin: 11/10/17 07:09 Dose: 40 mg Potassium Chloride (Kdur) 20 meq PO BIDCC [facility] Last Admin: 11/10/17 08:50 Dose: 20 meq Senna/Docusate Sodium (Senna Plus Tablet) 1 tab PO HS [facility] Last Admin: 11/09/17 22:07 Dose: Not Given Sevelamer Carbonate (Renvela) 800 mg PO TIDCC [facility]END[facility] Last Admin: 11/10/17 08:51 Dose: 800 mg Sodium Chloride (Saline Flush) 10 ml IV UD PRN PRN Reason: FLUSH Sodium Chloride (Saline Flush) 10 ml IV Q12 [facility] Last Admin: 11/10/17 08:51 Dose: 10 ml Vancomycin HCl (Vancomycin Per Pharmacy) 1 order [place] [facility] [place] [facility] [place] - PN: A/P - Time Spent With Patient Total time spent is greater than 50% in coordination of care (as documented) at patient's floor/unit and/or counseling patient: 15 - 24 minutes - Narrative A/P Narrative: A/P * Acute Kidney Injury-managed by nephrology. * HCAP-Completed antibiotic course. DC antibiotics * Altered Mental status- fully resolved * Diabetes Mellitus type 2-on basal prandial insulin * Coronary Artery Disease * hyperphosphatemia secondary to renal failure * hypotension- clinically improved now off pressor * Pulmonary Hypertension * DVT prophylaxis on heparin Plan * DC antibiotics * renal issue management per nephrology * discharge as per nephrology recommendations Medical - PN: Qual - VTE Deep Vein Thrombosis/Pulmonary Embolism Present on Admission: No
[2017-11-10] MEDS ORDERED: PANTOPRAZOLE 40 MG VIAL IV ONE ×3 (12:48→13:30)
[2017-11-10] MEDS ORDERED: PROTAMINE 50 MG/5 ML VIAL IV ONE ×3 (12:49→13:30)
[2017-11-10] MEDS ORDERED: VANCOMYCIN PER PHARMACY IV SCH (12:58)
[2017-11-10] MEDS ORDERED: DEXTROSE 50% 50 ML VIAL IV PRN (12:58)
[2017-11-10] MEDS ORDERED: MIDODRINE 5 MG TABLET PO PRN (12:58)
[2017-11-10] MEDS ORDERED: ONDANSETRON 4 MG/2 ML VIAL IV PRN (12:58)
[2017-11-10] MEDS ORDERED: ACETAMINOPHEN 325 MG TABLET PO PRN (12:58)
[2017-11-10] MEDS ORDERED: MAGNESIUM SULFATE 2 GM/50 ML BAG IV PRN (12:58)
[2017-11-10] MEDS ORDERED: 0.9 % SODIUM CHLORIDE 10 ML SYRINGE IV PRN (12:58)
[2017-11-10] MEDS ORDERED: PHENobarb/HYOSCY/ATROPINE/SCOP 1 DOSE BOTTLE PO PRN (12:58)
[2017-11-10] MEDS ORDERED: DEXTROSE 31 GM ORAL.SUSP PO PRN (12:58)
[2017-11-10] MEDS ORDERED: 0.9 % SODIUM CHLORIDE 250 ML IV SCH ×3 (13:00→15:15)
[2017-11-10] MEDS ORDERED: PANTOPRAZOLE 40 MG VIAL IV SCH (17:00)
[2017-11-10] MEDS ORDERED: GLYCOPYRROLATE 0.2 MG/ML VIAL IV SCH (17:15)
[2017-11-10] MEDS ORDERED: PROPOFOL 20 ML IV ONE (17:35)
[2017-11-10] MEDS ORDERED: PROPOFOL 0 ML IV ONE (17:35)
[2017-11-10] MEDS ORDERED: MIDAZOLAM 2 MG/2 ML VIAL ONE (17:35)
[2017-11-10] MEDS: PROPOFOL 200 MG/20 ML VIAL IV SCH ×2 (17:40→18:26)
[2017-11-10] MEDS: MIDAZOLAM 2 MG/2 ML VIAL IV SCH ×2 (17:40→18:26)
[2017-11-10] MEDS: EPINEPHrine 1 MG/ML AMPUL ONE ×2 (17:55→19:31)
[2017-11-10] MEDS: PANTOPRAZOLE 40 MG VIAL IV SCH (18:18)
[2017-11-10] MEDS ORDERED: HEPARIN 5,000 UNIT/ML VIAL SQ SCH (21:00)
[2017-11-10] MEDS ORDERED: INSULIN GLARGINE, HUMAN 1 UNIT/0.01 ML SQ SCH (21:00)
[2017-11-10] MEDS ORDERED: FUROSEMIDE 40 MG/4 ML VIAL IV SCH (21:00)
[2017-11-10] MEDS ORDERED: SENNOSIDES/DOCUSATE SODIUM 1 TAB TABLET PO SCH (21:00)
[2017-11-11 05:09] LABS: Vancomycin,Random 17.1 ug/mL
[2017-11-11 05:11] LABS: Blood Urea Nitrogen 62 mg/dl (8-23)
[2017-11-11] MEDS: PIPERACILLIN SODIUM/TAZOBACTAM 2.25 GM in DEXTROSE 5% IN WATER 50 ML IV SCH ×3 (05:11→22:54)
--- NOTE | 2017-11-11 05:58 | Nephrology Progress Note ---
Subjective Patient information: Note initiated : 11/11/17 at 5:55 am Brandon Austin is an 8-yuj[age]-tex male with coronary artery disease, diabetes mellitus type 2, hypertension, hyperlipidemia admitted on 11/02/17 for recent onset anorexia, dyspnea and weakness for one month. Chief Complaint: Weakness. Principal diagnosis: Acute renal failure, fluid overload Interval history: Acute gastrointestinal bleeding. Transferred to ICU. Pertinent ROS: No shortness of breath. No chest pain. No abdominal pain. Leg edema. Weakness. Objective - Vital Signs Vital signs: Vital Signs Temp Pulse Pulse Resp BP BP Pulse Ox 11/11/17 05:02 80 98 11/11/17 05:01 80 115/61 97 11/11/17 05:00 82 97 11/11/17 04:01 78 96 11/11/17 04:00 97.6 F 77 18 106/70 97 11/11/17 03:01 75 110/72 96 11/11/17 03:00 74 96 11/11/17 02:01 78 92/61 95 11/11/17 02:00 75 93 11/11/17 01:01 80 95 11/11/17 01:00 82 112/66 95 11/11/17 00:02 75 94 11/11/17 00:01 97.9 F 73 20 95/59 94 11/11/17 00:00 74 94 11/10/17 23:01 77 125/76 95 11/10/17 23:00 80 94 11/10/17 22:01 80 93 11/10/17 22:00 80 91/59 93 11/10/17 21:01 80 117/69 93 11/10/17 21:00 81 94 11/10/17 20:01 98.3 F 87 20 91/70 95 11/10/17 20:00 85 96 11/10/17 19:01 85 144/76 95 11/10/17 19:00 84 95 11/10/17 18:19 104 H 146/90 92 11/10/17 18:10 80 18 143/81 94 11/10/17 18:08 79 143/89 98 11/10/17 18:01 77 100 11/10/17 18:00 79 18 152/94 100 11/10/17 17:56 78 161/103 100 11/10/17 17:55 73 18 161/103 97 11/10/17 17:30 69 16 93/74 99 11/10/17 17:01 93/74 11/10/17 16:55 97.6 F 16 105/73 99 11/10/17 16:00 131/90 11/10/17 15:40 102/69 11/10/17 15:25 105/73 11/10/17 14:00 98.2 F 101 H 16 100/68 95 11/10/17 12:00 97.0 F 16 102/66 97 11/10/17 07:36 97.9 F 16 108/73 95 11/10/17 07:17 78 16 95 Intake and Output 11/10/17 11/10/17 11/11/17 13:59 21:59 05:59 Intake Total 290 / 290 50 / 50 Output Total 200 / 200 900 / 900 60 / 60 Balance -200 / -200 -610 / -610 -10 / -10 Intake: IV 50 / 50 50 / 50 Zosyn 2.25 gm In Dextrose 5% in 50 / 50 50 / 50 Water 50 ml @ 100 mls/hr IV Q8H [facility] Rx#:[id number] Oral 240 / 240 Output: Urine Catheter Amount 900 / 900 60 / 60 Stool 200 / 200 Other: Meal Lunch Percent of Meal Consumed 100% Feeding Ability Independent Stool Size Moderate Stool Color Dark Red Blood Stool Consistency Liquid # Bowel Movements 1 Weight 183 lb 11.2 oz Patient Weight 11/11/17 05:59 Weight 183 lb 11.2 oz Intake & Output: Intake & Output 11/10/17 11/10/17 11/11/17 13:59 21:59 05:59 Intake Total 290 / 290 50 / 50 Output Total 200 / 200 900 / 900 60 / 60 Balance -200 / -200 -610 / -610 -10 / -10 Weight 183 lb 11.2 oz Intake: IV 50 / 50 50 / 50 Zosyn 2.25 gm In Dextrose 5% in 50 / 50 50 / 50 Water 50 ml @ 100 mls/hr IV Q8H [facility] Rx#:[id number] Oral 240 / 240 Output: Urine Catheter Amount 900 / 900 60 / 60 Stool 200 / 200 Other: Meal Lunch Percent of Meal Consumed 100% Feeding Ability Independent Stool Size Moderate Stool Color Dark Red Blood Stool Consistency Liquid # Bowel Movements 1 - General Appearance General appearance: appears started age, fatigue EENT: mucous membranes moist Neck: supple Respiratory: clear Cardiology: edema Gastrointestinal: no tenderness Integumentary: warm and dry Neurologic: no focal deficit, alert and oriented x3 Musculoskeletal: no erythema, no cyanosis Psychiatric: mood/affect appropriate, cooperative - Lab 11/11/17 04:00 11/11/17 04:00 Most recent lab results Calcium 8.0 mg/dl (8.6-10.4) L 11/11/17 04:00 Phosphorus 4.1 mg/dL (2.7-4.5) 11/10/17 05:00 Magnesium 1.9 mg/dL (1.6-2.5) 11/11/17 04:00 Assessment and Plan (1) Acute kidney failure with tubular necrosis Work up: CXR on 11/04/17: Bilateral parenchymal infiltrates and pleural fluid collections. No significant interval change since 11/03/2017 Echo on 11/03/17: LVEF 50-70%, moderate pulmonary hypertension and left pleural effusion. US Renal on 11/03/17: Abnormal resistive index bilaterally. No evidence for renal artery stenosis. US Renal on 11/02/17: No hydronephrosis. Mildly echogenic renal cortex bilaterally consistent with medical renal disease. Urinalysis on 11/02/17: Yellow, hazy, pH 5.0, SG 1.017, protein 30, occult blood negative. Random urine protein / creatinine ratio 11/02/17: Pending. Progress: Transferred to ICU for acute gastrointestinal bleeding. Hemodialysis on 11/03, 11/04 and 11/07. Urine output 1650 ml reported in the past 24 hours. Creatinine increased from 4.0 to 4.2 in the past 24 hours. Discussion: Etiology likely recent prescription medication change, Advil use and acute illness. Plan: Monitor dialysis need with renal panel and urine output. No hemodialysis today. Avoid IV contrast and nephrotoxic medications. Discharge planning: He would need tunneled dialysis catheter (at [facility]) and outpatient hemodialysis arrangement (at [facility]) with acute kidney injury diagnosis at this point. Anticipate improvement of acute kidney injury and discharge without dialysis in 3-5 days. Status: Acute Priority: High (2) Anasarca Improved with good urine output and ultrafiltration with dialysis. Plan: Furosemide 40 mg IV Q12 and KCl 20 mEq PO BID discontinued. Status: Acute Priority: Medium
--- NOTE | 2017-11-11 07:10 | Internal Med Progress Note ---
Medical - PN: Subj Patient information: Note initiated : 11/11/17 at 7:07 am Service Date, if different from initiated Date: [] Patient: Brandon Austin 82 y/o M admitted on 11/02/17 for Pneumonia/Acute Renal Failure. Chief Complaint: [] Interval history: The patient is an 82-year-old gentleman who lives with his , Lorie, at [facility] and has been in his baseline state of health with history of diabetes, hypertension. Over the last few of weeks, he has noticed increasing weight gain to the amount of 60 pounds. Patient has had difficulty voiding and emptying bladder. He, however, denies taking new medications. He had upper respiratory symptoms roughly 2 weeks ago and since then he has had progressive difficulty emptying. he has been trying to alleviate his symptoms with juxy-fge-rjscida medications. He denies abdominal pain, bloody urine, bloody stool. He does have associated shortness of breath which has progressed from dyspnea on maximal exertion to dyspnea at rest. He is unable to perform activities of daily living. With increasing concerns, the patient was evaluated at [facility] ER today. Initial workup was significant for bibasilar infiltrates with parapneumonic effusion on chest imaging, along with acute renal failure with a creatinine of 4.3 and potassium 5.4 and a pH of 7.33 on basic panel. Due to lack of availability of beds at [facility], Hospitalist Service at [facility] was consulted. I received the phone sign-out from Dr. Senior, [facility] ED physician, and subsequently accepted the patient based on the above data. The patient on arrival appears stable. He was able to answer most of the questions. He is short of breath, was able to talk in full sentences. He endorses to history as above. He is , but his was not available for further evaluation of history. 11/03 patient seen and examined, overnight events noted, patient was hypotensive overnight, and was started on levophed drip, no icu bed available, hence was on the tele status with the drip. he was moved to icu today, as soon as bed opened, He has had poor urine output, and did not respond to lasix, nephrology following , plan to get temporary cath placed and dialysis to be initiated Echo reviewed, normal lvef, moderate pulm HTN noted pt on levophed, picc to be placed for pressor support On iv antibiotics rocepin, levofloxacin,, d/c same, start on vanco and zosyn CXR shows ricardo infiltrates, and pleural effusion. Renal USG shows abnormal restive indices, but no significant renal artery stenosis 11/04 Patient seen and examined, no acute overnight events, sitting comfortably in the bed. Blood pressure stable still on Levophed drip. The patient responded well to dialysis last night, this morning the patient has some urine output and response to Lasix. He will undergo dialysis again today. Nephrology is following. Like to wean off Levophed as tolerated, chest x-ray shows bilateral infiltrates and bilateral effusions patient is on broad- spectrum antibiotics. 11/05 Patient seen and examined, sitting comfortably in the chair no acute overnight events, still on pressors Levophed is running at 2 mics. The patient denies any acute complaints at this time. He has been making urine since last night and seems to be responding well to Lasix creatinine is trending down. Nephrology following. 11/06 Patient seen examined, no acute overnight events, patient still on pressors pressure was bumped up yesterday and is still at around 5-7 mics. The patient otherwise has no acute complaints. Patient's urine output is good, -1370 over 24 hours yesterday and is -900 today Patient's creatinine bumped up slightly Nephrology does not plan for dialysis today. Chest x-ray shows stable effusions 11/07=- patient seen in room. Multiple family members. Interest family concerns. Patient currently on room air. On 3 mics Levophed. Pressors managed by nephrology. Improving urine output but blood-tinged. No concerns expressed by nursing staff. No telemetry events. 11/08- Patient off pressors. No overnight event. Improving urine output. Hemodialysis ongoing per nephrology. No fever chills or concerns per staff. Family at bedside. Discussed treatment plan and clinical improvement. Transfer to telemetry. 11/09- patient doing well. Family at bedside including daughter and . No overnight events. Feels at baseline. No active concerns. Foleys draining clear urine. No telemetry events currently in sinus. Hemodynamics stable currently off vasopressors. No concerns expressed by nursing staff patient and family. Transfer to medical floor. Case discussed with Dr. Oquendo who nephrology and recommends continuing of hemodialysis and the inpatient management until renal function improves. November 10- ongoing hemodialysis per nephrology. Patient stable. No overnight events. No concerns per staff. patient started experiencing multiple bloody bowels. stat H&H/4 hourly H&H series ordered. started on IV PPI. Transfer to telemetry. Case discussed with GI Dr. Jarquin for urgent upper endoscopy. Likely cause NSAID-induced gastritis versus duodenal ulcer. Cross type and transfuse if hemoglobin drops over 30% or hemoglobin less than 7.5. November 11-patient status post upper endoscopy. On a twice-daily IV PPI. Advanced to clearsper GI. Duodenal ulcer/gastritis/duodenitis likely secondary to NSAIDs. No significant overnight events. Hemoglobin stable at 10.2. no dizziness lightheadedness . One episode of bloody bowel early this morning.creatinine 4.2. - Constitutional Vitals: Vital Signs Temp Pulse Resp BP Pulse Ox 97.6 F 80 18 124/74 98 11/11/17 04:00 11/11/17 05:02 11/11/17 04:00 11/11/17 06:01 11/11/17 05:02 Period Temp Pulse Resp BP Sys/Kelly Pulse Ox Last 24 Hr 97.0 F-98.3 F 69-104 16-20 91-161/59-103 92-100 Intake and Output 11/10/17 11/11/17 11/11/17 21:59 05:59 13:59 Intake Total 290 / 290 50 / 50 Output Total 1010 / 1010 780 / 780 Balance -720 / -720 -730 / -730 Weight 183 lb 11.2 oz Intake & Output: Intake & Output 11/10/17 11/11/17 11/11/17 21:59 05:59 13:59 Intake Total 290 / 290 50 / 50 Output Total 1010 / 1010 780 / 780 Balance -720 / -720 -730 / -730 Weight 183 lb 11.2 oz Intake: IV 50 / 50 50 / 50 Zosyn 2.25 gm In Dextrose 5% in 50 / 50 50 / 50 Water 50 ml @ 100 mls/hr IV Q8H [facility] Rx#:[id number] Oral 240 / 240 Output: Urine Catheter Amount 1010 / 1010 780 / 780 Other: Meal Lunch Percent of Meal Consumed 100% Feeding Ability Independent General appearance: cooperative, no acute distress Exam: alert oriented No anxiety nonlabored breathing nontender nondistended abdomen Medical - PN: Obj Da - Labs CBC & Chem 7: 11/11/17 04:00 11/11/17 04:00 Labs: Abnormal Lab Results 11/11/17 11/11/17 11/11/17 04:00 04:00 00:25 RBC Hgb 10.2 L 10.2 L Hct RDW Lymphocytes % RBC Morphology Anisocytosis BUN 62 H Creatinine 4.2 H Glucose Calcium 8.0 L Albumin Albumin/Globulin Ratio 11/10/17 11/10/17 11/10/17 19:52 16:38 13:50 RBC Hgb 10.0 L 10.9 L 11.0 L Hct 33.0 L RDW Lymphocytes % RBC Morphology Anisocytosis BUN Creatinine Glucose Calcium Albumin Albumin/Globulin Ratio 11/10/17 11/10/17 11/09/17 05:00 05:00 04:00 RBC 4.14 L Hgb 11.8 L Hct 35.0 L RDW 15.1 H Lymphocytes % 14 L RBC Morphology Abnorm A Anisocytosis Few A BUN 54 H 47 H Creatinine 4.0 H 3.8 H Glucose 66 L Calcium 7.9 L 7.8 L Albumin 2.5 L 2.5 L Albumin/Globulin Ratio 0.7 L 0.7 L 11/09/17 04:00 RBC 4.44 L Hgb 12.4 L Hct 37.8 L RDW 15.6 H Lymphocytes % 8 L RBC Morphology Abnorm A Anisocytosis 1+ A BUN Creatinine Glucose Calcium Albumin Albumin/Globulin Ratio Meds: Medications Acetaminophen (Tylenol) 650 mg PO Q4-6HP PRN PRN Reason: PAIN/FEVER > 101 Belladonna/Phenobarbital (Gi Cocktail) 1 dose PO Q4HP PRN PRN Reason: Dyspepsia Dextrose (Dextrose 50%) 0 ml IV UD PRN PRN Reason: Hypoglycemia Diagnostic Test (Pha) (Accu-Chek) 1 each FS ACHS [facility] Last Admin: 11/10/17 21:04 Dose: 1 each Docusate Sodium (Colace) 100 mg PO BID [facility] Last Admin: 11/10/17 21:05 Dose: Not Given Glucose (Insta-Glucose) 15 gm PO PRN PRN PRN Reason: Hypoglycemia Heparin Sodium (Porcine) (Heparin Flush) 2 ml IV Q12 [facility] Last Admin: 11/10/17 21:06 Dose: 2 ml Magnesium Sulfate (Magnesium Sulfate) 2 gm in 50 mls @ 50 mls/hr IV UD PRN PRN Reason: MG = or < 1.7 Piperacillin Sod/Tazobactam (Sod 2.25 gm/ Dextrose) 50 mls @ 100 mls/hr IV Q8H [facility] Last Admin: 11/11/17 05:11 Dose: 100 mls/hr Insulin Glargine (Lantus) 15 unit SQ [facility] Last Admin: 11/10/17 21:07 Dose: Not Given Insulin Human Lispro (Humalog) 0 unit SQ [facility] PRN Reason: Protocol Last Admin: 11/10/17 21:08 Dose: Not Given Midodrine (Midodrine Hcl) 5 mg PO Q6HP PRN PRN Reason: Hypotension Ondansetron HCl (Zofran) 4 mg IV Q4-6HP PRN PRN Reason: Nausea And Vomiting Pantoprazole Sodium (Protonix) 40 mg IV BIDAC [facility] Last Admin: 11/10/17 18:18 Dose: 40 mg Senna/Docusate Sodium (Senna Plus Tablet) 1 tab PO HS [facility] Last Admin: 11/10/17 21:13 Dose: Not Given Sevelamer Carbonate (Renvela) 800 mg PO TIDCC [facility] Last Admin: 11/10/17 18:27 Dose: Not Given Sodium Chloride (Saline Flush) 10 ml IV UD PRN PRN Reason: FLUSH Sodium Chloride (Saline Flush) 10 ml IV Q12 [facility] Last Admin: 11/10/17 21:12 Dose: 10 ml Vancomycin HCl (Vancomycin Per Pharmacy) 1 order IV [facility] Medical - PN: A/P - Time Spent With Patient Total time spent is greater than 50% in coordination of care (as documented) at patient's floor/unit and/or counseling patient: 15 - 24 minutes - Narrative A/P Narrative: A/P * upper GI bleed secondary to duodenal ulcer-on IV PPI. status post EGD. Continue 4 hourly hemoglobin check. Transfuse if indicated * Acute Kidney Injury-managed by nephrology. creatinine 4.2 * HCAP-Completed antibiotic course. * Altered Mental status- fully resolved * Diabetes Mellitus type 2-on basal prandial insulin * Coronary Artery Disease * hyperphosphatemia secondary to renal failure * hypotension- clinically improved now off pressor * Pulmonary Hypertension * DVT prophylaxis on heparin Plan * continue IV PPI * Continue telemetry monitoring * Advance diet per GI * renal issue management per nephrology Medical - PN: Qual - VTE Deep Vein Thrombosis/Pulmonary Embolism Present on Admission: No
[2017-11-11] MEDS ORDERED: PANTOPRAZOLE 40 MG TABLET PO SCH (07:30)
--- NOTE | 2017-11-11 07:37 | Operative Note ---
DATE OF OPERATION: 11/10/2017 PREPROCEDURE DIAGNOSIS: GI bleeding, probably upper. POSTPROCEDURE DIAGNOSES: 1. Upper gastrointestinal bleed secondary to duodenal ulcer. 2. Duodenal erosions in addition to duodenal ulcer. 3. Gastritis. 4. EGitis with possible reflux. PROCEDURE: Esophagogastroduodenoscopy with biopsy and control of bleeding. INSTRUMENT USED: Olympus KRISTOPHER [id number] endoscope. SPECIMENS OBTAINED: Biopsies from antrum for histopathology and CLOtest, biopsies from distal esophagus. Patrizia Test Results: Negative INDICATIONS FOR PROCEDURE: The patient is an 82-year-old gentleman referred to me by Dr. Victor. The patient's primary care physician is Dr. Sanchez. The patient for some reason has been taking a large amount of nonsteroidal anti-inflammatory drugs. I believe it was ibuprofen. He was on dialysis. He did compromise his kidneys. He has been off dialysis for a couple days. I believe his kidneys are starting to improve and function. Today around noon he started having some bleeding. He had some reddish or dark reddish blood per rectum. He did not vomit; however, he has had some reflux symptoms in the past. With his history of ibuprofen use and he also had a slight increase in the BUN I felt it was horner to start with the upper GI tract rather than a colonoscopy. The patient's hemoglobin was drifting down only a little bit and his blood pressure and pulse were reasonable. Endoscopy is indicated. INFORMED CONSENT: The procedure was reviewed with the patient. The patient had no further questions and accepts the risks and benefits thereof. One of the risks that were discussed included . Additional risks that were also discussed included bleeding, reaction to medication, possible perforation and possible need for surgery. IV MEDICATIONS USED: Versed 1 and propofol 60 mg. FINDINGS: ESOPHAGUS: Proximal and mid esophagus normal. Distal esophagus: There was an increased number of fine blood vessels which is consistent with, but not necessarily diagnostic of, reflux. EG junction was at 37 cm with mild erythema and edema noted. There was slight scarring. There was a hiatal hernia down to 45 cm. STOMACH: Cardia, fundus and body normal. Antrum: There were a few linear areas of erythema noted. Biopsies were taken for CLOtest and histopathology. PYLORUS: Normal. DUODENUM: In the bulb, there was an 8 x 12 mm ulcer with a red spot. It was not actively bleeding at this time. This area was treated with about 10 mL of hypertonic saline/epinephrine mixture and the heater probe was applied. No significant bleeding was precipitated. The descending limb of the duodenum appeared normal. RECOMMENDATIONS: Liquid diet can be allowed. It should be caffeine-free. PPI medication should be continued. Initially it should be IV and then p.o. I recommend a repeat EGD in about 3 months to check status of healing. I do not believe we should proceed with a colonoscopy at this time. If, however, the patient has continued bleeding and there is no evidence of bleeding from the upper GI tract we may need to consider colonoscopy. I believe he states his last colonoscopy was probably about 10 years ago. SEDATION TIME: 17:40 to 18:30. Please refer to the preprocedure nurse's notes, procedure flowsheet, procedure record, and post-procedure assessment for details of the sedation including the pre-, intra-and post-service work. CRD:kh Job ID: [id number] Doc ID: [id number] Roni Victor MD [facility]
[2017-11-11] MEDS: SEVELAMER 800 MG TABLET PO SCH ×3 (07:48→17:46)
[2017-11-11] MEDS: PANTOPRAZOLE 40 MG VIAL IV SCH ×2 (07:48→17:47)
[2017-11-11] MEDS: INSULIN LISPRO 1 UNIT/0.01 ML UNIT SQ SCH ×4 (07:50→20:25)
[2017-11-11] MEDS: DOCUSATE SODIUM 100 MG CAPSULE PO SCH ×2 (10:32→20:26)
[2017-11-11] MEDS: 0.9 % SODIUM CHLORIDE 10 ML SYRINGE IV SCH ×2 (12:20→20:25)
[2017-11-11] MEDS ORDERED: ACETAMINOPHEN 325 MG TABLET PO PRN (15:55)
[2017-11-11] MEDS ORDERED: DEXTROSE 31 GM ORAL.SUSP PO PRN (15:55)
[2017-11-11] MEDS ORDERED: PHENobarb/HYOSCY/ATROPINE/SCOP 1 DOSE BOTTLE PO PRN (15:55)
[2017-11-11] MEDS ORDERED: VANCOMYCIN PER PHARMACY IV SCH (15:55)
[2017-11-11] MEDS ORDERED: MAGNESIUM SULFATE 2 GM/50 ML BAG IV PRN (15:55)
[2017-11-11] MEDS ORDERED: DEXTROSE 50% 50 ML VIAL IV PRN (15:55)
[2017-11-11] MEDS ORDERED: MIDODRINE 5 MG TABLET PO PRN (15:55)
[2017-11-11] MEDS ORDERED: ONDANSETRON 4 MG/2 ML VIAL IV PRN (15:55)
[2017-11-11] MEDS: INSULIN GLARGINE, HUMAN 1 UNIT/0.01 ML SQ SCH (20:25)
[2017-11-11] MEDS: SENNOSIDES/DOCUSATE SODIUM 1 TAB TABLET PO SCH (20:26)
[2017-11-12 05:56] LABS: Basophils # (Auto) 0.1 K/mcL (0.0-0.3); Basophils % (Auto) 1.3 % (0.0-2.0); Eosinophils # (Auto) 0.5 K/mcL (0.0-0.7); Eosinophils % (Auto) 8.1 % (0.0-7.0); Granulocytes % (Auto) 65.1 % (38.0-78.0); Lymphocytes # (Auto) 0.8 K/mcL (1.5-4.8); Lymphocytes % (Auto) 13.6 % (15.5-49.0); Mean Cell Volume 83.9 fL (80.0-100.0); Mean Corpuscular HGB Conc 33.9 g/dL (31.0-36.0); Mean Corpuscular Hemoglobin 28.4 pg (26.0-34.0); Monocytes # (Auto) 0.7 K/mcL (0.1-0.9); Monocytes % (Auto) 11.9 % (1.0-12.0); Platelet Count 213 K/mcL (140-440); RBC 3.43 M/mcL (4.50-5.90); Red Cell Distribution Width 15.6 % (11.5-14.5)
[2017-11-12] MEDS: PIPERACILLIN SODIUM/TAZOBACTAM 2.25 GM in DEXTROSE 5% IN WATER 50 ML IV SCH (05:57)
[2017-11-12 06:12] LABS: Vancomycin,Random 14.6 ug/mL
[2017-11-12 06:15] LABS: ALT/SGPT 20 U/l (0-40); Albumin 2.5 gm/dL (3.2-5.2); Albumin/Globulin Ratio 0.7 (1.0-2.3); Alkaline Phosphatase 99 U/L (39-117); Bilirubin,Direct 0.2 mg/dL (0.0-0.3); Blood Urea Nitrogen 63 mg/dl (8-23); Gamma Glutamyl Transpeptidase 30 U/L (8-61); Uric Acid 5.4 mg/dL (2.5-8.0)
--- NOTE | 2017-11-12 07:49 | Nephrology Progress Note ---
Subjective Patient information: Note initiated : 11/12/17 at 7:48 am Brandon Austin is an [id number]-xad male with coronary artery disease, diabetes mellitus type 2, hypertension, hyperlipidemia admitted on 11/02/17 for recent onset anorexia, dyspnea and weakness for one month. Chief Complaint: Weakness. Principal diagnosis: Acute renal failure, fluid overload Interval history: Moved to room 119. Family in the room. Pertinent ROS: Feels good. Legs swollen. No shortness of breath. No chest pain. Objective - Vital Signs Vital signs: Vital Signs Temp Pulse Pulse Resp BP Pulse Ox 11/12/17 06:00 76 97 11/12/17 05:00 77 96 11/12/17 04:21 97.2 F 72 16 121/76 96 11/11/17 23:42 97.3 F 16 116/70 11/11/17 20:34 97.8 F 16 113/74 11/11/17 20:01 80 113/74 96 11/11/17 19:04 116/75 11/11/17 18:01 123/79 11/11/17 17:01 123/74 11/11/17 16:01 118/76 11/11/17 15:00 117/65 11/11/17 14:01 79/50 11/11/17 13:01 121/59 11/11/17 12:01 119/86 11/11/17 11:00 107/66 11/11/17 10:01 105/55 11/11/17 09:43 104/67 Intake and Output 11/11/17 11/12/17 11/12/17 21:59 05:59 13:59 Intake Total 50 / 50 100 / 100 50 / 50 Output Total 325 / 325 Balance 50 / 50 -225 / -225 50 / 50 Intake: IV 50 / 50 50 / 50 50 / 50 Zosyn 2.25 gm In Dextrose 5% in 50 / 50 50 / 50 Water 50 ml @ 100 mls/hr IV Q8H [facility] Rx#:[id number] Oral 50 / 50 Output: Urine Catheter Amount 325 / 325 Other: Stool Size Moderate Stool Color Brown Black Stool Consistency Loose # Bowel Movements 1 Weight 182 lb 9.6 oz Intake & Output: Intake & Output 11/11/17 11/12/17 11/12/17 21:59 05:59 13:59 Intake Total 50 / 50 100 / 100 50 / 50 Output Total 325 / 325 Balance 50 / 50 -225 / -225 50 / 50 Weight 182 lb 9.6 oz Intake: IV 50 / 50 50 / 50 50 / 50 Zosyn 2.25 gm In Dextrose 5% in 50 / 50 50 / 50 Water 50 ml @ 100 mls/hr IV Q8H [facility] Rx#:[id number] Oral 50 / 50 Output: Urine Catheter Amount 325 / 325 Other: Stool Size Moderate Stool Color Brown Black Stool Consistency Loose # Bowel Movements 1 - General Appearance General appearance: appears started age EENT: mucous membranes moist Neck: supple Respiratory: clear Cardiology: normal S1, normal S2 Gastrointestinal: no tenderness Integumentary: warm and dry Neurologic: no focal deficit, alert and oriented x3 Musculoskeletal: no erythema - Lab 11/12/17 05:00 11/12/17 05:00 Most recent lab results Calcium 8.0 mg/dl (8.6-10.4) L 11/12/17 05:00 Phosphorus 4.3 mg/dL (2.7-4.5) 11/12/17 05:00 Magnesium 2.0 mg/dL (1.6-2.5) 11/12/17 05:00 Assessment and Plan (1) Acute kidney failure with tubular necrosis Work up: CXR on 11/04/17: Bilateral parenchymal infiltrates and pleural fluid collections. No significant interval change since 11/03/2017 Echo on 11/03/17: LVEF 50-70%, moderate pulmonary hypertension and left pleural effusion. US Renal on 11/03/17: Abnormal resistive index bilaterally. No evidence for renal artery stenosis. US Renal on 11/02/17: No hydronephrosis. Mildly echogenic renal cortex bilaterally consistent with medical renal disease. Urinalysis on 11/02/17: Yellow, hazy, pH 5.0, SG 1.017, protein 30, occult blood negative. Random urine protein / creatinine ratio 11/02/17: Pending. Progress: Transferred to ICU for acute gastrointestinal bleeding. Hemodialysis on 11/03, 11/04 and 11/07. Creatinine 4.2, did not change in the past 24 hours. Discussion: Etiology likely recent prescription medication change, Advil use and acute illness. Plan: Monitor dialysis need with renal panel and urine output. No hemodialysis today. Avoid IV contrast and nephrotoxic medications. Discharge planning: He would need tunneled dialysis catheter (at [facility]) and outpatient hemodialysis arrangement (at [facility]) with acute kidney injury diagnosis at this point. Anticipate improvement of acute kidney injury and discharge without dialysis in 3-5 days. Status: Acute Priority: High (2) Anasarca Plan: Would resume Furosemide 40 mg IV Q12 and KCl 40 mEq PO BIDCC (ordered). Status: Acute Priority: Medium
[2017-11-12] MEDS: SEVELAMER 800 MG TABLET PO SCH ×3 (08:04→17:28)
[2017-11-12] MEDS: INSULIN LISPRO 1 UNIT/0.01 ML UNIT SQ SCH ×4 (08:04→21:30)
[2017-11-12] MEDS: DOCUSATE SODIUM 100 MG CAPSULE PO SCH ×2 (08:04→21:29)
[2017-11-12] MEDS: PANTOPRAZOLE 40 MG VIAL IV SCH ×2 (08:04→17:28)
[2017-11-12] MEDS ORDERED: VANCOMYCIN 1,000 MG in 0.9 % SODIUM CHLORIDE 250 ML IV ONE (09:00)
--- NOTE | 2017-11-12 09:03 | XRay Report ---
INDICATION: Renal failure. Pneumonia. Pulmonary edema. TECHNIQUE: AP chest x-ray,portable semiupright COMPARISON: 11/06/2017, 11/05/2017, 11/04/2017, 11/03/2017 FINDINGS:No change in left-sided PICC line and right central venous catheter positions. Bilateral pleural effusions. Bilateral, bibasilar infiltrates consistent with pulmonary edema. Pneumonia is possible. Radiographic appearance is essentially stable with no definite interval change IMPRESSION: 1. Bilateral pleural effusions and bibasilar parenchymal infiltrates 2. No definite interval change Interpreted and Authenticated by: Darius Andres 11/12/17
[2017-11-12] MEDS: 0.9 % SODIUM CHLORIDE 10 ML SYRINGE IV SCH ×2 (09:38→21:31)
[2017-11-12] MEDS: POTASSIUM CHLORIDE 20 MEQ TABLET PO SCH ×2 (09:39→17:28)
[2017-11-12] MEDS: FUROSEMIDE 40 MG/4 ML VIAL IV SCH ×2 (09:39→21:30)
--- NOTE | 2017-11-12 15:18 | Internal Med Progress Note ---
Medical - PN: Subj Patient information: Note initiated : 11/12/17 at 3:18 pm Service Date, if different from initiated Date: [] Patient: Brandon Austin 82 y/o M admitted on 11/02/17 for Pneumonia/Acute Renal Failure. Chief Complaint: [] Interval history: The patient is an 82-year-old gentleman who lives with his , Lorie, at [facility] and has been in his baseline state of health with history of diabetes, hypertension. Over the last few of weeks, he has noticed increasing weight gain to the amount of 60 pounds. Patient has had difficulty voiding and emptying bladder. He, however, denies taking new medications. He had upper respiratory symptoms roughly 2 weeks ago and since then he has had progressive difficulty emptying. he has been trying to alleviate his symptoms with bxum-bhj-xhzlonk medications. He denies abdominal pain, bloody urine, bloody stool. He does have associated shortness of breath which has progressed from dyspnea on maximal exertion to dyspnea at rest. He is unable to perform activities of daily living. With increasing concerns, the patient was evaluated at ER today. Initial workup was significant for bibasilar infiltrates with parapneumonic effusion on chest imaging, along with acute renal failure with a creatinine of 4.3 and potassium 5.4 and a pH of 7.33 on basic panel. Due to lack of availability of beds at , Hospitalist Service at [facility] was consulted. I received the phone sign-out from Dr. Senior, ED physician, and subsequently accepted the patient based on the above data. The patient on arrival appears stable. He was able to answer most of the questions. He is short of breath, was able to talk in full sentences. He endorses to history as above. He is , but his was not available for further evaluation of history. 11/03 patient seen and examined, overnight events noted, patient was hypotensive overnight, and was started on levophed drip, no icu bed available, hence was on the tele status with the drip. he was moved to icu today, as soon as bed opened, He has had poor urine output, and did not respond to lasix, nephrology following , plan to get temporary cath placed and dialysis to be initiated Echo reviewed, normal lvef, moderate pulm HTN noted pt on levophed, picc to be placed for pressor support On iv antibiotics rocepin, levofloxacin,, d/c same, start on vanco and zosyn CXR shows ricardo infiltrates, and pleural effusion. Renal USG shows abnormal restive indices, but no significant renal artery stenosis 11/04 Patient seen and examined, no acute overnight events, sitting comfortably in the bed. Blood pressure stable still on Levophed drip. The patient responded well to dialysis last night, this morning the patient has some urine output and response to Lasix. He will undergo dialysis again today. Nephrology is following. Like to wean off Levophed as tolerated, chest x-ray shows bilateral infiltrates and bilateral effusions patient is on broad- spectrum antibiotics. 11/05 Patient seen and examined, sitting comfortably in the chair no acute overnight events, still on pressors Levophed is running at 2 mics. The patient denies any acute complaints at this time. He has been making urine since last night and seems to be responding well to Lasix creatinine is trending down. Nephrology following. 11/06 Patient seen examined, no acute overnight events, patient still on pressors pressure was bumped up yesterday and is still at around 5-7 mics. The patient otherwise has no acute complaints. Patient's urine output is good, -1370 over 24 hours yesterday and is -900 today Patient's creatinine bumped up slightly Nephrology does not plan for dialysis today. Chest x-ray shows stable effusions 11/07=- patient seen in room. Multiple family members. Interest family concerns. Patient currently on room air. On 3 mics Levophed. Pressors managed by nephrology. Improving urine output but blood-tinged. No concerns expressed by nursing staff. No telemetry events. 11/08- Patient off pressors. No overnight event. Improving urine output. Hemodialysis ongoing per nephrology. No fever chills or concerns per staff. Family at bedside. Discussed treatment plan and clinical improvement. Transfer to telemetry. 11/09- patient doing well. Family at bedside including daughter and . No overnight events. Feels at baseline. No active concerns. Foleys draining clear urine. No telemetry events currently in sinus. Hemodynamics stable currently off vasopressors. No concerns expressed by nursing staff patient and family. Transfer to medical floor. Case discussed with Dr. Oquendo who nephrology and recommends continuing of hemodialysis and the inpatient management until renal function improves. November 10- ongoing hemodialysis per nephrology. Patient stable. No overnight events. No concerns per staff. patient started experiencing multiple bloody bowels. stat H&H/4 hourly H&H series ordered. started on IV PPI. Transfer to telemetry. Case discussed with GI Dr. Jarquin for urgent upper endoscopy. Likely cause NSAID-induced gastritis versus duodenal ulcer. Cross type and transfuse if hemoglobin drops over 30% or hemoglobin less than 7.5. November 11-patient status post upper endoscopy. On a twice-daily IV PPI. Advanced to clearsper GI. Duodenal ulcer/gastritis/duodenitis likely secondary to NSAIDs. No significant overnight events. Hemoglobin stable at 10.2. no dizziness lightheadedness . One episode of bloody bowel early this morning.creatinine 4.2. November 12 Patient seen and examined, family by the bedside, patient has no complaints sitting comfortably in the bed. Tolerating well. Hemoglobin is stable, no acute bleed reported. Patient has no acute symptoms. Patient still has a Sagastume on, nephrology is monitoring his kidney function, patient will likely need a tunnel catheter according to nephrology and will also need dialysis as an outpatient. Patient's blood pressure remains stable he is off pressors chest x-ray reviewed, no evidence of worsening effusions or new infiltrates. Patient has had 9-10 days of IV antibiotics will stop IV vancomycin and Zosyn and monitor the patient Pertinent ROS: Denies headache, dizziness Denies chest pain, palpitations Denies cough or shortness of breath Denies abdominal pain, nausea or vomiting. - Constitutional Vitals: Vital Signs Temp Pulse Resp BP Pulse Ox 98.7 F 74 18 110/60 94 11/12/17 12:00 11/12/17 12:00 11/12/17 12:00 11/12/17 12:00 11/12/17 12:00 Period Temp Pulse Resp BP Sys/Kelly Pulse Ox Last 24 Hr 97.2 F-98.7 F 72-80 16-18 110-127/60-102 94-97 Intake and Output 11/12/17 11/12/17 11/12/17 05:59 13:59 21:59 Intake Total 100 / 100 290 / 290 Output Total 325 / 325 Balance -225 / -225 290 / 290 Intake & Output: Intake & Output 11/12/17 11/12/17 11/12/17 05:59 13:59 21:59 Intake Total 100 / 100 290 / 290 Output Total 325 / 325 Balance -225 / -225 290 / 290 Intake: IV 50 / 50 50 / 50 Zosyn 2.25 gm In Dextrose 5% in 50 / 50 50 / 50 Water 50 ml @ 100 mls/hr IV Q8H [facility] Rx#:[id number] Oral 50 / 50 240 / 240 Output: Urine Catheter Amount 325 / 325 Other: Meal Breakfast Percent of Meal Consumed 100% Stool Consistency Soft Exam: Constitutional; Afebrile, cooperative, alert, not in distress. Eyes- No icterus, , No periorbital swelling Ears- Ext ear normal, hearing normal to conversation. Neck- Midline trachea, supple Respiratory system: Air Entry equal on both sides, No crackles or wheezing, no rhonchi. CVS- Rate rhythm regular, S1,S2 heard, no gallop, no rub. 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 Medical - PN: Obj Da - Labs CBC & Chem 7: 11/12/17 05:00 11/12/17 05:00 Labs: Abnormal Lab Results 11/12/17 11/12/17 11/11/17 05:00 05:00 12:05 RBC 3.43 L Hgb 9.8 L 10.0 L Hct 28.8 L RDW 15.6 H Lymph % (Auto) 13.6 L Eos % (Auto) 8.1 H Lymph # (Auto) 0.8 L Lymphocytes % RBC Morphology Anisocytosis BUN 63 H Creatinine 4.2 H Calcium 8.0 L Albumin 2.5 L Albumin/Globulin Ratio 0.7 L 11/11/17 11/11/17 11/11/17 08:10 04:00 04:00 RBC Hgb 10.5 L 10.2 L Hct RDW Lymph % (Auto) Eos % (Auto) Lymph # (Auto) Lymphocytes % RBC Morphology Anisocytosis BUN 62 H Creatinine 4.2 H Calcium 8.0 L Albumin Albumin/Globulin Ratio 11/11/17 11/10/17 11/10/17 00:25 19:52 16:38 RBC Hgb 10.2 L 10.0 L 10.9 L Hct RDW Lymph % (Auto) Eos % (Auto) Lymph # (Auto) Lymphocytes % RBC Morphology Anisocytosis BUN Creatinine Calcium Albumin Albumin/Globulin Ratio 11/10/17 11/10/17 11/10/17 13:50 05:00 05:00 RBC 4.14 L Hgb 11.0 L 11.8 L Hct 33.0 L 35.0 L RDW 15.1 H Lymph % (Auto) Eos % (Auto) Lymph # (Auto) Lymphocytes % 14 L RBC Morphology Abnorm A Anisocytosis Few A BUN 54 H Creatinine 4.0 H Calcium 7.9 L Albumin 2.5 L Albumin/Globulin Ratio 0.7 L Meds: Medications Acetaminophen (Tylenol) 650 mg PO Q4-6HP PRN PRN Reason: PAIN/FEVER > 101 Belladonna/Phenobarbital (Gi Cocktail) 1 dose PO Q4HP PRN PRN Reason: Dyspepsia Dextrose (Dextrose 50%) 0 ml IV UD PRN PRN Reason: Hypoglycemia Diagnostic Test (Pha) (Accu-Chek) 1 each FS [facility] Last Admin: 11/12/17 12:34 Dose: 1 each Docusate Sodium (Colace) 100 mg PO BID [facility] Last Admin: 11/12/17 08:04 Dose: Not Given Furosemide (Lasix) 40 mg IV Q12 [facility] Stop: 11/17/17 09:59 Last Admin: 11/12/17 09:39 Dose: 40 mg Glucose (Insta-Glucose) 15 gm PO PRN PRN PRN Reason: Hypoglycemia Heparin Sodium (Porcine) (Heparin Flush) 2 ml IV Q12 [facility] Last Admin: 11/12/17 09:38 Dose: 2 ml Magnesium Sulfate (Magnesium Sulfate) 2 gm in 50 mls @ 50 mls/hr IV UD PRN PRN Reason: MG = or < 1.7 Insulin Glargine (Lantus) 15 unit SQ HS [facility] Last Admin: 11/11/17 20:25 Dose: 15 unit Insulin Human Lispro (Humalog) 0 unit SQ ACHS KANDY PRN Reason: Protocol Last Admin: 11/12/17 12:34 Dose: 2 unit Midodrine (Midodrine Hcl) 5 mg PO Q6HP PRN PRN Reason: Hypotension Ondansetron HCl (Zofran) 4 mg IV Q4-6HP PRN PRN Reason: Nausea And Vomiting Pantoprazole Sodium (Protonix) 40 mg IV BIDAC [facility] Last Admin: 11/12/17 08:04 Dose: 40 mg Potassium Chloride (Kdur) 40 meq PO BIDCC [facility] Stop: 11/17/17 09:59 Last Admin: 11/12/17 09:39 Dose: 40 meq Senna/Docusate Sodium (Senna Plus Tablet) 1 tab PO HS [facility] Last Admin: 11/11/17 20:26 Dose: Not Given Sevelamer Carbonate (Renvela) 800 mg PO TIDCC [facility] Last Admin: 11/12/17 12:35 Dose: 800 mg Sodium Chloride (Saline Flush) 10 ml IV UD PRN PRN Reason: FLUSH Sodium Chloride (Saline Flush) 10 ml IV Q12 [facility] Last Admin: 11/12/17 09:38 Dose: 10 ml Medical - PN: A/P - Time Spent With Patient Total time spent is greater than 50% in coordination of care (as documented) at patient's floor/unit and/or counseling patient: - Narrative A/P Narrative: A/P Acute GI bleed-upper GI bleed-due to duodenal ulcer, on twice daily proton pump inhibitors, status post EGD, hemoglobin is stable monitor closely for another 24 hours that can be transferred to floor. No indication for transfusion yet Acute kidney injury-creatinine is stable managed by nephrology patient is making urine, patient will likely need outpatient dialysis. Will have to plan for tunneled catheter placement according to nephrology Healthcare associated pneumonia-status post antibiotics Altered mental dquybr-[id number] Diabetes-on prandial insulin on basal insulin, glucose values at goal Hypotension-patient blood pressure is now stable he is off pressors. Midodrine as needed is ordered Pulmonary hypertension follow-up as outpatient Hyperphosphatemia secondary to renal failure on Renvela DVT prophylaxis- SCD Diet Renal Carb consistent Full code Medical - PN: Qual - VTE Deep Vein Thrombosis/Pulmonary Embolism Present on Admission: No
[2017-11-12] MEDS: INSULIN GLARGINE, HUMAN 1 UNIT/0.01 ML SQ SCH (21:30)
[2017-11-12] MEDS: SENNOSIDES/DOCUSATE SODIUM 1 TAB TABLET PO SCH (21:31)
[2017-11-13 04:50] LABS: Basophils # (Auto) 0 K/mcL (0.0-0.3); Basophils % (Auto) 0.4 % (0.0-2.0); Eosinophils # (Auto) 0.5 K/mcL (0.0-0.7); Eosinophils % (Auto) 8.9 % (0.0-7.0); Lymphocytes # (Auto) 0.8 K/mcL (1.5-4.8); Lymphocytes % (Auto) 12.7 % (15.5-49.0); Mean Cell Volume 84.8 fL (80.0-100.0); Mean Corpuscular HGB Conc 33.1 g/dL (31.0-36.0); Mean Corpuscular Hemoglobin 28.1 pg (26.0-34.0); Monocytes # (Auto) 0.6 K/mcL (0.1-0.9); Platelet Count 226 K/mcL (140-440); RBC 3.14 M/mcL (4.50-5.90)
[2017-11-13 05:04] LABS: Vancomycin,Random 20.5 ug/mL
[2017-11-13 05:13] LABS: ALT/SGPT 19 U/l (0-40); Albumin 2.6 gm/dL (3.2-5.2); Albumin/Globulin Ratio 0.8 (1.0-2.3); Alkaline Phosphatase 96 U/L (39-117); Bilirubin,Direct < 0.2 mg/dL (0.0-0.3); Blood Urea Nitrogen 69 mg/dl (8-23); Gamma Glutamyl Transpeptidase 31 U/L (8-61); Uric Acid 5.4 mg/dL (2.5-8.0)
--- NOTE | 2017-11-13 07:39 | Nephrology Progress Note ---
Subjective Patient information: Note initiated : 11/13/17 at 7:37 am Brandon Austin is an [id number] male with coronary artery disease, diabetes mellitus type 2, hypertension, hyperlipidemia admitted on 11/02/17 for recent onset anorexia, dyspnea and weakness for one month. Chief Complaint: Weakness. Principal diagnosis: Acute renal failure, fluid overload Interval history: No significant change. Pertinent ROS: Lower extremity edema. Pale. No chest pain. No shortness of breath. Objective - Vital Signs Vital signs: Vital Signs Temp Pulse Resp BP BP BP Pulse Ox 11/13/17 04:00 97.8 F 16 104/68 95 11/13/17 00:00 97.6 F 16 126/71 95 11/12/17 20:00 97.8 F 16 122/72 94 11/12/17 18:57 82 95 11/12/17 16:00 98.2 F 94 H 16 110/64 93 11/12/17 12:00 98.7 F 74 18 110/60 94 11/12/17 08:00 97.9 F 80 16 127/102 94 Intake and Output 11/12/17 11/13/17 11/13/17 21:59 05:59 13:59 Intake Total 820 / 820 60 / 60 Output Total 825 / 825 600 / 600 Balance -5 / -5 -540 / -540 Intake: Oral 820 / 820 60 / 60 Output: Urine Catheter Amount 825 / 825 600 / 600 Other: Meal snack Percent of Meal Consumed 100% Feeding Ability Assist with Tray Set Up Weight 184 lb Intake & Output: Intake & Output 11/12/17 11/13/17 11/13/17 21:59 05:59 13:59 Intake Total 820 / 820 60 / 60 Output Total 825 / 825 600 / 600 Balance -5 / -5 -540 / -540 Weight 184 lb Intake: Oral 820 / 820 60 / 60 Output: Urine Catheter Amount 825 / 825 600 / 600 Other: Meal snack Percent of Meal Consumed 100% Feeding Ability Assist with Tray Set Up - General Appearance General appearance: appears started age EENT: mucous membranes moist Neck: supple Respiratory: rales Cardiology: edema, normal S1, normal S2 Gastrointestinal: no tenderness Integumentary: no rash, warm and dry Neurologic: no focal deficit, alert and oriented x3 Musculoskeletal: no erythema, no cyanosis Psychiatric: mood/affect appropriate, cooperative - Lab 11/13/17 04:00 11/13/17 04:00 Most recent lab results Calcium 8.0 mg/dl (8.6-10.4) L 11/13/17 04:00 Phosphorus 3.3 mg/dL (2.7-4.5) 11/13/17 04:00 Magnesium 2.0 mg/dL (1.6-2.5) 11/13/17 04:00 Assessment and Plan (1) Acute kidney failure with tubular necrosis Work up: CXR on 11/04/17: Bilateral parenchymal infiltrates and pleural fluid collections. No significant interval change since 11/03/2017 Echo on 11/03/17: LVEF 50-70%, moderate pulmonary hypertension and left pleural effusion. US Renal on 11/03/17: Abnormal resistive index bilaterally. No evidence for renal artery stenosis. US Renal on 11/02/17: No hydronephrosis. Mildly echogenic renal cortex bilaterally consistent with medical renal disease. Urinalysis on 11/02/17: Yellow, hazy, pH 5.0, SG 1.017, protein 30, occult blood negative. Random urine protein / creatinine ratio 11/02/17: Pending. Repeat urinalysis (11/13/17): No protein but, occult blood and leukocytes ( could be due to Sagastume). Progress: Hemodialysis on 11/03, 11/04 and 11/07. Creatinine increased from 4.2 to 4.4 in the past 24 hours. Edema decreased with Furosemide 40 mg IV BID. Discussion: Etiology attributed to prescription medication change, Advil use and acute illness, however renal function not improving. Plan: Monitor dialysis need with renal panel and urine output. No hemodialysis today, but anticipate need tomorrow with current trend. Avoid IV contrast and nephrotoxic medications. Urine eosinophils requested. Kidney biopsy considered for prognosis (short or long-term dialysis need) and diagnosis. Discharge planning: He would need tunneled dialysis catheter (at [facility]) and outpatient hemodialysis arrangement (at [facility]) with acute kidney injury diagnosis at this point. Status: Acute Priority: High (2) Anasarca Plan: Would resume Furosemide 40 mg IV Q12 and KCl 40 mEq PO BIDCC (ordered). Status: Acute Priority: Medium
[2017-11-13] MEDS: PANTOPRAZOLE 40 MG VIAL IV SCH ×2 (08:00→17:08)
[2017-11-13] MEDS: 0.9 % SODIUM CHLORIDE 10 ML SYRINGE IV SCH ×4 (08:03→21:27)
[2017-11-13] MEDS: INSULIN LISPRO 1 UNIT/0.01 ML UNIT SQ SCH ×4 (08:34→21:26)
[2017-11-13] MEDS: FUROSEMIDE 40 MG/4 ML VIAL IV SCH ×2 (08:55→21:27)
[2017-11-13] MEDS: SEVELAMER 800 MG TABLET PO SCH ×3 (08:55→17:07)
[2017-11-13] MEDS: POTASSIUM CHLORIDE 20 MEQ TABLET PO SCH ×2 (08:55→17:08)
[2017-11-13] MEDS: DOCUSATE SODIUM 100 MG CAPSULE PO SCH ×2 (08:56→21:27)
[2017-11-13 11:58] LABS: Appearance,Urine CLEAR; Bacteria,Urine 0 /hpf (0); Bilirubin,Urine NEG (NEG); Color,Urine YELLOW; Glucose,Urine (UA) NEGATIVE (NEG); Leukocyte Esterase,Urine 25 /uL (NEG); Mucus,Urine FEW /hpf (0); Protein,Urine NEG (NEG); Urine Blood 0.2 mg/dL (<0.03); Urine Hyaline Cast 6 /lpf (0-2); Urine RBC 8 /hpf (0-1); Urine Squamous Epithelial Cell 0 /hpf (0-4); Urine WBC 4 /hpf (0-4); Urobilinogen,Urine NEG (NEG)
[2017-11-13 13:43] LABS: Basophils # (Auto) 0 K/mcL (0.0-0.3); Basophils % (Auto) 0.7 % (0.0-2.0); Eosinophils # (Auto) 0.6 K/mcL (0.0-0.7); Eosinophils % (Auto) 8.1 % (0.0-7.0); Granulocytes % (Auto) 74.1 % (38.0-78.0); Lymphocytes # (Auto) 0.7 K/mcL (1.5-4.8); Lymphocytes % (Auto) 10.1 % (15.5-49.0); Mean Cell Volume 84.5 fL (80.0-100.0); Mean Corpuscular HGB Conc 33.5 g/dL (31.0-36.0); Mean Corpuscular Hemoglobin 28.3 pg (26.0-34.0); Monocytes # (Auto) 0.5 K/mcL (0.1-0.9); Platelet Count 253 K/mcL (140-440); RBC 3.19 M/mcL (4.50-5.90)
--- NOTE | 2017-11-13 15:46 | Internal Med Progress Note ---
Medical - PN: Subj Patient information: Note initiated : 11/13/17 at 3:43 pm Service Date, if different from initiated Date: [] Patient: Brandon Austin 82 y/o M admitted on 11/02/17 for Pneumonia/Acute Renal Failure. Chief Complaint: [] Interval history: The patient is an 82-year-old gentleman who lives with his , Lorie, at [facility] and has been in his baseline state of health with history of diabetes, hypertension. Over the last few of weeks, he has noticed increasing weight gain to the amount of 60 pounds. Patient has had difficulty voiding and emptying bladder. He, however, denies taking new medications. He had upper respiratory symptoms roughly 2 weeks ago and since then he has had progressive difficulty emptying. he has been trying to alleviate his symptoms with zgik-fuj-kihseys medications. He denies abdominal pain, bloody urine, bloody stool. He does have associated shortness of breath which has progressed from dyspnea on maximal exertion to dyspnea at rest. He is unable to perform activities of daily living. With increasing concerns, the patient was evaluated at [facility] ER today. Initial workup was significant for bibasilar infiltrates with parapneumonic effusion on chest imaging, along with acute renal failure with a creatinine of 4.3 and potassium 5.4 and a pH of 7.33 on basic panel. Due to lack of availability of beds at [facility], Hospitalist Service at [facility] was consulted. I received the phone sign-out from Dr. Senior, [facility] ED physician, and subsequently accepted the patient based on the above data. The patient on arrival appears stable. He was able to answer most of the questions. He is short of breath, was able to talk in full sentences. He endorses to history as above. He is , but his was not available for further evaluation of history. 11/03 patient seen and examined, overnight events noted, patient was hypotensive overnight, and was started on levophed drip, no icu bed available, hence was on the tele status with the drip. he was moved to icu today, as soon as bed opened, He has had poor urine output, and did not respond to lasix, nephrology following , plan to get temporary cath placed and dialysis to be initiated Echo reviewed, normal lvef, moderate pulm HTN noted pt on levophed, picc to be placed for pressor support On iv antibiotics rocepin, levofloxacin,, d/c same, start on vanco and zosyn CXR shows ricardo infiltrates, and pleural effusion. Renal USG shows abnormal restive indices, but no significant renal artery stenosis 11/04 Patient seen and examined, no acute overnight events, sitting comfortably in the bed. Blood pressure stable still on Levophed drip. The patient responded well to dialysis last night, this morning the patient has some urine output and response to Lasix. He will undergo dialysis again today. Nephrology is following. Like to wean off Levophed as tolerated, chest x-ray shows bilateral infiltrates and bilateral effusions patient is on broad- spectrum antibiotics. 11/05 Patient seen and examined, sitting comfortably in the chair no acute overnight events, still on pressors Levophed is running at 2 mics. The patient denies any acute complaints at this time. He has been making urine since last night and seems to be responding well to Lasix creatinine is trending down. Nephrology following. 11/06 Patient seen examined, no acute overnight events, patient still on pressors pressure was bumped up yesterday and is still at around 5-7 mics. The patient otherwise has no acute complaints. Patient's urine output is good, -1370 over 24 hours yesterday and is -900 today Patient's creatinine bumped up slightly Nephrology does not plan for dialysis today. Chest x-ray shows stable effusions 11/07=- patient seen in room. Multiple family members. Interest family concerns. Patient currently on room air. On 3 mics Levophed. Pressors managed by nephrology. Improving urine output but blood-tinged. No concerns expressed by nursing staff. No telemetry events. 11/08- Patient off pressors. No overnight event. Improving urine output. Hemodialysis ongoing per nephrology. No fever chills or concerns per staff. Family at bedside. Discussed treatment plan and clinical improvement. Transfer to telemetry. 11/09- patient doing well. Family at bedside including daughter and . No overnight events. Feels at baseline. No active concerns. Foleys draining clear urine. No telemetry events currently in sinus. Hemodynamics stable currently off vasopressors. No concerns expressed by nursing staff patient and family. Transfer to medical floor. Case discussed with Dr. Oquendo who nephrology and recommends continuing of hemodialysis and the inpatient management until renal function improves. November 10- ongoing hemodialysis per nephrology. Patient stable. No overnight events. No concerns per staff. patient started experiencing multiple bloody bowels. stat H&H/4 hourly H&H series ordered. started on IV PPI. Transfer to telemetry. Case discussed with GI Dr. Jarquin for urgent upper endoscopy. Likely cause NSAID-induced gastritis versus duodenal ulcer. Cross type and transfuse if hemoglobin drops over 30% or hemoglobin less than 7.5. November 11-patient status post upper endoscopy. On a twice-daily IV PPI. Advanced to [facility]. Duodenal ulcer/gastritis/duodenitis likely secondary to NSAIDs. No significant overnight events. Hemoglobin stable at 10.2. no dizziness lightheadedness . One episode of bloody bowel early this morning.creatinine 4.2. November 12 Patient seen and examined, family by the bedside, patient has no complaints sitting comfortably in the bed. Tolerating well. Hemoglobin is stable, no acute bleed reported. Patient has no acute symptoms. Patient still has a Sagastume on, nephrology is monitoring his kidney function, patient will likely need a tunnel catheter according to nephrology and will also need dialysis as an outpatient. Patient's blood pressure remains stable he is off pressors chest x-ray reviewed, no evidence of worsening effusions or new infiltrates. Patient has had 9-10 days of IV antibiotics will stop IV vancomycin and Zosyn and monitor the patient November 13 Pt is seen examined no acute overnight issues ,pt is tolerating po diet well, his hb dropped by 1 gm will repeat this afternoon, he still has dark stools He will have CT chest done today to evaluate his pleural effusions, possible infiltrates, official read pending. Pt will need tunneled cath placement for ongoing Hemodialysis. Pertinent ROS: Denies headache, dizziness Denies chest pain, palpitations Denies cough or shortness of breath Denies abdominal pain, nausea or vomiting. - Constitutional Vitals: Vital Signs Temp Pulse Resp BP Pulse Ox 97.7 F 89 18 111/56 97 11/13/17 12:00 11/13/17 12:00 11/13/17 12:00 11/13/17 12:00 11/13/17 12:00 Period Temp Pulse Resp BP Sys/Kelly Pulse Ox Last 24 Hr 97.6 F-98.9 F 82-94 16-18 104-126/56-72 93-97 Intake and Output 11/13/17 11/13/17 11/13/17 05:59 13:59 21:59 Intake Total 60 / 60 240 / 240 120 / 120 Output Total 600 / 600 560 / 560 Balance -540 / -540 -320 / -320 120 / 120 Intake & Output: Intake & Output 11/13/17 11/13/17 11/13/17 05:59 13:59 21:59 Intake Total 60 / 60 240 / 240 120 / 120 Output Total 600 / 600 560 / 560 Balance -540 / -540 -320 / -320 120 / 120 Intake: Oral 60 / 60 240 / 240 120 / 120 Output: Urine Catheter Amount 600 / 600 560 / 560 Other: Meal Breakfast Lunch Percent of Meal Consumed 75% 100% Feeding Ability Independent Assist with Tray Set Up Stool Color Black Stool Consistency Loose Exam: Constitutional; Afebrile, cooperative, alert, not in distress. Eyes- No icterus, , No periorbital swelling Ears- Ext ear normal, hearing normal to conversation. Neck- Midline trachea, supple Respiratory system: Air Entry equal on both sides ricardo decreased at bases, No crackles or wheezing, no rhonchi. CVS- Rate rhythm regular, S1,S2 heard, no gallop, no rub. Abdomen- Soft nontender abdomen, no organomegaly, no tenderness, no guarding or rigidity, BED RUBBER- AOOx3, moving all extremities, no gross focal deficit noted. Medical - PN: Obj Da - Labs CBC & Chem 7: 11/13/17 13:11 11/13/17 04:00 Labs: Abnormal Lab Results 11/13/17 11/13/17 11/13/17 13:11 10:11 04:00 RBC 3.19 L Hgb 9.0 L Hct 26.9 L RDW 16.0 H Lymph % (Auto) 10.1 L Eos % (Auto) 8.1 H Lymph # (Auto) 0.7 L BUN 69 H Creatinine 4.4 H Calcium 8.0 L Total Protein 5.7 L Albumin 2.6 L Albumin/Globulin Ratio 0.8 L Urine Occult Blood 0.2 A Ur Leukocyte Esterase 25 A Urine RBC 8 H Hyaline Casts 6 H 11/13/17 11/12/17 11/12/17 04:00 05:00 05:00 RBC 3.14 L 3.43 L Hgb 8.8 L 9.8 L Hct 26.6 L 28.8 L RDW 16.0 H 15.6 H Lymph % (Auto) 12.7 L 13.6 L Eos % (Auto) 8.9 H 8.1 H Lymph # (Auto) 0.8 L 0.8 L BUN 63 H Creatinine 4.2 H Calcium 8.0 L Total Protein Albumin 2.5 L Albumin/Globulin Ratio 0.7 L Urine Occult Blood Ur Leukocyte Esterase Urine RBC Hyaline Casts 11/11/17 11/11/17 11/11/17 12:05 08:10 04:00 RBC Hgb 10.0 L 10.5 L Hct RDW Lymph % (Auto) Eos % (Auto) Lymph # (Auto) BUN 62 H Creatinine 4.2 H Calcium 8.0 L Total Protein Albumin Albumin/Globulin Ratio Urine Occult Blood Ur Leukocyte Esterase Urine RBC Hyaline Casts 11/11/17 11/11/17 11/10/17 04:00 00:25 19:52 RBC Hgb 10.2 L 10.2 L 10.0 L Hct RDW Lymph % (Auto) Eos % (Auto) Lymph # (Auto) BUN Creatinine Calcium Total Protein Albumin Albumin/Globulin Ratio Urine Occult Blood Ur Leukocyte Esterase Urine RBC Hyaline Casts 11/10/17 16:38 RBC Hgb 10.9 L Hct RDW Lymph % (Auto) Eos % (Auto) Lymph # (Auto) BUN Creatinine Calcium Total Protein Albumin Albumin/Globulin Ratio Urine Occult Blood Ur Leukocyte Esterase Urine RBC Hyaline Casts Meds: Medications Acetaminophen (Tylenol) 650 mg PO Q4-6HP PRN PRN Reason: PAIN/FEVER > 101 Belladonna/Phenobarbital (Gi Cocktail) 1 dose PO Q4HP PRN PRN Reason: Dyspepsia Dextrose (Dextrose 50%) 0 ml IV UD PRN PRN Reason: Hypoglycemia Diagnostic Test (Pha) (Accu-Chek) 1 each FS ACHS [facility] Last Admin: 11/13/17 12:10 Dose: 1 each Docusate Sodium (Colace) 100 mg PO BID [facility] Last Admin: 11/13/17 08:56 Dose: Not Given Furosemide (Lasix) 40 mg IV Q12 [facility] Stop: 11/17/17 09:59 Last Admin: 11/13/17 08:55 Dose: 40 mg Glucose (Insta-Glucose) 15 gm PO PRN PRN PRN Reason: Hypoglycemia Heparin Sodium (Porcine) (Heparin Flush) 2 ml IV Q12 [facility] Last Admin: 11/13/17 08:54 Dose: 2 ml Magnesium Sulfate (Magnesium Sulfate) 2 gm in 50 mls @ 50 mls/hr IV UD PRN PRN Reason: MG = or < 1.7 Insulin Glargine (Lantus) 15 unit SQ HS [facility] Last Admin: 11/12/17 21:30 Dose: 15 unit Insulin Human Lispro (Humalog) 0 unit SQ ACHS [facility] PRN Reason: Protocol Last Admin: 11/13/17 12:32 Dose: 1 unit Midodrine (Midodrine Hcl) 5 mg PO Q6HP PRN PRN Reason: Hypotension Ondansetron HCl (Zofran) 4 mg IV Q4-6HP PRN PRN Reason: Nausea And Vomiting Pantoprazole Sodium (Protonix) 40 mg IV BIDAC [facility] Last Admin: 11/13/17 08:00 Dose: 40 mg Potassium Chloride (Kdur) 40 meq PO BIDCC [facility] Stop: 11/17/17 09:59 Last Admin: 11/13/17 08:55 Dose: 40 meq Senna/Docusate Sodium (Senna Plus Tablet) 1 tab PO HS [facility] Last Admin: 11/12/17 21:31 Dose: Not Given Sevelamer Carbonate (Renvela) 800 mg PO TIDCC [facility] Last Admin: 11/13/17 12:32 Dose: 800 mg Sodium Chloride (Saline Flush) 10 ml IV UD PRN PRN Reason: FLUSH Sodium Chloride (Saline Flush) 10 ml IV Q12 [facility] Last Admin: 11/13/17 08:05 Dose: 10 ml Medical - PN: A/P - Time Spent With Patient Total time spent is greater than 50% in coordination of care (as documented) at patient's floor/unit and/or counseling patient: - Narrative A/P Narrative: A/P Acute GI bleed-upper GI bleed-due to duodenal ulcer, on twice daily proton pump inhibitors, status post EGD, hemoglobin is stable monitor closely for another 24 hours that can be transferred to floor. No indication for transfusion yet, hb dropped this AM, recheck in pm Acute kidney injury-creatinine is stable managed by nephrology patient is making urine, patient will likely need outpatient dialysis. Will have to plan for tunneled catheter placement according to nephrology Healthcare associated pneumonia-status post antibiotics Pleural Effusions: Get chest CT Altered mental [id number] Diabetes-on prandial insulin on basal insulin, glucose values at goal Hypotension-patient blood pressure is now stable he is off pressors. Midodrine as needed is ordered Pulmonary hypertension follow-up as outpatient Hyperphosphatemia secondary to renal failure on Renvela DVT prophylaxis- SCD Diet Renal Carb consistent Full code Medical - PN: Qual - VTE Deep Vein Thrombosis/Pulmonary Embolism Present on Admission: No
[2017-11-13] MEDS: 0.9 % SODIUM CHLORIDE 10 ML SYRINGE IV PRN (17:08)
[2017-11-13] MEDS: INSULIN GLARGINE, HUMAN 1 UNIT/0.01 ML SQ SCH (21:25)
[2017-11-13] MEDS: SENNOSIDES/DOCUSATE SODIUM 1 TAB TABLET PO SCH (21:28)
[2017-11-14 05:01] LABS: Basophils # (Auto) 0 K/mcL (0.0-0.3); Basophils % (Auto) 0.6 % (0.0-2.0); Eosinophils # (Auto) 0.6 K/mcL (0.0-0.7); Eosinophils % (Auto) 9.4 % (0.0-7.0); Granulocytes % (Auto) 65.2 % (38.0-78.0); Lymphocytes # (Auto) 0.9 K/mcL (1.5-4.8); Lymphocytes % (Auto) 15.4 % (15.5-49.0); Mean Cell Volume 85.7 fL (80.0-100.0); Mean Corpuscular Hemoglobin 28.2 pg (26.0-34.0); Monocytes # (Auto) 0.6 K/mcL (0.1-0.9); Monocytes % (Auto) 9.4 % (1.0-12.0); Platelet Count 254 K/mcL (140-440); RBC 2.96 M/mcL (4.50-5.90)
[2017-11-14 05:47] LABS: ALT/SGPT 21 U/l (0-40); Albumin 2.6 gm/dL (3.2-5.2); Albumin/Globulin Ratio 0.8 (1.0-2.3); Alkaline Phosphatase 107 U/L (39-117); Bilirubin,Direct < 0.2 mg/dL (0.0-0.3); Blood Urea Nitrogen 67 mg/dl (8-23); Gamma Glutamyl Transpeptidase 33 U/L (8-61); Uric Acid 5.8 mg/dL (2.5-8.0)
[2017-11-14 05:50] LABS: Erythrocyte Sedimentation Rate 31 mm/hr (0-15)
--- NOTE | 2017-11-14 06:36 | Nephrology Progress Note ---
Subjective Patient information: Note initiated : 11/14/17 at 6:33 am Brandon Austin is an [id number]-rbg male with coronary artery disease, diabetes mellitus type 2, hypertension, hyperlipidemia admitted on 11/02/17 for recent onset anorexia, dyspnea and weakness for one month. Chief Complaint: Weakness. Principal diagnosis: Acute renal failure, fluid overload Interval history: No new problems. Pertinent ROS: Edema. Sagastume. Weakness. Objective - Vital Signs Vital signs: Vital Signs Temp Pulse Resp BP BP Pulse Ox 11/14/17 04:00 98.9 F 16 123/67 93 11/13/17 23:46 98.8 F 16 107/69 96 11/13/17 20:00 98.5 F 16 154/85 99 11/13/17 19:03 85 97 11/13/17 16:00 97.8 F 96 H 18 122/73 98 11/13/17 12:00 97.7 F 89 18 111/56 97 11/13/17 08:00 98.9 F 85 18 122/66 97 Intake and Output 11/13/17 11/14/17 11/14/17 21:59 05:59 13:59 Intake Total 320 / 320 Output Total 375 / 375 650 / 650 Balance -55 / -55 -650 / -650 Intake: Oral 320 / 320 Output: Urine Catheter Amount 125 / 125 650 / 650 Void Amount 250 / 250 Other: Meal Dinner Percent of Meal Consumed 100% Feeding Ability Assist with Tray Set Up # Bowel Movements 0 Weight 188 lb 8 oz Intake & Output: Intake & Output 11/13/17 11/14/17 11/14/17 21:59 05:59 13:59 Intake Total 320 / 320 Output Total 375 / 375 650 / 650 Balance -55 / -55 -650 / -650 Weight 188 lb 8 oz Intake: Oral 320 / 320 Output: Urine Catheter Amount 125 / 125 650 / 650 Void Amount 250 / 250 Other: Meal Dinner Percent of Meal Consumed 100% Feeding Ability Assist with Tray Set Up # Bowel Movements 0 - General Appearance General appearance: appears started age EENT: mucous membranes moist Neck: supple Respiratory: clear Cardiology: edema Gastrointestinal: no tenderness Integumentary: warm and dry Neurologic: no focal deficit Musculoskeletal: no erythema, no cyanosis Psychiatric: mood/affect appropriate, cooperative - Lab 11/14/17 04:00 11/14/17 04:00 Most recent lab results Calcium 8.2 mg/dl (8.6-10.4) L 11/14/17 04:00 Phosphorus 2.9 mg/dL (2.7-4.5) 11/14/17 04:00 Magnesium 1.9 mg/dL (1.6-2.5) 11/14/17 04:00 Assessment and Plan (1) Acute kidney failure with tubular necrosis Work up: CXR on 11/04/17: Bilateral parenchymal infiltrates and pleural fluid collections. No significant interval change since 11/03/2017 Echo on 11/03/17: LVEF 50-70%, moderate pulmonary hypertension and left pleural effusion. US Renal on 11/03/17: Abnormal resistive index bilaterally. No evidence for renal artery stenosis. US Renal on 11/02/17: No hydronephrosis. Mildly echogenic renal cortex bilaterally consistent with medical renal disease. Urinalysis on 11/02/17: Yellow, hazy, pH 5.0, SG 1.017, protein 30, occult blood negative. Random urine protein / creatinine ratio 11/02/17: Pending. Repeat urinalysis (11/13/17): No protein but, occult blood and leukocytes ( could be due to Sagastume). Urine eosinophils (11/13/17): None. Progress: Hemodialysis on 11/03, 11/04 and 11/07. Urine output 1335 ml reported. Creatinine decreased from 4.4 to 4.1 in the past 24 hours. Edema improving with Furosemide 40 mg IV BID. Discussion: Etiology attributed to acute tubular necrosis from prescription medication change, NSAID use and acute illness. Plan: Monitor dialysis need with renal panel and urine output. No hemodialysis since serum creatinine decreased. Kidney biopsy considered for prognosis (short or fci dialysis need) and diagnosis, however repeat urinalysis unremarkable and creatinine trend down now; will hold. Avoid IV contrast and nephrotoxic medications. Discharge planning: He would need tunneled dialysis catheter (at [facility]) and outpatient hemodialysis arrangement (at [facility]) with acute kidney injury diagnosis at this point. Anticipate improvement of acute kidney injury and discharge without dialysis in 3-5 days. Status: Acute Priority: High (2) Anasarca Furosemide increased to 80 mg IV Q12 and KCl increased to 40 mEq PO TIDCC. Status: Acute Priority: Medium
[2017-11-14] MEDS: 0.9 % SODIUM CHLORIDE 10 ML SYRINGE IV SCH ×3 (07:04→21:16)
[2017-11-14] MEDS: PANTOPRAZOLE 40 MG VIAL IV SCH ×2 (07:04→17:18)
[2017-11-14] MEDS: INSULIN LISPRO 1 UNIT/0.01 ML UNIT SQ SCH ×4 (07:12→20:29)
[2017-11-14] MEDS ORDERED: POTASSIUM CHLORIDE 20 MEQ TABLET PO SCH (08:00)
[2017-11-14] MEDS: DOCUSATE SODIUM 100 MG CAPSULE PO SCH ×2 (08:40→20:18)
[2017-11-14] MEDS: FUROSEMIDE 40 MG/4 ML VIAL IV SCH ×2 (08:41→20:18)
[2017-11-14] MEDS: 0.9 % SODIUM CHLORIDE 10 ML SYRINGE IV PRN ×5 (08:41→17:19)
--- NOTE | 2017-11-14 11:00 | Surgical Pathology Report ---
HISTOLOGY SPECIMEN MICROSCOPIC DIAGNOSIS SPECIMEN A - STOMACH, ANTRUM, BIOPSY: -- GASTRIC ANTRAL MUCOSA WITH MILD CHRONIC INFLAMMATION AND BACKGROUND FEATURES CONSISTENT WITH REACTIVE GASTROPATHY. -- NO HELICOBACTER ORGANISMS IDENTIFIED ON ALCIAN YELLOW STAIN (ADEQUATE TECHNICAL CONTROL). SPECIMEN B - ESOPHAGUS, DISTAL, BIOPSY: -- GASTROESOPHAGEAL JUNCTIONAL MUCOSA WITH MILD CHRONIC INFLAMMATION. -- NO INTESTINAL (GOBLET CELL) METAPLASIA IDENTIFIED ON ALCIAN BLUE STAIN (ADEQUATE TECHNICAL CONTROL). -- SQUAMOUS EPITHELIUM WITH RARE INTRAEPITHELIAL EOSINOPHILS (UP TO 1/hpf). (DMT:[place]) CLINICAL HISTORY Pneumonia; acute renal failure; GI bleeding, probably upper. PROCEDURAL IMPRESSION (?) Helicobacter; hiatal hernia; duodenal ulcer. GROSS DESCRIPTION Specimen A: Received in formalin labeled antral biopsy, are four randle tissue fragments 0.2 to 0.5 cm. Totally submitted - one cassette. Specimen B: Received in formalin labeled distal esophagus, are four pale randle tissue fragments 0.2 to 0.5 cm. Totally submitted - one cassette. (STM:[facility]) Electronically Signed by: Kael Cook M.D.
--- NOTE | 2017-11-14 11:10 | Cat Scan Report ---
CLINICAL INFORMATION: Bilateral pleural effusions, pneumonia. Acute renal failure COMPARISON: None TECHNIQUE: 0.625 mm axial slices were obtained from the lung apices through the bases without intravenous contrast. 2.5 mm Sagittal, coronal and axial reformatted images were processed and reviewed at bone, lung and soft tissue windows. 7 mm axial MIP images were also reconstructed to optimize pulmonary nodule detection.The exam was performed using radiation dose optimization techniques including, but not limited to, automated exposure control, adjustment of the mA and/or kV according to patient size and use of iterative reconstruction technique. FINDINGS: Pulmonary parenchymal windows show large bilateral pleural effusions occupying greater than 50% of the thoracic cavity volume. There result in incomplete compressive atelectasis of the entire left lower lobe, lingula, and subtotal atelectasis of the posterior right lower and upper lobes. There is also complete atelectasis of the right middle lobe which could be due to fibrosis. The aerated anterior portion of the lungs are clear. Mediastinal windows show the heart is normal in size. There is a small high attenuation pericardial effusion. A right IJ double-lumen catheter tip is located in the right atrium - near the tricuspid valve plane. Left-sided PICC line is in satisfactory position. A large hiatal hernia, consisting of nearly the entire stomach, has undergone organoaxial volvulus. There is no hilar or mediastinal adenopathy. The noncontrasted thoracic aorta and pulmonary arteries are normal. Bone windows show mild chronic wedging of the upper thoracic vertebral bodies. Images through the abdomen show a 2.7 cm mass in the superior pole of the left kidney. This was not seen on recent ultrasound because this area was not visible. IMPRESSION: 1. Large bilateral pleural effusions resulting in complete left lower lobe and lingular compressive atelectasis with subtotal compression atelectasis of the right lower lobe and posterior segment of the right upper lobe. There is also complete right middle lobe atelectasis suspect is due to fibrosis (i.e. right middle lobe syndrome) rather than effusion. Consider: bilateral Ultrasound-guided thoracentesis 2. Small high density pericardial effusion 3. Right IJ double-lumen catheter tip lies deep in the right atrium near the tricuspid valve plane. Consider withdrawal 4 cm 4. Large hiatal hernia which has undergone organoaxial volvulus 5. 2.6 cm low-attenuation mass or less likely, atypical cyst in the superior pole of the left kidney. This area could not be visualized on the recent ultrasound. Since the patient is in renal failure, suggest abdominal MRI. Gadolinium use should be suspended if the creatinine clearance is less than 30 Interpreted and Authenticated by: Darius Garnett 11/14/17
[2017-11-14] MEDS: POTASSIUM CHLORIDE 20 MEQ TABLET PO SCH ×2 (12:05→17:17)
[2017-11-14 12:51] LABS: Albumin PEP 2.55 gm/dl (3.1-4.7)
[2017-11-14 16:35] LABS: Basophils # (Auto) 0 K/mcL (0.0-0.3); Basophils % (Auto) 0.4 % (0.0-2.0); Eosinophils # (Auto) 0.5 K/mcL (0.0-0.7); Granulocytes % (Auto) 69.6 % (38.0-78.0); Lymphocytes # (Auto) 0.9 K/mcL (1.5-4.8); Lymphocytes % (Auto) 13.1 % (15.5-49.0); Mean Cell Volume 85.5 fL (80.0-100.0); Mean Corpuscular Hemoglobin 29.1 pg (26.0-34.0); Monocytes # (Auto) 0.7 K/mcL (0.1-0.9); Monocytes % (Auto) 9.9 % (1.0-12.0); Platelet Count 255 K/mcL (140-440); RBC 2.95 M/mcL (4.50-5.90); Red Cell Distribution Width 15.9 % (11.5-14.5)
[2017-11-14] MEDS: INSULIN GLARGINE, HUMAN 1 UNIT/0.01 ML SQ SCH (20:29)
[2017-11-14] MEDS: SENNOSIDES/DOCUSATE SODIUM 1 TAB TABLET PO SCH (21:17)
--- NOTE | 2017-11-14 22:06 | Internal Med Progress Note ---
Medical - PN: Subj Patient information: Note initiated : 11/14/17 at 10:01 pm Service Date, if different from initiated Date: [] Patient: Brandon Austin 82 y/o M admitted on 11/02/17 for Pneumonia/Acute Renal Failure. Interval history: The patient is an 82-year-old gentleman who lives with his , Lorie, at [facility] and has been in his baseline state of health with history of diabetes, hypertension. Over the last few of weeks, he has noticed increasing weight gain to the amount of 60 pounds. Patient has had difficulty voiding and emptying bladder. He, however, denies taking new medications. He had upper respiratory symptoms roughly 2 weeks ago and since then he has had progressive difficulty emptying. he has been trying to alleviate his symptoms with [id number] medications. He denies abdominal pain, bloody urine, bloody stool. He does have associated shortness of breath which has progressed from dyspnea on maximal exertion to dyspnea at rest. He is unable to perform activities of daily living. With increasing concerns, the patient was evaluated at [facility] ER today. Initial workup was significant for bibasilar infiltrates with parapneumonic effusion on chest imaging, along with acute renal failure with a creatinine of 4.3 and potassium 5.4 and a pH of 7.33 on basic panel. Due to lack of availability of beds at [facility], Hospitalist Service at [facility] was consulted. I received the phone sign-out from Dr. Senior, [facility] ED physician, and subsequently accepted the patient based on the above data. The patient on arrival appears stable. He was able to answer most of the questions. He is short of breath, was able to talk in full sentences. He endorses to history as above. He is , but his was not available for further evaluation of history. 11/03 patient seen and examined, overnight events noted, patient was hypotensive overnight, and was started on levophed drip, no icu bed available, hence was on the tele status with the drip. he was moved to icu today, as soon as bed opened, He has had poor urine output, and did not respond to lasix, nephrology following , plan to get temporary cath placed and dialysis to be initiated Echo reviewed, normal lvef, moderate pulm HTN noted pt on levophed, picc to be placed for pressor support On iv antibiotics rocepin, levofloxacin,, d/c same, start on vanco and zosyn CXR shows ricardo infiltrates, and pleural effusion. Renal USG shows abnormal restive indices, but no significant renal artery stenosis 11/04 Patient seen and examined, no acute overnight events, sitting comfortably in the bed. Blood pressure stable still on Levophed drip. The patient responded well to dialysis last night, this morning the patient has some urine output and response to Lasix. He will undergo dialysis again today. Nephrology is following. Like to wean off Levophed as tolerated, chest x-ray shows bilateral infiltrates and bilateral effusions patient is on broad- spectrum antibiotics. 11/05 Patient seen and examined, sitting comfortably in the chair no acute overnight events, still on pressors Levophed is running at 2 mics. The patient denies any acute complaints at this time. He has been making urine since last night and seems to be responding well to Lasix creatinine is trending down. Nephrology following. 11/06 Patient seen examined, no acute overnight events, patient still on pressors pressure was bumped up yesterday and is still at around 5-7 mics. The patient otherwise has no acute complaints. Patient's urine output is good, -1370 over 24 hours yesterday and is -900 today Patient's creatinine bumped up slightly Nephrology does not plan for dialysis today. Chest x-ray shows stable effusions 11/07=- patient seen in room. Multiple family members. Interest family concerns. Patient currently on room air. On 3 mics Levophed. Pressors managed by nephrology. Improving urine output but blood-tinged. No concerns expressed by nursing staff. No telemetry events. 11/08- Patient off pressors. No overnight event. Improving urine output. Hemodialysis ongoing per nephrology. No fever chills or concerns per staff. Family at bedside. Discussed treatment plan and clinical improvement. Transfer to telemetry. 11/09- patient doing well. Family at bedside including daughter and . No overnight events. Feels at baseline. No active concerns. Foleys draining clear urine. No telemetry events currently in sinus. Hemodynamics stable currently off vasopressors. No concerns expressed by nursing staff patient and family. Transfer to medical floor. Case discussed with Dr. Oquendo who nephrology and recommends continuing of hemodialysis and the inpatient management until renal function improves. November 10- ongoing hemodialysis per nephrology. Patient stable. No overnight events. No concerns per staff. patient started experiencing multiple bloody bowels. stat H&H/4 hourly H&H series ordered. started on IV PPI. Transfer to telemetry. Case discussed with GI Dr. Jarquin for urgent upper endoscopy. Likely cause NSAID-induced gastritis versus duodenal ulcer. Cross type and transfuse if hemoglobin drops over 30% or hemoglobin less than 7.5. November 11-patient status post upper endoscopy. On a twice-daily IV PPI. Advanced to [facility] GI. Duodenal ulcer/gastritis/duodenitis likely secondary to NSAIDs. No significant overnight events. Hemoglobin stable at 10.2. no dizziness lightheadedness . One episode of bloody bowel early this morning.creatinine 4.2. November 12 Patient seen and examined, family by the bedside, patient has no complaints sitting comfortably in the bed. Tolerating well. Hemoglobin is stable, no acute bleed reported. Patient has no acute symptoms. Patient still has a Sagastume on, nephrology is monitoring his kidney function, patient will likely need a tunnel catheter according to nephrology and will also need dialysis as an outpatient. Patient's blood pressure remains stable he is off pressors chest x-ray reviewed, no evidence of worsening effusions or new infiltrates. Patient has had 9-10 days of IV antibiotics will stop IV vancomycin and Zosyn and monitor the patient November 13 Pt is seen examined no acute overnight issues ,pt is tolerating po diet well, his hb dropped by 1 gm will repeat this afternoon, he still has dark stools He will have CT chest done today to evaluate his pleural effusions, possible infiltrates, official read pending. Pt will need tunneled cath placement for ongoing Hemodialysis. November 14 Good diuresis. But weight increased, elevated pro-BNP. Cr down to 4.1 from 4.3. Will increase Lasix to 80 mg BID HD on hold. Can probably d/c dialysis cath. Denies significant SOB despite bilateral pleural effusions. No thoracentesis indicated. - Constitutional Vitals: Vital Signs Temp Pulse Resp BP Pulse Ox 98.9 F 101 H 18 141/78 97 11/14/17 20:00 11/14/17 19:00 11/14/17 20:00 11/14/17 20:00 11/14/17 20:00 Period Temp Pulse Resp BP Sys/Kelly Pulse Ox Last 24 Hr 98.4 F-98.9 F 89-101 16-18 107-141/64-78 93-97 Intake and Output 11/14/17 11/14/17 11/15/17 13:59 21:59 05:59 Intake Total 200 / 200 Output Total 675 / 675 Balance 200 / 200 -675 / -675 Weight 179 lb 8 oz Patient Weight 11/15/17 05:59 Weight 179 lb 8 oz Intake & Output: Intake & Output 11/14/17 11/14/17 11/15/17 13:59 21:59 05:59 Intake Total 200 / 200 Output Total 675 / 675 Balance 200 / 200 -675 / -675 Weight 179 lb 8 oz Intake: Oral 200 / 200 Output: Urine Catheter Amount 675 / 675 Other: Meal Lunch Percent of Meal Consumed 50% Feeding Ability Independent Stool Size Moderate Stool Color Black Stool Consistency Loose General appearance: no acute distress - Head Head exam: Present: normal inspection - Respiratory Respiratory exam: Present: decreased breath sounds - Cardiovascular Cardiovascular exam: Present: normal rate and rhythm - GI/Abdominal GI/Abdominal exam: Present: normal bowel sounds, soft - Extremities Exam Extremities exam: Present: pedal edema - Neurological Exam Neurological exam: Present: alert, CN II-XII intact, oriented X3 Medical - PN: Obj Da - Labs CBC & Chem 7: 11/14/17 15:52 11/14/17 04:00 Labs: Abnormal Lab Results 11/14/17 11/14/17 11/14/17 15:52 04:00 04:00 RBC 2.95 L 2.96 L Hgb 8.6 L 8.4 L Hct 25.3 L 25.3 L RDW 15.9 H 16.0 H Lymph % (Auto) 13.1 L 15.4 L Eos % (Auto) 9.4 H Lymph # (Auto) 0.9 L 0.9 L ESR 31 H BUN 67 H Creatinine 4.1 H Glucose 120 H Calcium 8.2 L NT-Pro-B Natriuret Pep 1906.0 H Total Protein 5.8 L Total Protein (PEP) 5.8 L Albumin 2.6 L Albumin (PEP) 2.55 L Albumin/Globulin Ratio 0.8 L Albumin/Globulin (PEP) 0.8 L Urine Occult Blood Ur Leukocyte Esterase Urine RBC Hyaline Casts 11/13/17 11/13/17 11/13/17 13:11 10:11 04:00 RBC 3.19 L Hgb 9.0 L Hct 26.9 L RDW 16.0 H Lymph % (Auto) 10.1 L Eos % (Auto) 8.1 H Lymph # (Auto) 0.7 L ESR BUN 69 H Creatinine 4.4 H Glucose Calcium 8.0 L NT-Pro-B Natriuret Pep Total Protein 5.7 L Total Protein (PEP) Albumin 2.6 L Albumin (PEP) Albumin/Globulin Ratio 0.8 L Albumin/Globulin (PEP) Urine Occult Blood 0.2 A Ur Leukocyte Esterase 25 A Urine RBC 8 H Hyaline Casts 6 H 11/13/17 11/12/17 11/12/17 04:00 05:00 05:00 RBC 3.14 L 3.43 L Hgb 8.8 L 9.8 L Hct 26.6 L 28.8 L RDW 16.0 H 15.6 H Lymph % (Auto) 12.7 L 13.6 L Eos % (Auto) 8.9 H 8.1 H Lymph # (Auto) 0.8 L 0.8 L ESR BUN 63 H Creatinine 4.2 H Glucose Calcium 8.0 L NT-Pro-B Natriuret Pep Total Protein Total Protein (PEP) Albumin 2.5 L Albumin (PEP) Albumin/Globulin Ratio 0.7 L Albumin/Globulin (PEP) Urine Occult Blood Ur Leukocyte Esterase Urine RBC Hyaline Casts Meds: Medications Acetaminophen (Tylenol) 650 mg PO Q4-6HP PRN PRN Reason: PAIN/FEVER > 101 Belladonna/Phenobarbital (Gi Cocktail) 1 dose PO Q4HP PRN PRN Reason: Dyspepsia Dextrose (Dextrose 50%) 0 ml IV UD PRN PRN Reason: Hypoglycemia Diagnostic Test (Pha) (Accu-Chek) 1 each FS ACHS [facility] Last Admin: 11/14/17 20:28 Dose: 1 each Docusate Sodium (Colace) 100 mg PO BID [facility] Last Admin: 11/14/17 20:18 Dose: 100 mg Furosemide (Lasix) 80 mg IV Q12 [facility] Stop: 11/19/17 08:59 Last Admin: 11/14/17 20:18 Dose: 80 mg Glucose (Insta-Glucose) 15 gm PO PRN PRN PRN Reason: Hypoglycemia Heparin Sodium (Porcine) (Heparin Flush) 2 ml IV Q12 [facility] Last Admin: 11/14/17 20:28 Dose: 2 ml Magnesium Sulfate (Magnesium Sulfate) 2 gm in 50 mls @ 50 mls/hr IV UD PRN PRN Reason: MG = or < 1.7 Insulin Glargine (Lantus) 15 unit SQ HS [facility] Last Admin: 11/14/17 20:29 Dose: 15 unit Insulin Human Lispro (Humalog) 0 unit SQ ACHS [facility] PRN Reason: Protocol Last Admin: 11/14/17 20:29 Dose: 6 unit Midodrine (Midodrine Hcl) 5 mg PO Q6HP PRN PRN Reason: Hypotension Ondansetron HCl (Zofran) 4 mg IV Q4-6HP PRN PRN Reason: Nausea And Vomiting Pantoprazole Sodium (Protonix) 40 mg IV BIDAC [facility] Last Admin: 11/14/17 17:18 Dose: 40 mg Potassium Chloride (Kdur) 40 meq PO TIDCC [facility] Last Admin: 11/14/17 17:17 Dose: 40 meq Senna/Docusate Sodium (Senna Plus Tablet) 1 tab PO HS [facility] Last Admin: 11/14/17 21:17 Dose: Not Given Sodium Chloride (Saline Flush) 10 ml IV UD PRN PRN Reason: FLUSH Last Admin: 11/14/17 17:19 Dose: 10 ml Sodium Chloride (Saline Flush) 10 ml IV Q12 [facility] Last Admin: 11/14/17 21:16 Dose: 10 ml Medical - PN: A/P - Time Spent With Patient Total time spent is greater than 50% in coordination of care (as documented) at patient's floor/unit and/or counseling patient: 25 - 35 minutes - Narrative A/P Narrative: A/P Acute GI bleed-upper GI bleed-due to duodenal ulcer, on twice daily proton pump inhibitors, status post EGD, hemoglobin is stable monitor closely for another 24 hours that can be transferred to floor. No indication for transfusion yet, hb dropped this AM, recheck in pm Acute kidney injury-creatinine is stable managed by nephrology patient is making urine. Had HD 11/03--. Diuresing well on Lasix. Cause of ARF uncertain. No evidence of auto-immune disease. SPEP wnl. Cr slightly improving. May reverse without requiring further HD. Healthcare associated pneumonia-status post antibiotics Pleural Effusions: confirmed by CT. No significant SOB. Thoracentesis not indicated at this time Altered mental [id number] Diabetes-on prandial insulin on basal insulin, glucose values at goal Hypotension-patient blood pressure is now stable he is off pressors. Midodrine as needed is ordered Pulmonary hypertension follow-up as outpatient Hyperphosphatemia secondary to renal failure on Renvela DVT prophylaxis- SCD Diet: carb controlled Full code Medical - PN: Qual - VTE Deep Vein Thrombosis/Pulmonary Embolism Present on Admission: No
[2017-11-15 05:52] LABS: Basophils # (Auto) 0.1 K/mcL (0.0-0.3); Basophils % (Auto) 1.4 % (0.0-2.0); Eosinophils # (Auto) 0.6 K/mcL (0.0-0.7); Eosinophils % (Auto) 10.8 % (0.0-7.0); Granulocytes % (Auto) 62.2 % (38.0-78.0); Lymphocytes # (Auto) 0.9 K/mcL (1.5-4.8); Lymphocytes % (Auto) 14.7 % (15.5-49.0); Mean Cell Volume 87.6 fL (80.0-100.0); Mean Corpuscular Hemoglobin 28.9 pg (26.0-34.0); Monocytes # (Auto) 0.6 K/mcL (0.1-0.9); Monocytes % (Auto) 10.9 % (1.0-12.0); Platelet Count 280 K/mcL (140-440); RBC 2.87 M/mcL (4.50-5.90); Red Cell Distribution Width 16.3 % (11.5-14.5)
[2017-11-15 05:59] LABS: ALT/SGPT 24 U/l (0-40); Albumin 2.9 gm/dL (3.2-5.2); Albumin/Globulin Ratio 0.9 (1.0-2.3); Alkaline Phosphatase 119 U/L (39-117); Bilirubin,Direct < 0.2 mg/dL (0.0-0.3); Blood Urea Nitrogen 62 mg/dl (8-23); Gamma Glutamyl Transpeptidase 38 U/L (8-61); Uric Acid 6.3 mg/dL (2.5-8.0)
--- NOTE | 2017-11-15 06:19 | Nephrology Progress Note ---
Subjective Patient information: Note initiated : 11/15/17 at 6:15 am Brandon Austin is an [id number] male with coronary artery disease, diabetes mellitus type 2, hypertension, hyperlipidemia admitted on 11/02/17 for recent onset anorexia, dyspnea and weakness for one month. Chief Complaint: Weakness. Principal diagnosis: Acute renal failure, fluid overload Interval history: No change. Pertinent ROS: Weakness. Edema. No new complaints. Objective - Vital Signs Vital signs: Vital Signs Temp Pulse Resp BP BP Pulse Ox 11/15/17 04:00 99.1 F H 87 16 108/59 94 11/15/17 00:00 98.5 F 20 124/69 97 11/14/17 20:00 98.9 F 18 141/78 97 11/14/17 19:00 101 H 97 11/14/17 15:57 98.4 F 16 127/75 95 11/14/17 11:23 98.4 F 16 125/64 96 11/14/17 07:51 98.7 F 89 18 122/68 95 Intake and Output 11/14/17 11/15/17 11/15/17 21:59 05:59 13:59 Intake Total 50 / 50 Output Total 675 / 675 600 / 600 Balance -675 / -675 -550 / -550 Intake: Oral 50 / 50 Output: Urine Catheter Amount 675 / 675 600 / 600 Other: Stool Size Large Stool Color Brown Black Stool Consistency Soft Formed # Bowel Movements 1 Weight 179 lb 8 oz Intake & Output: Intake & Output 11/14/17 11/15/17 11/15/17 21:59 05:59 13:59 Intake Total 50 / 50 Output Total 675 / 675 600 / 600 Balance -675 / -675 -550 / -550 Weight 179 lb 8 oz Intake: Oral 50 / 50 Output: Urine Catheter Amount 675 / 675 600 / 600 Other: Stool Size Large Stool Color Brown Black Stool Consistency Soft Formed # Bowel Movements 1 - General Appearance General appearance: appears started age EENT: mucous membranes moist Neck: supple Respiratory: clear Cardiology: edema Gastrointestinal: no tenderness Integumentary: warm and dry Neurologic: alert and oriented x3 Musculoskeletal: no erythema, no cyanosis Psychiatric: mood/affect appropriate, cooperative - Lab 11/15/17 04:00 11/15/17 04:00 Most recent lab results Calcium 8.4 mg/dl (8.6-10.4) L 11/15/17 04:00 Phosphorus 3.1 mg/dL (2.7-4.5) 11/15/17 04:00 Magnesium 1.9 mg/dL (1.6-2.5) 11/15/17 04:00 - Allied health notes Allied health notes reviewed: nursing Assessment and Plan (1) Acute kidney failure with tubular necrosis Work up: CXR on 11/04/17: Bilateral parenchymal infiltrates and pleural fluid collections. No significant interval change since 11/03/2017 Echo on 11/03/17: LVEF 50-70%, moderate pulmonary hypertension and left pleural effusion. US Renal on 11/03/17: Abnormal resistive index bilaterally. No evidence for renal artery stenosis. US Renal on 11/02/17: No hydronephrosis. Mildly echogenic renal cortex bilaterally consistent with medical renal disease. Urinalysis on 11/02/17: Yellow, hazy, pH 5.0, SG 1.017, protein 30, occult blood negative. Random urine protein / creatinine ratio 11/02/17: Pending. Repeat urinalysis (11/13/17): No protein but, occult blood and leukocytes ( could be due to Sagastume). Urine eosinophils (11/13/17): TNP. Progress: Hemodialysis on 11/03, 11/04 and 11/07. Urine output 1335 ml reported. Creatinine 4.0 to 4.4 with eGFR 11-13 since last hemodialysis on 11/07. Discussion: Etiology attributed to acute tubular necrosis from prescription medication change, NSAID use and acute illness. Plan: Kidney biopsy considered on 11/16 for prognosis (short or assisted dialysis need) and diagnosis, however repeat urinalysis unremarkable and creatinine trend down now; will hold. Avoid IV contrast and nephrotoxic medications. Discharge planning: He would need tunneled dialysis catheter (at [facility]) and outpatient hemodialysis arrangement (at [facility]) with acute kidney injury diagnosis at this point. Status: Acute Priority: High (2) Anasarca Furosemide 80 mg IV Q12. KCl decreased to 20 mEq PO TIDCC. Status: Acute Priority: Medium
[2017-11-15] MEDS: INSULIN LISPRO 1 UNIT/0.01 ML UNIT SQ SCH ×4 (07:38→20:21)
[2017-11-15] MEDS: PANTOPRAZOLE 40 MG VIAL IV SCH ×2 (08:22→18:10)
[2017-11-15] MEDS: 0.9 % SODIUM CHLORIDE 10 ML SYRINGE IV SCH ×4 (08:23→20:21)
[2017-11-15] MEDS: POTASSIUM CHLORIDE 20 MEQ TABLET PO SCH ×2 (10:21→13:12)
[2017-11-15] MEDS: FUROSEMIDE 40 MG/4 ML VIAL IV SCH (10:21)
[2017-11-15] MEDS: DOCUSATE SODIUM 100 MG CAPSULE PO SCH ×2 (10:21→20:20)
--- NOTE | 2017-11-15 11:54 | XRay Report ---
CLINICAL INFORMATION: Post right thoracentesis COMPARISON: Preprocedure chest x-ray 11/12/2017 FINDINGS: Following right thoracentesis, there is only a tiny residual right pleural effusion. There is no pneumothorax or other complication from the procedure. Large left pleural effusion with compressive atelectasis in the lingula and left lower lobe unchanged. Heart is mildly enlarged, but stable. Mediastinum and pulmonary vessels are normal. Right sided central line tip overlies the right atrium near the tricuspid valve plane IMPRESSION: Following right thoracentesis, only tiny residual right pleural effusion remains. No pneumothorax or other complication Large left pleural effusion with compressive atelectasis of the lingula and left lower lobe - stable. NOTE: Left thoracentesis can be ordered at this time Interpreted and Authenticated by: Darius Garnett 11/15/17
--- NOTE | 2017-11-15 12:58 | Ultrasound Report ---
Ultrasound-guided right thoracentesis CLINICAL INFORMATION: Large bilateral pleural effusions. Right pleural effusion will be evaluated first. Left pleural effusion may be evacuated after this procedure was completed if there are no complication TECHNIQUE: Procedure and risks including possibility of bleeding, infection, and pneumothorax were explained to the patient. They understood and wished to proceed. With the patient in upright position, the fluid was first sonographically localized over the posterior right 10th intercostal space at posterior axillary line. The skin overlying this region was marked, prepped and locally anesthetized with 1% lidocaine using a 25-gauge needle to the level the parietal pleura. An 18-gauge Yueh needle was then advanced under sonographic guidance into the pleural fluid and approximately 2 L of simple appearing transudative fluid was aspirated. Post procedure scanning shows only minimal residual fluid. Patient tolerated procedure well without apparent complication. Follow-up chest x-ray to be obtained IMPRESSION: Successful thoracentesis only 2 L of transudative appearing simple pleural fluid. No apparent complication Interpreted and Authenticated by: Darius Garnett 11/15/17
[2017-11-15] MEDS ORDERED: ACETAMINOPHEN 325 MG TABLET PO PRN (13:38)
[2017-11-15] MEDS ORDERED: MAGNESIUM SULFATE 2 GM/50 ML BAG IV PRN (13:38)
[2017-11-15] MEDS ORDERED: PHENobarb/HYOSCY/ATROPINE/SCOP 1 DOSE BOTTLE PO PRN (13:38)
[2017-11-15] MEDS ORDERED: DEXTROSE 50% 50 ML VIAL IV PRN (13:38)
[2017-11-15] MEDS ORDERED: DEXTROSE 31 GM ORAL.SUSP PO PRN (13:38)
[2017-11-15] MEDS ORDERED: MIDODRINE 5 MG TABLET PO PRN (13:38)
--- NOTE | 2017-11-15 16:05 | Internal Med Progress Note ---
Medical - PN: Subj Patient information: Note initiated : 11/15/17 at 4:02 pm Service Date, if different from initiated Date: [] Patient: Brandon Austin 82 y/o M admitted on 11/02/17 for Pneumonia/Acute Renal Failure. Chief Complaint: [] Interval history: The patient is an 82-year-old gentleman who lives with his , Lorie, at [facility] and has been in his baseline state of health with history of diabetes, hypertension. Over the last few of weeks, he has noticed increasing weight gain to the amount of 60 pounds. Patient has had difficulty voiding and emptying bladder. He, however, denies taking new medications. He had upper respiratory symptoms roughly 2 weeks ago and since then he has had progressive difficulty emptying. he has been trying to alleviate his symptoms with xrdw-oxl-yfjxjkg medications. He denies abdominal pain, bloody urine, bloody stool. He does have associated shortness of breath which has progressed from dyspnea on maximal exertion to dyspnea at rest. He is unable to perform activities of daily living. With increasing concerns, the patient was evaluated at [facility] ER today. Initial workup was significant for bibasilar infiltrates with parapneumonic effusion on chest imaging, along with acute renal failure with a creatinine of 4.3 and potassium 5.4 and a pH of 7.33 on basic panel. Due to lack of availability of beds at [facility], Hospitalist Service at [facility] was consulted. I received the phone sign-out from Dr. Senior, [facility] ED physician, and subsequently accepted the patient based on the above data. The patient on arrival appears stable. He was able to answer most of the questions. He is short of breath, was able to talk in full sentences. He endorses to history as above. He is , but his was not available for further evaluation of history. 11/03 patient seen and examined, overnight events noted, patient was hypotensive overnight, and was started on levophed drip, no icu bed available, hence was on the tele status with the drip. he was moved to icu today, as soon as bed opened, He has had poor urine output, and did not respond to lasix, nephrology following , plan to get temporary cath placed and dialysis to be initiated Echo reviewed, normal lvef, moderate pulm HTN noted pt on levophed, picc to be placed for pressor support On iv antibiotics rocepin, levofloxacin,, d/c same, start on vanco and zosyn CXR shows ricardo infiltrates, and pleural effusion. Renal USG shows abnormal restive indices, but no significant renal artery stenosis 11/04 Patient seen and examined, no acute overnight events, sitting comfortably in the bed. Blood pressure stable still on Levophed drip. The patient responded well to dialysis last night, this morning the patient has some urine output and response to Lasix. He will undergo dialysis again today. Nephrology is following. Like to wean off Levophed as tolerated, chest x-ray shows bilateral infiltrates and bilateral effusions patient is on broad- spectrum antibiotics. 11/05 Patient seen and examined, sitting comfortably in the chair no acute overnight events, still on pressors Levophed is running at 2 mics. The patient denies any acute complaints at this time. He has been making urine since last night and seems to be responding well to Lasix creatinine is trending down. Nephrology following. 11/06 Patient seen examined, no acute overnight events, patient still on pressors pressure was bumped up yesterday and is still at around 5-7 mics. The patient otherwise has no acute complaints. Patient's urine output is good, -1370 over 24 hours yesterday and is -900 today Patient's creatinine bumped up slightly Nephrology does not plan for dialysis today. Chest x-ray shows stable effusions 11/07=- patient seen in room. Multiple family members. Interest family concerns. Patient currently on room air. On 3 mics Levophed. Pressors managed by nephrology. Improving urine output but blood-tinged. No concerns expressed by nursing staff. No telemetry events. 11/08- Patient off pressors. No overnight event. Improving urine output. Hemodialysis ongoing per nephrology. No fever chills or concerns per staff. Family at bedside. Discussed treatment plan and clinical improvement. Transfer to telemetry. 11/09- patient doing well. Family at bedside including daughter and . No overnight events. Feels at baseline. No active concerns. Foleys draining clear urine. No telemetry events currently in sinus. Hemodynamics stable currently off vasopressors. No concerns expressed by nursing staff patient and family. Transfer to medical floor. Case discussed with Dr. Oquendo who nephrology and recommends continuing of hemodialysis and the inpatient management until renal function improves. November 10- ongoing hemodialysis per nephrology. Patient stable. No overnight events. No concerns per staff. patient started experiencing multiple bloody bowels. stat H&H/4 hourly H&H series ordered. started on IV PPI. Transfer to telemetry. Case discussed with GI Dr. Jarquin for urgent upper endoscopy. Likely cause NSAID-induced gastritis versus duodenal ulcer. Cross type and transfuse if hemoglobin drops over 30% or hemoglobin less than 7.5. November 11-patient status post upper endoscopy. On a twice-daily IV PPI. Advanced to [facility]. Duodenal ulcer/gastritis/duodenitis likely secondary to NSAIDs. No significant overnight events. Hemoglobin stable at 10.2. no dizziness lightheadedness . One episode of bloody bowel early this morning.creatinine 4.2. November 12 Patient seen and examined, family by the bedside, patient has no complaints sitting comfortably in the bed. Tolerating well. Hemoglobin is stable, no acute bleed reported. Patient has no acute symptoms. Patient still has a Sagastume on, nephrology is monitoring his kidney function, patient will likely need a tunnel catheter according to nephrology and will also need dialysis as an outpatient. Patient's blood pressure remains stable he is off pressors chest x-ray reviewed, no evidence of worsening effusions or new infiltrates. Patient has had 9-10 days of IV antibiotics will stop IV vancomycin and Zosyn and monitor the patient November 13 Pt is seen examined no acute overnight issues ,pt is tolerating po diet well, his hb dropped by 1 gm will repeat this afternoon, he still has dark stools He will have CT chest done today to evaluate his pleural effusions, possible infiltrates, official read pending. Pt will need tunneled cath placement for ongoing Hemodialysis. November 14 Good diuresis. But weight increased, elevated pro-BNP. Cr down to 4.1 from 4.3. Will increase Lasix to 80 mg BID HD on hold. Can probably d/c dialysis cath. Denies significant SOB despite bilateral pleural effusions. No thoracentesis indicated. November 15 C/O orthopnea last night. R thoracentesis done by IR for 2000 ml No significant change in Cr Weight down to 180 from 188 Hb slightly down, but no evidence of acute bleed - Constitutional Vitals: Vital Signs Temp Pulse Resp BP Pulse Ox 97.8 F 81 16 109/59 93 11/15/17 12:00 11/15/17 12:00 11/15/17 12:00 11/15/17 12:00 11/15/17 12:00 Period Temp Pulse Resp BP Sys/Kelly Pulse Ox Last 24 Hr 97.8 F-99.3 F 81-101 16-24 108-141/59-78 93-97 Intake and Output 11/15/17 11/15/17 11/15/17 05:59 13:59 21:59 Intake Total 50 / 50 240 / 240 Output Total 600 / 600 250 / 250 Balance -550 / -550 -10 / -10 Weight 179 lb 8 oz Patient Weight 11/16/17 05:59 Weight 179 lb 8 oz Intake & Output: Intake & Output 11/15/17 11/15/17 11/15/17 05:59 13:59 21:59 Intake Total 50 / 50 240 / 240 Output Total 600 / 600 250 / 250 Balance -550 / -550 -10 / -10 Weight 179 lb 8 oz Intake: Oral 50 / 50 240 / 240 Output: Urine Catheter Amount 600 / 600 250 / 250 Other: Meal Breakfast Percent of Meal Consumed 50% Feeding Ability Independent Stool Size Large Stool Color Brown Black Stool Consistency Soft Formed # Bowel Movements 1 Medical - PN: Obj Da - Labs CBC & Chem 7: 11/15/17 04:00 11/15/17 04:00 Labs: Abnormal Lab Results 11/15/17 11/15/17 11/15/17 04:00 04:00 04:00 RBC 2.87 L Hgb 8.3 L Hct 25.1 L RDW 16.3 H Lymph % (Auto) 14.7 L Eos % (Auto) 10.8 H Lymph # (Auto) 0.9 L ESR PT 15.3 H INR 1.2 H BUN 62 H Creatinine 4.3 H Glucose Calcium 8.4 L Alkaline Phosphatase 119 H NT-Pro-B Natriuret Pep Total Protein Total Protein (PEP) Albumin 2.9 L Albumin (PEP) Albumin/Globulin Ratio 0.9 L Albumin/Globulin (PEP) Urine Occult Blood Ur Leukocyte Esterase Urine RBC Hyaline Casts 11/14/17 11/14/17 11/14/17 15:52 04:00 04:00 RBC 2.95 L 2.96 L Hgb 8.6 L 8.4 L Hct 25.3 L 25.3 L RDW 15.9 H 16.0 H Lymph % (Auto) 13.1 L 15.4 L Eos % (Auto) 9.4 H Lymph # (Auto) 0.9 L 0.9 L ESR 31 H PT INR BUN 67 H Creatinine 4.1 H Glucose 120 H Calcium 8.2 L Alkaline Phosphatase NT-Pro-B Natriuret Pep 1906.0 H Total Protein 5.8 L Total Protein (PEP) 5.8 L Albumin 2.6 L Albumin (PEP) 2.55 L Albumin/Globulin Ratio 0.8 L Albumin/Globulin (PEP) 0.8 L Urine Occult Blood Ur Leukocyte Esterase Urine RBC Hyaline Casts 11/13/17 11/13/17 11/13/17 13:11 10:11 04:00 RBC 3.19 L Hgb 9.0 L Hct 26.9 L RDW 16.0 H Lymph % (Auto) 10.1 L Eos % (Auto) 8.1 H Lymph # (Auto) 0.7 L ESR PT INR BUN 69 H Creatinine 4.4 H Glucose Calcium 8.0 L Alkaline Phosphatase NT-Pro-B Natriuret Pep Total Protein 5.7 L Total Protein (PEP) Albumin 2.6 L Albumin (PEP) Albumin/Globulin Ratio 0.8 L Albumin/Globulin (PEP) Urine Occult Blood 0.2 A Ur Leukocyte Esterase 25 A Urine RBC 8 H Hyaline Casts 6 H 11/13/17 04:00 RBC 3.14 L Hgb 8.8 L Hct 26.6 L RDW 16.0 H Lymph % (Auto) 12.7 L Eos % (Auto) 8.9 H Lymph # (Auto) 0.8 L ESR PT INR BUN Creatinine Glucose Calcium Alkaline Phosphatase NT-Pro-B Natriuret Pep Total Protein Total Protein (PEP) Albumin Albumin (PEP) Albumin/Globulin Ratio Albumin/Globulin (PEP) Urine Occult Blood Ur Leukocyte Esterase Urine RBC Hyaline Casts Meds: Medications Acetaminophen (Tylenol) 650 mg PO Q4-6HP PRN PRN Reason: PAIN/FEVER > 101 Belladonna/Phenobarbital (Gi Cocktail) 1 dose PO Q4HP PRN PRN Reason: Dyspepsia Carvedilol (Coreg) 3.125 mg PO BIDCC KANDY Dextrose (Dextrose 50%) 0 ml IV UD PRN PRN Reason: Hypoglycemia Diagnostic Test (Pha) (Accu-Chek) 1 each FS ACHS KANDY Docusate Sodium (Colace) 100 mg PO BID KANDY Furosemide (Lasix) 80 mg IV Q12 KANDY Stop: 11/19/17 08:59 Glucose (Insta-Glucose) 15 gm PO PRN PRN PRN Reason: Hypoglycemia Heparin Sodium (Porcine) (Heparin Flush) 2 ml IV Q12 KANDY Magnesium Sulfate (Magnesium Sulfate) 2 gm in 50 mls @ 50 mls/hr IV UD PRN PRN Reason: MG = or < 1.7 Insulin Glargine (Lantus) 15 unit SQ HS KANDY Insulin Human Lispro (Humalog) 0 unit SQ ACHS KANDY PRN Reason: Protocol Midodrine (Midodrine Hcl) 5 mg PO Q6HP PRN PRN Reason: Hypotension Pantoprazole Sodium (Protonix) 40 mg IV BIDAC KANDY Potassium Chloride (Kdur) 20 meq PO QAMCC KANDY Senna/Docusate Sodium (Senna Plus Tablet) 1 tab PO HS KANDY Sodium Chloride (Saline Flush) 10 ml IV UD PRN PRN Reason: FLUSH Sodium Chloride (Saline Flush) 10 ml IV Q12 [facility] Medical - PN: A/P - Time Spent With Patient Total time spent is greater than 50% in coordination of care (as documented) at patient's floor/unit and/or counseling patient: 25 - 35 minutes - Narrative A/P Narrative: A/P + Acute GI bleed-upper GI bleed-due to duodenal ulcer, on proton pump inhibitors , status post EGD 11/10. + Acute kidney injury-nephrology consulted. Had HD 11/03-16-. Diuresing well on Lasix. Cause of ARF uncertain. No evidence of auto-immune disease. SPEP wnl. No improvement in Cr. For renal biopsy 11/16 + Healthcare associated pneumonia-status post antibiotics + Pleural Effusions: confirmed by CT. 11/15: Thoracentesis R for 2000 ml b/o othopnea + Altered mental ysecrd-aukkejpyxjwtwo-[id number] + Diabetes-on prandial insulin on basal insulin, glucose values at goal + Hypotension-patient blood pressure is now stable he is off pressors. Midodrine as needed is ordered + Pulmonary hypertension (50-70 mm Hg) on Echo 3/15. Etiology? Hyperphosphatemia secondary to renal failure on Renvela DVT prophylaxis- SCD Diet: carb controlled Full code Medical - PN: Qual - VTE Deep Vein Thrombosis/Pulmonary Embolism Present on Admission: No
[2017-11-15 16:19] LABS: Appearance,Pleural Fluid CLEAR; Color,Pleural Fluid YELLOW; Nucleated Cells,Pleural Fld 162 /cumm; RBC,Pleural Fluid < 50000 /cumm
[2017-11-15 16:23] LABS: Lymphocytes,Pleural Fluid 13 %
[2017-11-15] MEDS: CARVEDILOL 3.125 MG TABLET PO SCH (18:10)
[2017-11-15] MEDS: SENNOSIDES/DOCUSATE SODIUM 1 TAB TABLET PO SCH (20:20)
[2017-11-15] MEDS: INSULIN GLARGINE, HUMAN 1 UNIT/0.01 ML SQ SCH (20:28)
[2017-11-15] MEDS ORDERED: FUROSEMIDE 40 MG/4 ML VIAL IV SCH (21:00)
[2017-11-16 05:51] LABS: ALT/SGPT 20 U/l (0-40); Albumin 2.4 gm/dL (3.2-5.2); Albumin/Globulin Ratio 0.8 (1.0-2.3); Alkaline Phosphatase 114 U/L (39-117); Bilirubin,Direct < 0.2 mg/dL (0.0-0.3); Blood Urea Nitrogen 63 mg/dl (8-23); Gamma Glutamyl Transpeptidase 34 U/L (8-61); Uric Acid 6.7 mg/dL (2.5-8.0)
[2017-11-16 06:28] LABS: Basophils # (Auto) 0.1 K/mcL (0.0-0.3); Basophils % (Auto) 1.1 % (0.0-2.0); Eosinophils # (Auto) 0.5 K/mcL (0.0-0.7); Eosinophils % (Auto) 8.6 % (0.0-7.0); Granulocytes % (Auto) 66.3 % (38.0-78.0); Lymphocytes # (Auto) 0.9 K/mcL (1.5-4.8); Lymphocytes % (Auto) 17.2 % (15.5-49.0); Mean Cell Volume 88.3 fL (80.0-100.0); Mean Corpuscular Hemoglobin 29.1 pg (26.0-34.0); Monocytes # (Auto) 0.4 K/mcL (0.1-0.9); Monocytes % (Auto) 6.8 % (1.0-12.0); Platelet Count 279 K/mcL (140-440); RBC 2.79 M/mcL (4.50-5.90); Red Cell Distribution Width 16.3 % (11.5-14.5)
[2017-11-16] MEDS: PANTOPRAZOLE 40 MG VIAL IV SCH ×2 (07:02→16:09)
[2017-11-16] MEDS: INSULIN LISPRO 1 UNIT/0.01 ML UNIT SQ SCH ×4 (07:11→20:45)
--- NOTE | 2017-11-16 07:20 | Nephrology Progress Note ---
Subjective Patient information: Note initiated : 11/16/17 at 7:18 am Brandon Austin is an [id number] male with coronary artery disease, diabetes mellitus type 2, hypertension, hyperlipidemia admitted on 11/02/17 for recent onset anorexia, dyspnea and weakness for one month. Chief Complaint: Weakness. Principal diagnosis: Acute renal failure, fluid overload Interval history: No change in the past week. Pertinent ROS: Weakness. Edema. Sagastume. Objective - Vital Signs Vital signs: Vital Signs Temp Pulse Resp BP BP BP Pulse Ox 11/16/17 07:04 98.6 F 81 16 112/69 91 11/16/17 04:20 98.4 F 84 16 102/65 94 11/15/17 23:56 98.0 F 97 H 16 101/64 95 11/15/17 18:51 97.9 F 85 18 102/64 95 11/15/17 16:00 97.8 F 81 16 93 11/15/17 12:00 97.8 F 81 16 109/59 93 Intake and Output 11/15/17 11/16/17 11/16/17 21:59 05:59 13:59 Intake Total 360 / 360 Output Total 650 / 650 950 / 950 Balance -650 / -650 -590 / -590 Intake: Oral 360 / 360 Output: Urine Catheter Amount 650 / 650 950 / 950 Other: Stool Size Small Stool Color Brown Black Stool Consistency Soft # Bowel Movements 1 Weight 176 lb 8 oz Intake & Output: Intake & Output 11/15/17 11/16/17 11/16/17 21:59 05:59 13:59 Intake Total 360 / 360 Output Total 650 / 650 950 / 950 Balance -650 / -650 -590 / -590 Weight 176 lb 8 oz Intake: Oral 360 / 360 Output: Urine Catheter Amount 650 / 650 950 / 950 Other: Stool Size Small Stool Color Brown Black Stool Consistency Soft # Bowel Movements 1 - General Appearance General appearance: appears started age EENT: mucous membranes moist Neck: supple Respiratory: clear Cardiology: edema Gastrointestinal: no tenderness Integumentary: warm and dry Neurologic: no focal deficit, alert and oriented x3 Musculoskeletal: no erythema, no cyanosis Psychiatric: mood/affect appropriate, cooperative - Lab 11/16/17 04:39 11/16/17 04:39 Most recent lab results Calcium 8.0 mg/dl (8.6-10.4) L 11/16/17 04:39 Phosphorus 3.7 mg/dL (2.7-4.5) 11/16/17 04:39 Magnesium 1.9 mg/dL (1.6-2.5) 11/16/17 04:39 Assessment and Plan (1) Acute kidney failure with tubular necrosis Work up: CXR on 11/04/17: Bilateral parenchymal infiltrates and pleural fluid collections. No significant interval change since 11/03/2017 Echo on 11/03/17: LVEF 50-70%, moderate pulmonary hypertension and left pleural effusion. US Renal on 11/03/17: Abnormal resistive index bilaterally. No evidence for renal artery stenosis. US Renal on 11/02/17: No hydronephrosis. Mildly echogenic renal cortex bilaterally consistent with medical renal disease. Urinalysis on 11/02/17: Yellow, hazy, pH 5.0, SG 1.017, protein 30, occult blood negative. Random urine protein / creatinine ratio 11/02/17: Cancelled. Repeat urinalysis (11/13/17): No protein but, occult blood and leukocytes ( could be due to Sagastume). Urine eosinophils (11/13/17): TNP. Progress: Hemodialysis on 11/03, 11/04 and 11/07. Urine output 1675 ml reported. Creatinine 4.0 to 4.4 with eGFR 11-13 since last hemodialysis on 11/07. Discussion: Etiology attributed to acute tubular necrosis from prescription medication change, NSAID use and acute illness. Plan: Kidney biopsy scheduled on 11/16 for prognosis (short or termite control representative dialysis need) and diagnosis, however repeat urinalysis unremarkable and creatinine trend down now; will hold. Avoid IV contrast and nephrotoxic medications. Discharge planning: He would need tunneled dialysis catheter (at [facility]) and outpatient hemodialysis arrangement (at [facility]) with acute kidney injury diagnosis at this point. Status: Acute Priority: High (2) Anasarca Furosemide 80 mg IV Q12 with KCl supplement. Status: Acute Priority: Medium
[2017-11-16] MEDS ORDERED: POTASSIUM CHLORIDE 20 MEQ TABLET PO SCH (08:00)
[2017-11-16] MEDS: FUROSEMIDE 40 MG/4 ML VIAL IV SCH ×2 (08:44→20:43)
[2017-11-16] MEDS: 0.9 % SODIUM CHLORIDE 10 ML SYRINGE IV SCH ×2 (08:44→20:44)
[2017-11-16] MEDS: DOCUSATE SODIUM 100 MG CAPSULE PO SCH ×2 (08:45→20:44)
[2017-11-16] MEDS: CARVEDILOL 3.125 MG TABLET PO SCH ×2 (08:45→16:09)
[2017-11-16] MEDS ORDERED: DEXTROSE 50% 50 ML VIAL IV ONE (09:31)
[2017-11-16] MEDS ORDERED: fentaNYL 100 MCG/2 ML VIAL IV ONE ×2 (15:00)
[2017-11-16] MEDS ORDERED: MIDAZOLAM 2 MG/2 ML VIAL IV ONE (15:00)
--- NOTE | 2017-11-16 15:47 | Ultrasound Report ---
Ultrasound-guided thoracentesis CLINICAL INFORMATION: Large left pleural effusion TECHNIQUE: Procedure and risks including possibility of bleeding, infection, and pneumothorax were explained to the patient. They understood and wished to proceed. With the patient in upright position, the fluid was first sonographically localized over the posterior left 10th intercostal space at posterior axillary line. The skin overlying this region was marked, prepped and locally anesthetized with 1% lidocaine using a 25-gauge needle to the level the parietal pleura. An 18-gauge [employer] needle was then advanced under sonographic guidance into the pleural fluid and approximately 1.9 mm of simple appearing transudative fluid was aspirated. Post procedure scanning shows only minimal residual fluid. Patient tolerated procedure well without apparent complication. Follow-up chest x-ray to be obtained IMPRESSION: Successful thoracentesis yielding 1.9 L of transudative appearing simple pleural fluid. No apparent complication Interpreted and Authenticated by: Darius Garnett 11/16/17
--- NOTE | 2017-11-16 15:55 | Cat Scan Report ---
CLINICAL INFORMATION: Renal failure TECHNIQUE: The procedure and risks including possibility of bleeding, infection, pneumothorax, bowel perforation and inadequate tissue having requiring rebiopsy were explained to the patient. He understood and wished to proceed. He was medicated with Versed and fentanyl intravenously, prior to and during the procedure - please see medication sheet for dosages. Blood pressure and pulse oximeter were monitored. Total sedation time 19 minutes. With the patient in prone position, the inferior pole of the left kidney was localized for biopsy. The skin overlying the inferior pole was marked, prepped and locally anesthetized with 1% lidocaine to the level of the renal capsule using a 25-gauge spinal needle. A 17-gauge Temno needle was placed to the lateral renal cortex - inferior pole of the avascular line of Brodel. Through this guide, an 18-gauge Temno needle was used to obtain five core passes through the cortical and medullary region of the inferior pole. The tissue samples were sent to pathology in a small amount of saline. The needles were then removed. Post procedure scanning shows no hemorrhage or other complication. Patient tolerated well with minimal discomfort IMPRESSION: CT-guided for biopsy of renal parenchymal tissue in the inferior pole of the left kidney. Pathology pending. No apparent complication. Interpreted and Authenticated by: Darius Garnett 11/16/17
--- NOTE | 2017-11-16 16:01 | XRay Report ---
CLINICAL INFORMATION: Post left thoracentesis COMPARISON: 11/15/2017 FINDINGS: Moderate cardiomegaly is unchanged. Mediastinum and pulmonary vessels are normal. Right IJ central catheter and left PICC line are in stable satisfactory position. Following left thoracentesis, only small residual left pleural effusion. No pneumothorax or other complication. The lingula and left lower lobe have almost totally reexpanded with minimal residual patchy atelectasis. On the right side, small pleural effusion has reaccumulated and there is mild/moderate patchy airspace disease in the right middle and lower lobe atelectasis versus infiltrate IMPRESSION: 1. Following left thoracentesis only small residual left pleural effusion. Lingula and left lower lobe rales totally reexpanded with minimal residual atelectasis 2. Slight reaccumulation of right pleural effusion still small. Mild/moderate patchy infiltrate or atelectasis is developing in the right middle and lower lobes Interpreted and Authenticated by: Darius Garnett 11/16/17
--- NOTE | 2017-11-16 17:36 | Surgical Pathology Report ---
HISTOLOGY SPECIMEN MICROSCOPIC DIAGNOSIS KIDNEY, LEFT, BIOPSY: -- SPECIMEN RECEIVED AND SUBMITTED TO [facility] FOR RENAL PATHOLOGY EXAMINATION (GROSS DIAGNOSIS). ([facility]:sln) GROSS DESCRIPTION The specimen is received unfixed and designated left kidney, consists of four randle-brown needle core biopsy fragments measuring from 0.5 to 1.7 cm in length by 0.1 cm in diameter. The specimen is subdivided into glutaraldehyde for electron microscopy, transport media for immunofluorescence, and formalin for light microscopy. The entire specimen is submitted to the [facility] for processing. ([facility]) Electronically Signed by: Sabi Bernal D.O.
[2017-11-16] MEDS: INSULIN GLARGINE, HUMAN 1 UNIT/0.01 ML SQ SCH (20:44)
[2017-11-16] MEDS: SENNOSIDES/DOCUSATE SODIUM 1 TAB TABLET PO SCH (20:44)
--- NOTE | 2017-11-16 23:49 | Internal Med Progress Note ---
Medical - PN: Subj Patient information: Note initiated : 11/16/17 at 11:49 pm Service Date, if different from initiated Date: [] Patient: Brandon Austin 82 y/o M admitted on 11/02/17 for Pneumonia/Acute Renal Failure. Interval history: The patient is an 82-year-old gentleman who lives with his , Lorie, at [facility] and has been in his baseline state of health with history of diabetes, hypertension. Over the last few of weeks, he has noticed increasing weight gain to the amount of 60 pounds. Patient has had difficulty voiding and emptying bladder. He, however, denies taking new medications. He had upper respiratory symptoms roughly 2 weeks ago and since then he has had progressive difficulty emptying. he has been trying to alleviate his symptoms with [id number] medications. He denies abdominal pain, bloody urine, bloody stool. He does have associated shortness of breath which has progressed from dyspnea on maximal exertion to dyspnea at rest. He is unable to perform activities of daily living. With increasing concerns, the patient was evaluated at [facility] ER today. Initial workup was significant for bibasilar infiltrates with parapneumonic effusion on chest imaging, along with acute renal failure with a creatinine of 4.3 and potassium 5.4 and a pH of 7.33 on basic panel. Due to lack of availability of beds at [facility], Hospitalist Service at [facility] was consulted. I received the phone sign-out from Dr. Senior, [facility] ED physician, and subsequently accepted the patient based on the above data. The patient on arrival appears stable. He was able to answer most of the questions. He is short of breath, was able to talk in full sentences. He endorses to history as above. He is , but his was not available for further evaluation of history. 11/03 patient seen and examined, overnight events noted, patient was hypotensive overnight, and was started on levophed drip, no icu bed available, hence was on the tele status with the drip. he was moved to icu today, as soon as bed opened, He has had poor urine output, and did not respond to lasix, nephrology following , plan to get temporary cath placed and dialysis to be initiated Echo reviewed, normal lvef, moderate pulm HTN noted pt on levophed, picc to be placed for pressor support On iv antibiotics rocepin, levofloxacin,, d/c same, start on vanco and zosyn CXR shows ricardo infiltrates, and pleural effusion. Renal USG shows abnormal restive indices, but no significant renal artery stenosis 11/04 Patient seen and examined, no acute overnight events, sitting comfortably in the bed. Blood pressure stable still on Levophed drip. The patient responded well to dialysis last night, this morning the patient has some urine output and response to Lasix. He will undergo dialysis again today. Nephrology is following. Like to wean off Levophed as tolerated, chest x-ray shows bilateral infiltrates and bilateral effusions patient is on broad- spectrum antibiotics. 11/05 Patient seen and examined, sitting comfortably in the chair no acute overnight events, still on pressors Levophed is running at 2 mics. The patient denies any acute complaints at this time. He has been making urine since last night and seems to be responding well to Lasix creatinine is trending down. Nephrology following. 11/06 Patient seen examined, no acute overnight events, patient still on pressors pressure was bumped up yesterday and is still at around 5-7 mics. The patient otherwise has no acute complaints. Patient's urine output is good, -1370 over 24 hours yesterday and is -900 today Patient's creatinine bumped up slightly Nephrology does not plan for dialysis today. Chest x-ray shows stable effusions 11/07=- patient seen in room. Multiple family members. Interest family concerns. Patient currently on room air. On 3 mics Levophed. Pressors managed by nephrology. Improving urine output but blood-tinged. No concerns expressed by nursing staff. No telemetry events. 11/08- Patient off pressors. No overnight event. Improving urine output. Hemodialysis ongoing per nephrology. No fever chills or concerns per staff. Family at bedside. Discussed treatment plan and clinical improvement. Transfer to telemetry. 11/09- patient doing well. Family at bedside including daughter and . No overnight events. Feels at baseline. No active concerns. Foleys draining clear urine. No telemetry events currently in sinus. Hemodynamics stable currently off vasopressors. No concerns expressed by nursing staff patient and family. Transfer to medical floor. Case discussed with Dr. Oquendo who nephrology and recommends continuing of hemodialysis and the inpatient management until renal function improves. November 10- ongoing hemodialysis per nephrology. Patient stable. No overnight events. No concerns per staff. patient started experiencing multiple bloody bowels. stat H&H/4 hourly H&H series ordered. started on IV PPI. Transfer to telemetry. Case discussed with GI Dr. Jarquin for urgent upper endoscopy. Likely cause NSAID-induced gastritis versus duodenal ulcer. Cross type and transfuse if hemoglobin drops over 30% or hemoglobin less than 7.5. November 11-patient status post upper endoscopy. On a twice-daily IV PPI. Advanced to [facility] GI. Duodenal ulcer/gastritis/duodenitis likely secondary to NSAIDs. No significant overnight events. Hemoglobin stable at 10.2. no dizziness lightheadedness . One episode of bloody bowel early this morning.creatinine 4.2. November 12 Patient seen and examined, family by the bedside, patient has no complaints sitting comfortably in the bed. Tolerating well. Hemoglobin is stable, no acute bleed reported. Patient has no acute symptoms. Patient still has a Sagastume on, nephrology is monitoring his kidney function, patient will likely need a tunnel catheter according to nephrology and will also need dialysis as an outpatient. Patient's blood pressure remains stable he is off pressors chest x-ray reviewed, no evidence of worsening effusions or new infiltrates. Patient has had 9-10 days of IV antibiotics will stop IV vancomycin and Zosyn and monitor the patient November 13 Pt is seen examined no acute overnight issues ,pt is tolerating po diet well, his hb dropped by 1 gm will repeat this afternoon, he still has dark stools He will have CT chest done today to evaluate his pleural effusions, possible infiltrates, official read pending. Pt will need tunneled cath placement for ongoing Hemodialysis. November 14 Good diuresis. But weight increased, elevated pro-BNP. Cr down to 4.1 from 4.3. Will increase Lasix to 80 mg BID HD on hold. Can probably d/c dialysis cath. Denies significant SOB despite bilateral pleural effusions. No thoracentesis indicated. November 15 C/O orthopnea last night. R thoracentesis done by IR for 2000 ml No significant change in Cr Weight down to 180 from 188 Hb slightly down, but no evidence of acute bleed November 16: Renal biopsy today S/P L thoracentesis with drainage of 1.9 L Cr up to 4.4. Weight down to 176 lb Will reduce lasix to 40 mg BID Will d/w renal whether to d/c HD catheter - Constitutional Vitals: Vital Signs Temp Pulse Resp BP Pulse Ox 97.9 F 92 H 20 101/64 97 11/16/17 19:38 11/16/17 19:38 11/16/17 19:38 11/16/17 19:38 11/16/17 19:38 Period Temp Pulse Resp BP Sys/Kelly Pulse Ox Last 24 Hr 97.4 F-98.6 F 75-98 16-20 96-126/57-73 91-100 Intake and Output 11/16/17 11/16/17 11/17/17 13:59 21:59 05:59 Intake Total 360 / 360 Output Total 450 / 450 Balance -90 / -90 Intake & Output: Intake & Output 11/16/17 11/16/17 11/17/17 13:59 21:59 05:59 Intake Total 360 / 360 Output Total 450 / 450 Balance -90 / -90 Intake: Oral 360 / 360 Output: Urine Catheter Amount 450 / 450 Other: Meal Dinner Percent of Meal Consumed 100% General appearance: no acute distress - Respiratory Respiratory exam: Present: normal respiratory exam - Cardiovascular Cardiovascular exam: Present: normal rate and rhythm - GI/Abdominal GI/Abdominal exam: Present: normal bowel sounds, soft - Extremities Exam Extremities exam: Present: pedal edema Medical - PN: Obj Da - Labs CBC & Chem 7: 11/16/17 04:39 11/16/17 04:39 Labs: Abnormal Lab Results 11/16/17 11/16/17 11/15/17 04:39 04:39 04:00 RBC 2.79 L Hgb 8.1 L Hct 24.6 L RDW 16.3 H Lymph % (Auto) Eos % (Auto) 8.6 H Lymph # (Auto) 0.9 L ESR PT 15.3 H INR 1.2 H BUN 63 H Creatinine 4.4 H Glucose Calcium 8.0 L Alkaline Phosphatase NT-Pro-B Natriuret Pep Total Protein 5.4 L Total Protein (PEP) Albumin 2.4 L Albumin (PEP) Albumin/Globulin Ratio 0.8 L Albumin/Globulin (PEP) 11/15/17 11/15/17 11/14/17 04:00 04:00 15:52 RBC 2.87 L 2.95 L Hgb 8.3 L 8.6 L Hct 25.1 L 25.3 L RDW 16.3 H 15.9 H Lymph % (Auto) 14.7 L 13.1 L Eos % (Auto) 10.8 H Lymph # (Auto) 0.9 L 0.9 L ESR PT INR BUN 62 H Creatinine 4.3 H Glucose Calcium 8.4 L Alkaline Phosphatase 119 H NT-Pro-B Natriuret Pep Total Protein Total Protein (PEP) Albumin 2.9 L Albumin (PEP) Albumin/Globulin Ratio 0.9 L Albumin/Globulin (PEP) 11/14/17 11/14/17 04:00 04:00 RBC 2.96 L Hgb 8.4 L Hct 25.3 L RDW 16.0 H Lymph % (Auto) 15.4 L Eos % (Auto) 9.4 H Lymph # (Auto) 0.9 L ESR 31 H PT INR BUN 67 H Creatinine 4.1 H Glucose 120 H Calcium 8.2 L Alkaline Phosphatase NT-Pro-B Natriuret Pep 1906.0 H Total Protein 5.8 L Total Protein (PEP) 5.8 L Albumin 2.6 L Albumin (PEP) 2.55 L Albumin/Globulin Ratio 0.8 L Albumin/Globulin (PEP) 0.8 L Meds: Medications Acetaminophen (Tylenol) 650 mg PO Q4-6HP PRN PRN Reason: PAIN/FEVER > 101 Belladonna/Phenobarbital (Gi Cocktail) 1 dose PO Q4HP PRN PRN Reason: Dyspepsia [facility] ([facility]g) [facility] Last Admin: 11/16/17 16:09 Dose: 3.125 mg Dextrose (Dextrose 50%) 0 ml IV UD PRN PRN Reason: Hypoglycemia Diagnostic Test (Pha) (Accu-Chek) 1 each FS ACHS [facility] Last Admin: 11/16/17 20:45 Dose: 1 each Docusate Sodium (Colace) 100 mg PO BID [facility] Last Admin: 11/16/17 20:44 Dose: 100 mg Furosemide (Lasix) 40 mg IV Q12 [facility] Stop: 11/19/17 08:59 Last Admin: 11/16/17 20:43 Dose: 40 mg Glucose (Insta-Glucose) 15 gm PO PRN PRN PRN Reason: Hypoglycemia Heparin Sodium (Porcine) (Heparin Flush) 2 ml IV Q12 [facility] Last Admin: 11/16/17 20:44 Dose: 2 ml Magnesium Sulfate (Magnesium Sulfate) 2 gm in 50 mls @ 50 mls/hr IV UD PRN PRN Reason: MG = or < 1.7 Insulin Glargine (Lantus) 15 unit SQ HS [facility] Last Admin: 11/16/17 20:44 Dose: 15 unit Insulin Human Lispro (Humalog) 0 unit SQ ACHS [facility] PRN Reason: Protocol Last Admin: 11/16/17 20:45 Dose: 4 unit Midodrine (Midodrine Hcl) 5 mg PO Q6HP PRN PRN Reason: Hypotension Pantoprazole Sodium (Protonix) 40 mg IV BIDAC [facility] Last Admin: 11/16/17 16:09 Dose: 40 mg Senna/Docusate Sodium (Senna Plus Tablet) 1 tab PO HS [facility] Last Admin: 11/16/17 20:44 Dose: 1 tab Sodium Chloride (Saline Flush) 10 ml IV UD PRN PRN Reason: FLUSH Sodium Chloride (Saline Flush) 10 ml IV Q12 [facility] Last Admin: 11/16/17 20:44 Dose: 10 ml Medical - PN: A/P - Time Spent With Patient Total time spent is greater than 50% in coordination of care (as documented) at patient's floor/unit and/or counseling patient: 15 - 24 minutes - Narrative A/P Narrative: A/P + Acute GI bleed-upper GI bleed-due to duodenal ulcer, on proton pump inhibitors , status post EGD 11/10. + Acute kidney injury-nephrology consulted. Had HD 11/03--. Diuresing well on Lasix. Cause of ARF uncertain. No evidence of auto-immune disease. SPEP wnl. No improvement in Cr. Renal biopsy 11/16 + Healthcare associated pneumonia-status post antibiotics + Pleural Effusions: confirmed by CT. 11/15: Thoracentesis R for 2000 ml b/o othopnea 11/16: Thoracentesis L for 1900 ml + Altered mental kaagaq-fckmrprswrbqpj-sdvswywa + Diabetes-on prandial insulin on basal insulin, glucose values at goal + Hypotension-patient blood pressure is now stable he is off pressors. Midodrine as needed is ordered + Pulmonary hypertension (50-70 mm Hg) on Echo 11/03. Etiology? Hyperphosphatemia secondary to renal failure on Renvela DVT prophylaxis- SCD Diet: carb controlled Full code Medical - PN: Qual - VTE Deep Vein Thrombosis/Pulmonary Embolism Present on Admission: No
[2017-11-17 06:29] LABS: Basophils # (Auto) 0.1 K/mcL (0.0-0.3); Basophils % (Auto) 0.9 % (0.0-2.0); Eosinophils # (Auto) 0.5 K/mcL (0.0-0.7); Eosinophils % (Auto) 9.1 % (0.0-7.0); Granulocytes % (Auto) 69.2 % (38.0-78.0); Lymphocytes # (Auto) 0.9 K/mcL (1.5-4.8); Lymphocytes % (Auto) 14.9 % (15.5-49.0); Mean Cell Volume 85.9 fL (80.0-100.0); Mean Corpuscular HGB Conc 33.2 g/dL (31.0-36.0); Mean Corpuscular Hemoglobin 28.5 pg (26.0-34.0); Monocytes # (Auto) 0.4 K/mcL (0.1-0.9); Monocytes % (Auto) 5.9 % (1.0-12.0); Platelet Count 283 K/mcL (140-440); Red Cell Distribution Width 17.2 % (11.5-14.5)
[2017-11-17 06:50] LABS: ALT/SGPT 17 U/l (0-40); Albumin 2.4 gm/dL (3.2-5.2); Albumin/Globulin Ratio 0.8 (1.0-2.3); Alkaline Phosphatase 120 U/L (39-117); Bilirubin,Direct < 0.2 mg/dL (0.0-0.3); Blood Urea Nitrogen 63 mg/dl (8-23); Gamma Glutamyl Transpeptidase 32 U/L (8-61); Uric Acid 7.4 mg/dL (2.5-8.0)
[2017-11-17] MEDS ORDERED: INSULIN GLARGINE, HUMAN 1 UNIT/0.01 ML SQ SCH (07:11)
[2017-11-17] MEDS ORDERED: DEXTROSE 50% 50 ML VIAL IV PRN (07:11)
[2017-11-17] MEDS ORDERED: DEXTROSE 31 GM ORAL.SUSP PO PRN (07:11)
[2017-11-17] MEDS: INSULIN LISPRO 1 UNIT/0.01 ML UNIT SQ SCH ×4 (07:21→20:38)
[2017-11-17] MEDS: PANTOPRAZOLE 40 MG VIAL IV SCH ×2 (07:34→16:39)
[2017-11-17] MEDS: CARVEDILOL 3.125 MG TABLET PO SCH ×2 (08:22→16:40)
[2017-11-17] MEDS: 0.9 % SODIUM CHLORIDE 10 ML SYRINGE IV SCH ×2 (08:23→20:37)
[2017-11-17] MEDS: DOCUSATE SODIUM 100 MG CAPSULE PO SCH ×2 (09:26→20:36)
--- NOTE | 2017-11-17 17:20 | Nephrology Progress Note ---
Subjective Patient information: Note initiated : 11/17/17 at 5:15 pm Service Date, if different from initiated Date: [] Patient: Brandon Austin 82 y/o M admitted on 11/02/17 for Pneumonia/Acute Renal Failure. Chief Complaint: [] Principal diagnosis: Acute renal failure, fluid overload Interval history: Patient seen this am no new issues feels ok no SOB, CP, dizziness LE edema much improved s/p renal biopsy yday, no pain or issues at biopsy site Pertinent ROS: as above Objective - Vital Signs Vital signs: Vital Signs Temp Pulse Resp BP BP Pulse Ox 11/17/17 16:00 97.7 F 80 18 114/71 97 11/17/17 12:00 97.7 F 91 H 18 110/72 97 11/17/17 07:37 97.9 F 77 18 113/74 94 11/17/17 04:00 97.4 F 73 18 97/62 91 11/17/17 00:10 97.6 F 93 H 18 101/64 95 11/16/17 19:38 97.9 F 92 H 20 101/64 97 Intake and Output 11/17/17 11/17/17 11/17/17 05:59 13:59 21:59 Intake Total 200 / 200 480 / 480 Output Total 500 / 500 Balance -300 / -300 480 / 480 Intake: Oral 200 / 200 480 / 480 Output: Urine Catheter Amount 500 / 500 Other: Meal Lunch Percent of Meal Consumed 100% Intake & Output: Intake & Output 11/17/17 11/17/17 11/17/17 05:59 13:59 21:59 Intake Total 200 / 200 480 / 480 Output Total 500 / 500 Balance -300 / -300 480 / 480 Intake: Oral 200 / 200 480 / 480 Output: Urine Catheter Amount 500 / 500 Other: Meal Lunch Percent of Meal Consumed 100% - General Appearance General appearance: appears started age, frail EENT: mucous membranes moist Neck: no JVD Respiratory: no scoliosis, clear Cardiology: no rub, edema (trace ), regular rate, regular rhythm Gastrointestinal: no tenderness, no guarding Integumentary: warm and dry Neurologic: no focal deficit, no asterixis, alert and oriented x3 Musculoskeletal: no deformities, no erythema Psychiatric: mood/affect appropriate - Lab 11/17/17 05:00 11/17/17 05:00 Most recent lab results Calcium 8.1 mg/dl (8.6-10.4) L 11/17/17 05:00 Phosphorus 4.4 mg/dL (2.7-4.5) 11/17/17 05:00 Magnesium 1.9 mg/dL (1.6-2.5) 11/17/17 05:00 Assessment and Plan (1) Acute renal failure Patient has ZANDER unclear etiology, likely ATN, renal biopsy done, report awaited renal US shows medical renal disease, renal doppler is negative baseline s.creat 1.3 (07/08) s.creatinine slowly creeping up patient with persistent negative fluid balance since hospitalisation diuretics held today, will follow the urine output and decide if needed on discharge will have TCC placed tomorrow and if no further issues dunia discharge home over the weekend will follow renal labs tomorrow and if continue to get worse will plan for dialysis tomorrow anemia: etiology multifactorial, Hb stable, post renal biopsy, will likely need to initiate aranesp Will follow along Thank you for giving me an opportunity to participate in Mr Austin's medical care, appreciate it Status: Acute Priority: High Qualifiers: Acute renal failure type: unspecified Qualified Code(s): N17.9 - Acute kidney failure, unspecified
--- NOTE | 2017-11-17 17:43 | Internal Med Progress Note ---
Medical - PN: Subj Patient information: Note initiated : 11/17/17 at 5:40 pm Service Date, if different from initiated Date: [] Patient: Brandon Austin 82 y/o M admitted on 11/02/17 for Pneumonia/Acute Renal Failure. Interval history: The patient is an 82-year-old gentleman who lives with his , Lorie, at [facility] and has been in his baseline state of health with history of diabetes, hypertension. Over the last few of weeks, he has noticed increasing weight gain to the amount of 60 pounds. Patient has had difficulty voiding and emptying bladder. He, however, denies taking new medications. He had upper respiratory symptoms roughly 2 weeks ago and since then he has had progressive difficulty emptying. he has been trying to alleviate his symptoms with [id number] medications. He denies abdominal pain, bloody urine, bloody stool. He does have associated shortness of breath which has progressed from dyspnea on maximal exertion to dyspnea at rest. He is unable to perform activities of daily living. With increasing concerns, the patient was evaluated at [facility] ER today. Initial workup was significant for bibasilar infiltrates with parapneumonic effusion on chest imaging, along with acute renal failure with a creatinine of 4.3 and potassium 5.4 and a pH of 7.33 on basic panel. Due to lack of availability of beds at [facility], Hospitalist Service at [facility] was consulted. I received the phone sign-out from Dr. Senior, [facility] ED physician, and subsequently accepted the patient based on the above data. The patient on arrival appears stable. He was able to answer most of the questions. He is short of breath, was able to talk in full sentences. He endorses to history as above. He is , but his was not available for further evaluation of history. 11/03 patient seen and examined, overnight events noted, patient was hypotensive overnight, and was started on levophed drip, no icu bed available, hence was on the tele status with the drip. he was moved to icu today, as soon as bed opened, He has had poor urine output, and did not respond to lasix, nephrology following , plan to get temporary cath placed and dialysis to be initiated Echo reviewed, normal lvef, moderate pulm HTN noted pt on levophed, picc to be placed for pressor support On iv antibiotics rocepin, levofloxacin,, d/c same, start on vanco and zosyn CXR shows ricardo infiltrates, and pleural effusion. Renal USG shows abnormal restive indices, but no significant renal artery stenosis 11/04 Patient seen and examined, no acute overnight events, sitting comfortably in the bed. Blood pressure stable still on Levophed drip. The patient responded well to dialysis last night, this morning the patient has some urine output and response to Lasix. He will undergo dialysis again today. Nephrology is following. Like to wean off Levophed as tolerated, chest x-ray shows bilateral infiltrates and bilateral effusions patient is on broad- spectrum antibiotics. 11/05 Patient seen and examined, sitting comfortably in the chair no acute overnight events, still on pressors Levophed is running at 2 mics. The patient denies any acute complaints at this time. He has been making urine since last night and seems to be responding well to Lasix creatinine is trending down. Nephrology following. 11/06 Patient seen examined, no acute overnight events, patient still on pressors pressure was bumped up yesterday and is still at around 5-7 mics. The patient otherwise has no acute complaints. Patient's urine output is good, -1370 over 24 hours yesterday and is -900 today Patient's creatinine bumped up slightly Nephrology does not plan for dialysis today. Chest x-ray shows stable effusions 11/07=- patient seen in room. Multiple family members. Interest family concerns. Patient currently on room air. On 3 mics Levophed. Pressors managed by nephrology. Improving urine output but blood-tinged. No concerns expressed by nursing staff. No telemetry events. 11/08- Patient off pressors. No overnight event. Improving urine output. Hemodialysis ongoing per nephrology. No fever chills or concerns per staff. Family at bedside. Discussed treatment plan and clinical improvement. Transfer to telemetry. 11/09- patient doing well. Family at bedside including daughter and . No overnight events. Feels at baseline. No active concerns. Foleys draining clear urine. No telemetry events currently in sinus. Hemodynamics stable currently off vasopressors. No concerns expressed by nursing staff patient and family. Transfer to medical floor. Case discussed with Dr. Oquendo who nephrology and recommends continuing of hemodialysis and the inpatient management until renal function improves. November 10- ongoing hemodialysis per nephrology. Patient stable. No overnight events. No concerns per staff. patient started experiencing multiple bloody bowels. stat H&H/4 hourly H&H series ordered. started on IV PPI. Transfer to telemetry. Case discussed with GI Dr. Jarquin for urgent upper endoscopy. Likely cause NSAID-induced gastritis versus duodenal ulcer. Cross type and transfuse if hemoglobin drops over 30% or hemoglobin less than 7.5. November 11-patient status post upper endoscopy. On a twice-daily IV PPI. Advanced to [facility]per GI. Duodenal ulcer/gastritis/duodenitis likely secondary to NSAIDs. No significant overnight events. Hemoglobin stable at 10.2. no dizziness lightheadedness . One episode of bloody bowel early this morning.creatinine 4.2. November 12 Patient seen and examined, family by the bedside, patient has no complaints sitting comfortably in the bed. Tolerating well. Hemoglobin is stable, no acute bleed reported. Patient has no acute symptoms. Patient still has a Sagastume on, nephrology is monitoring his kidney function, patient will likely need a tunnel catheter according to nephrology and will also need dialysis as an outpatient. Patient's blood pressure remains stable he is off pressors chest x-ray reviewed, no evidence of worsening effusions or new infiltrates. Patient has had 9-10 days of IV antibiotics will stop IV vancomycin and Zosyn and monitor the patient November 13 Pt is seen examined no acute overnight issues ,pt is tolerating po diet well, his hb dropped by 1 gm will repeat this afternoon, he still has dark stools He will have CT chest done today to evaluate his pleural effusions, possible infiltrates, official read pending. Pt will need tunneled cath placement for ongoing Hemodialysis. November 14 Good diuresis. But weight increased, elevated pro-BNP. Cr down to 4.1 from 4.3. Will increase Lasix to 80 mg BID HD on hold. Can probably d/c dialysis cath. Denies significant SOB despite bilateral pleural effusions. No thoracentesis indicated. November 15 C/O orthopnea last night. R thoracentesis done by IR for 2000 ml No significant change in Cr Weight down to 180 from 188 Hb slightly down, but no evidence of acute bleed November 16: Renal biopsy today S/P L thoracentesis with drainage of 1.9 L Cr up to 4.4. Weight down to 176 lb Will reduce lasix to 40 mg BID Will d/w renal whether to d/c HD catheter November 17 Denies SOB Weight down from 176 to 171 Cr up 4.4 to 4.6 Will discontinue Lasix for now - Constitutional Vitals: Vital Signs Temp Pulse Resp BP Pulse Ox 97.7 F 80 18 114/71 97 11/17/17 16:00 11/17/17 16:00 11/17/17 16:00 11/17/17 16:00 11/17/17 16:00 Period Temp Pulse Resp BP Sys/Kelly Pulse Ox Last 24 Hr 97.4 F-97.9 F 73-93 18-20 97-114/62-74 91-97 Intake and Output 11/17/17 11/17/17 11/17/17 05:59 13:59 21:59 Intake Total 200 / 200 480 / 480 Output Total 500 / 500 Balance -300 / -300 480 / 480 Intake & Output: Intake & Output 11/17/17 11/17/17 11/17/17 05:59 13:59 21:59 Intake Total 200 / 200 480 / 480 Output Total 500 / 500 Balance -300 / -300 480 / 480 Intake: Oral 200 / 200 480 / 480 Output: Urine Catheter Amount 500 / 500 Other: Meal Lunch Percent of Meal Consumed 100% General appearance: average body habitus, no acute distress - Respiratory Respiratory exam: Present: normal respiratory exam - Cardiovascular Cardiovascular exam: Present: normal rate and rhythm - GI/Abdominal GI/Abdominal exam: Present: normal bowel sounds - Extremities Exam Extremities exam: Present: pedal edema Medical - PN: Obj Da - Labs CBC & Chem 7: 11/17/17 05:00 11/17/17 05:00 Labs: Abnormal Lab Results 11/17/17 11/17/17 11/16/17 05:00 05:00 04:39 RBC 3.00 L Hgb 8.5 L Hct 25.8 L RDW 17.2 H Lymph % (Auto) 14.9 L Eos % (Auto) 9.1 H Lymph # (Auto) 0.9 L PT INR BUN 63 H 63 H Creatinine 4.6 H 4.4 H Glucose 167 H Calcium 8.1 L 8.0 L Alkaline Phosphatase 120 H Total Protein 5.4 L 5.4 L Albumin 2.4 L 2.4 L Albumin/Globulin Ratio 0.8 L 0.8 L 11/16/17 11/15/17 11/15/17 04:39 04:00 04:00 RBC 2.79 L Hgb 8.1 L Hct 24.6 L RDW 16.3 H Lymph % (Auto) Eos % (Auto) 8.6 H Lymph # (Auto) 0.9 L PT 15.3 H INR 1.2 H BUN 62 H Creatinine 4.3 H Glucose Calcium 8.4 L Alkaline Phosphatase 119 H Total Protein Albumin 2.9 L Albumin/Globulin Ratio 0.9 L 11/15/17 04:00 RBC 2.87 L Hgb 8.3 L Hct 25.1 L RDW 16.3 H Lymph % (Auto) 14.7 L Eos % (Auto) 10.8 H Lymph # (Auto) 0.9 L PT INR BUN Creatinine Glucose Calcium Alkaline Phosphatase Total Protein Albumin Albumin/Globulin Ratio Meds: Medications Acetaminophen (Tylenol) 650 mg PO Q4-6HP PRN PRN Reason: PAIN/FEVER > 101 Belladonna/Phenobarbital (Gi Cocktail) 1 dose PO Q4HP PRN PRN Reason: Dyspepsia [facility] Admin: 11/17/17 16:40 Dose: 3.125 mg Dextrose (Dextrose 50%) 0 ml IV UD PRN PRN Reason: Hypoglycemia Diagnostic Test (Pha) (Accu-Chek) 1 each FS [facility] Last Admin: 11/17/17 16:31 Dose: 1 each Docusate Sodium (Colace) 100 mg PO BID [facility] Last Admin: 11/17/17 09:26 Dose: Not Given Glucose (Insta-Glucose) 15 gm PO PRN PRN PRN Reason: Hypoglycemia Heparin Sodium (Porcine) (Heparin Flush) 2 ml IV Q12 [facility] Last Admin: 11/17/17 08:23 Dose: 2 ml Magnesium Sulfate (Magnesium Sulfate) 2 gm in 50 mls @ 50 mls/hr IV UD PRN PRN Reason: MG = or < 1.7 Insulin Glargine (Lantus) 20 unit SQ [facility] Insulin Human Lispro (Humalog) 0 unit SQ [facility] PRN Reason: Protocol Last Admin: 11/17/17 16:32 Dose: 3 unit Midodrine (Midodrine Hcl) 5 mg PO Q6HP PRN PRN Reason: Hypotension Pantoprazole Sodium (Protonix) 40 mg IV BIDAC [facility] Last Admin: 11/17/17 16:39 Dose: 40 mg Senna/Docusate Sodium (Senna Plus Tablet) 1 tab PO HS [facility] Last Admin: 11/16/17 20:44 Dose: 1 tab Sodium Chloride (Saline Flush) 10 ml IV UD PRN PRN Reason: FLUSH Sodium Chloride (Saline Flush) 10 ml IV Q12 [facility] Last Admin: 11/17/17 08:23 Dose: 10 ml Medical - PN: A/P - Time Spent With Patient Total time spent is greater than 50% in coordination of care (as documented) at patient's floor/unit and/or counseling patient: less than 15 minutes - Narrative A/P Narrative: A/P + Acute GI bleed-upper GI bleed-due to duodenal ulcer, on proton pump inhibitors , status post EGD 11/10. + Acute kidney injury-nephrology consulted. Had HD 11/03--. Diuresing well on Lasix. Cause of ARF uncertain. No evidence of auto-immune disease. SPEP wnl. No improvement in Cr. Renal biopsy 11/16: path pending For perm cath placement 11/18 + Healthcare associated pneumonia-status post antibiotics + Pleural Effusions: confirmed by CT. 11/15: Thoracentesis R for 2000 ml b/o othopnea 11/16: Thoracentesis L for 1900 ml + Altered mental [id number] + Diabetes-on prandial insulin on basal insulin, glucose values at goal + Hypotension-patient blood pressure is now stable he is off pressors. Midodrine as needed is ordered + Pulmonary hypertension (50-70 mm Hg) on Echo 11/03. Etiology? Hyperphosphatemia secondary to renal failure on Renvela DVT prophylaxis- SCD Diet: carb controlled Full code Medical - PN: Qual - VTE Deep Vein Thrombosis/Pulmonary Embolism Present on Admission: No
[2017-11-17] MEDS: SENNOSIDES/DOCUSATE SODIUM 1 TAB TABLET PO SCH (20:36)
[2017-11-18 05:30] LABS: Basophils # (Auto) 0 K/mcL (0.0-0.3); Basophils % (Auto) 0.8 % (0.0-2.0); Eosinophils # (Auto) 0.5 K/mcL (0.0-0.7); Eosinophils % (Auto) 8.7 % (0.0-7.0); Granulocytes % (Auto) 59.7 % (38.0-78.0); Lymphocytes # (Auto) 1.2 K/mcL (1.5-4.8); Lymphocytes % (Auto) 22.5 % (15.5-49.0); Mean Cell Volume 85.5 fL (80.0-100.0); Mean Corpuscular HGB Conc 33.9 g/dL (31.0-36.0); Monocytes # (Auto) 0.5 K/mcL (0.1-0.9); Monocytes % (Auto) 8.3 % (1.0-12.0); Platelet Count 275 K/mcL (140-440); RBC 2.92 M/mcL (4.50-5.90)
[2017-11-18 06:05] LABS: ALT/SGPT 18 U/l (0-40); Albumin 2.3 gm/dL (3.2-5.2); Albumin/Globulin Ratio 0.7 (1.0-2.3); Alkaline Phosphatase 113 U/L (39-117); Bilirubin,Direct < 0.2 mg/dL (0.0-0.3); Blood Urea Nitrogen 68 mg/dl (8-23); Gamma Glutamyl Transpeptidase 35 U/L (8-61); Uric Acid 7.5 mg/dL (2.5-8.0)
[2017-11-18] MEDS: PANTOPRAZOLE 40 MG VIAL IV SCH ×2 (07:25→22:05)
[2017-11-18] MEDS: INSULIN LISPRO 1 UNIT/0.01 ML UNIT SQ SCH ×4 (07:26→22:08)
[2017-11-18] MEDS ORDERED: DEXTROSE 50% 50 ML VIAL IV ONE (07:30)
[2017-11-18 08:29] LABS: Iron 19 mcg/dl (61-157); Transferrin % Saturation 8 % (20-50); Unsaturated Iron Binding 199 mcg/dL (112-346)
[2017-11-18 08:34] LABS: Ferritin 66.5 ng/ml (30-400)
[2017-11-18 08:35] LABS: Alpha-2-Globulin 12 %; Pro/Creat Ratio 349 mg/g cre (22-128)
[2017-11-18 08:41] LABS: Vitamin B12 1156 pg/ml (232-1245)
[2017-11-18] MEDS: CARVEDILOL 3.125 MG TABLET PO SCH ×2 (09:13→22:07)
[2017-11-18] MEDS: DOCUSATE SODIUM 100 MG CAPSULE PO SCH ×2 (09:13→22:07)
[2017-11-18] MEDS: 0.9 % SODIUM CHLORIDE 10 ML SYRINGE IV SCH ×2 (09:16→22:09)
[2017-11-18] MEDS ORDERED: IRON SUCROSE COMPLEX 100 MG/5 ML VIAL IV ONE (11:49)
--- NOTE | 2017-11-18 12:01 | Nephrology Progress Note ---
Subjective Patient information: Note initiated : 11/18/17 at 11:52 am Service Date, if different from initiated Date: [] Patient: Brandon Austin 82 y/o M admitted on 11/02/17 for Pneumonia/Acute Renal Failure. Chief Complaint: [] Principal diagnosis: Acute renal failure, fluid overload Interval history: No overnight events had TCC placed this am, denies any complaints no SOB, CP, no edema paul removed was able to urinate no other concerns Pertinent ROS: as above Objective - Vital Signs Vital signs: Vital Signs Temp Pulse Resp BP BP Pulse Ox 11/18/17 10:52 98.7 F 18 106/57 94 11/18/17 06:47 98.6 F 18 110/63 94 11/18/17 04:00 97.7 F 89 18 111/67 92 11/18/17 00:00 97.8 F 71 16 107/70 96 11/17/17 19:51 97.6 F 88 18 106/66 99 11/17/17 16:00 97.7 F 80 18 114/71 97 11/17/17 12:00 97.7 F 91 H 18 110/72 97 Intake and Output 11/17/17 11/18/17 11/18/17 21:59 05:59 13:59 Intake Total 660 / 660 350 / 350 Output Total 400 / 400 150 / 150 Balance 260 / 260 200 / 200 Intake: Oral 660 / 660 350 / 350 Output: Urine Catheter Amount 400 / 400 Void Amount 150 / 150 Other: Meal Dinner Percent of Meal Consumed 75% Feeding Ability Independent Weight 165 lb Intake & Output: Intake & Output 11/17/17 11/18/17 11/18/17 21:59 05:59 13:59 Intake Total 660 / 660 350 / 350 Output Total 400 / 400 150 / 150 Balance 260 / 260 200 / 200 Weight 165 lb Intake: Oral 660 / 660 350 / 350 Output: Urine Catheter Amount 400 / 400 Void Amount 150 / 150 Other: Meal Dinner Percent of Meal Consumed 75% Feeding Ability Independent - General Appearance General appearance: appears started age, frail EENT: mucous membranes moist Neck: no JVD Respiratory: rales (occ ) Cardiology: no rub, edema (+), regular rate, regular rhythm Gastrointestinal: no tenderness, no guarding Integumentary: warm and dry Neurologic: alert and oriented x3 Musculoskeletal: no erythema, no cyanosis Psychiatric: mood/affect appropriate - Lab 11/18/17 04:08 11/18/17 04:08 Most recent lab results Calcium 8.0 mg/dl (8.6-10.4) L 11/18/17 04:08 Phosphorus 4.4 mg/dL (2.7-4.5) 11/18/17 04:08 Magnesium 1.9 mg/dL (1.6-2.5) 11/18/17 04:08 Assessment and Plan (1) Acute renal failure Patient has ZANDER unclear etiology, likely ATN, renal biopsy done, report awaited renal US shows medical renal disease, renal doppler is negative baseline s.creat 1.3 (07/08) s.creatinine slowly creeping up, 4.7 today, BUN is 69 will do HD today, has TCC now for 3.5 hrs using revaclear 300 dialyser, 3K/ 2.5Ca dialysate and minimal UF removal will start on lasix 40mg po daily on discharge as urine output was only 550cc yesterday patient may be discharged home tomorrow from renal perspective patient will monitor his urine output and bring the record for me He will come for outpatient dialysis on Tuesday, will obtain stat labs and review his vitals and urine output and decide regarding need for further dialysis, his family will call me if any concerns in the interim after discharge monitor I/O dose meds to egfr avoid nephrotoxic meds anemia: etiology multifactorial, Hb stable, post renal biopsy,Tsat is low at 9, ferritin is at 66, will initiate IV iron after test dose, will need IV iron loading followed by aranesp to keep Hb above 10 low albumin: will initiate nepro and continue with oral protein supplement on dialysis Will follow along Thank you for giving me an opportunity to participate in Mr Austin's medical care, appreciate it Status: Acute Priority: High Qualifiers: Acute renal failure type: unspecified Qualified Code(s): N17.9 - Acute kidney failure, unspecified
--- NOTE | 2017-11-18 12:24 | Non-GYN Cytology Report ---
NON PIECE GOODS CLERK SPECIMEN NG DX CATEGORY Negative MICROSCOPIC DIAGNOSIS PLEURAL FLUID, RIGHT, THORACENTESIS: -- NEGATIVE FOR ATYPICAL AND MALIGNANT CELLS. -- MIXED INFLAMMATORY CELLS, HISTIOCYTES, AND RARE MESOTHELIAL CELLS. ([facility]) MICROSCOPIC DESCRIPTION Cytologic preparations are of low cellularity and consist predominantly of mixed inflammatory cells with occasional background histiocytes and mesothelial cells. No cytologically atypical or malignant cells are identified. ([facility]) EXTERNAL COMMENT Electronically Signed by: Sabi Bernal D.O.
[2017-11-18 13:02] LABS: Hepatitis B Surface Antigen NEGATIVE (NEGATIVE); Hepatitis C Virus Antibody NON REACTIVE (NEGATIVE)
[2017-11-18 13:07] LABS: Hepatitis B Surface Antibody NEGATIVE (NEGATIVE)
--- NOTE | 2017-11-18 19:16 | Internal Med Progress Note ---
Medical - PN: Subj Patient information: Note initiated : 11/18/17 at 7:13 pm Service Date, if different from initiated Date: [] Patient: Brandon Austin 82 y/o M admitted on 11/02/17 for Pneumonia/Acute Renal Failure. Chief Complaint: [] Interval history: The patient is an 82-year-old gentleman who lives with his , Lorie, at [facility] and has been in his baseline state of health with history of diabetes, hypertension. Over the last few of weeks, he has noticed increasing weight gain to the amount of 60 pounds. Patient has had difficulty voiding and emptying bladder. He, however, denies taking new medications. He had upper respiratory symptoms roughly 2 weeks ago and since then he has had progressive difficulty emptying. he has been trying to alleviate his symptoms with [id number] medications. He denies abdominal pain, bloody urine, bloody stool. He does have associated shortness of breath which has progressed from dyspnea on maximal exertion to dyspnea at rest. He is unable to perform activities of daily living. With increasing concerns, the patient was evaluated at [facility] ER today. Initial workup was significant for bibasilar infiltrates with parapneumonic effusion on chest imaging, along with acute renal failure with a creatinine of 4.3 and potassium 5.4 and a pH of 7.33 on basic panel. Due to lack of availability of beds at [facility], Hospitalist Service at [facility] was consulted. I received the phone sign-out from Dr. Senior, [facility] ED physician, and subsequently accepted the patient based on the above data. The patient on arrival appears stable. He was able to answer most of the questions. He is short of breath, was able to talk in full sentences. He endorses to history as above. He is , but his was not available for further evaluation of history. 11/03 patient seen and examined, overnight events noted, patient was hypotensive overnight, and was started on levophed drip, no icu bed available, hence was on the tele status with the drip. he was moved to icu today, as soon as bed opened, He has had poor urine output, and did not respond to lasix, nephrology following , plan to get temporary cath placed and dialysis to be initiated Echo reviewed, normal lvef, moderate pulm HTN noted pt on levophed, picc to be placed for pressor support On iv antibiotics rocepin, levofloxacin,, d/c same, start on vanco and zosyn CXR shows ricardo infiltrates, and pleural effusion. Renal USG shows abnormal restive indices, but no significant renal artery stenosis 11/04 Patient seen and examined, no acute overnight events, sitting comfortably in the bed. Blood pressure stable still on Levophed drip. The patient responded well to dialysis last night, this morning the patient has some urine output and response to Lasix. He will undergo dialysis again today. Nephrology is following. Like to wean off Levophed as tolerated, chest x-ray shows bilateral infiltrates and bilateral effusions patient is on broad- spectrum antibiotics. 11/05 Patient seen and examined, sitting comfortably in the chair no acute overnight events, still on pressors Levophed is running at 2 mics. The patient denies any acute complaints at this time. He has been making urine since last night and seems to be responding well to Lasix creatinine is trending down. Nephrology following. 11/06 Patient seen examined, no acute overnight events, patient still on pressors pressure was bumped up yesterday and is still at around 5-7 mics. The patient otherwise has no acute complaints. Patient's urine output is good, -1370 over 24 hours yesterday and is -900 today Patient's creatinine bumped up slightly Nephrology does not plan for dialysis today. Chest x-ray shows stable effusions 11/07=- patient seen in room. Multiple family members. Interest family concerns. Patient currently on room air. On 3 mics Levophed. Pressors managed by nephrology. Improving urine output but blood-tinged. No concerns expressed by nursing staff. No telemetry events. 11/08- Patient off pressors. No overnight event. Improving urine output. Hemodialysis ongoing per nephrology. No fever chills or concerns per staff. Family at bedside. Discussed treatment plan and clinical improvement. Transfer to telemetry. 11/09- patient doing well. Family at bedside including daughter and . No overnight events. Feels at baseline. No active concerns. Foleys draining clear urine. No telemetry events currently in sinus. Hemodynamics stable currently off vasopressors. No concerns expressed by nursing staff patient and family. Transfer to medical floor. Case discussed with Dr. Oquendo who nephrology and recommends continuing of hemodialysis and the inpatient management until renal function improves. November 10- ongoing hemodialysis per nephrology. Patient stable. No overnight events. No concerns per staff. patient started experiencing multiple bloody bowels. stat H&H/4 hourly H&H series ordered. started on IV PPI. Transfer to telemetry. Case discussed with GI Dr. Jarquin for urgent upper endoscopy. Likely cause NSAID-induced gastritis versus duodenal ulcer. Cross type and transfuse if hemoglobin drops over 30% or hemoglobin less than 7.5. November 11-patient status post upper endoscopy. On a twice-daily IV PPI. Advanced to [facility]. Duodenal ulcer/gastritis/duodenitis likely secondary to NSAIDs. No significant overnight events. Hemoglobin stable at 10.2. no dizziness lightheadedness . One episode of bloody bowel early this morning.creatinine 4.2. November 12 Patient seen and examined, family by the bedside, patient has no complaints sitting comfortably in the bed. Tolerating well. Hemoglobin is stable, no acute bleed reported. Patient has no acute symptoms. Patient still has a Paul on, nephrology is monitoring his kidney function, patient will likely need a tunnel catheter according to nephrology and will also need dialysis as an outpatient. Patient's blood pressure remains stable he is off pressors chest x-ray reviewed, no evidence of worsening effusions or new infiltrates. Patient has had 9-10 days of IV antibiotics will stop IV vancomycin and Zosyn and monitor the patient November 13 Pt is seen examined no acute overnight issues ,pt is tolerating po diet well, his hb dropped by 1 gm will repeat this afternoon, he still has dark stools He will have CT chest done today to evaluate his pleural effusions, possible infiltrates, official read pending. Pt will need tunneled cath placement for ongoing Hemodialysis. November 14 Good diuresis. But weight increased, elevated pro-BNP. Cr down to 4.1 from 4.3. Will increase Lasix to 80 mg BID HD on hold. Can probably d/c dialysis cath. Denies significant SOB despite bilateral pleural effusions. No thoracentesis indicated. November 15 C/O orthopnea last night. R thoracentesis done by IR for 2000 ml No significant change in Cr Weight down to 180 from 188 Hb slightly down, but no evidence of acute bleed November 16: Renal biopsy today S/P L thoracentesis with drainage of 1.9 L Cr up to 4.4. Weight down to 176 lb Will reduce lasix to 40 mg BID Will d/w renal whether to d/c HD catheter November 17 Denies SOB Weight down from 176 to 171 Cr up 4.4 to 4.6 Will discontinue Lasix for now November 18 Had TCC placed this am No problems with voiding after removal of paul catheter HD well tolerated Was hypoglycemic early am due to NPO status, doing well now. - Constitutional Vitals: Vital Signs Temp Pulse Resp BP Pulse Ox 97.8 F 88 16 109/73 96 11/18/17 17:15 11/18/17 19:00 11/18/17 16:00 11/18/17 19:00 11/18/17 16:00 Period Temp Pulse Resp BP Sys/Kelly Pulse Ox Last 24 Hr 97.6 F-98.7 F 65-89 16-18 92-120/51-73 92-99 Intake and Output 11/18/17 11/18/17 11/18/17 05:59 13:59 21:59 Intake Total 350 / 350 1000 / 1000 Output Total 150 / 150 Balance 200 / 200 1000 / 1000 Intake & Output: Intake & Output 11/18/17 11/18/17 11/18/17 05:59 13:59 21:59 Intake Total 350 / 350 1000 / 1000 Output Total 150 / 150 Balance 200 / 200 1000 / 1000 Intake: Oral 350 / 350 1000 / 1000 Output: Void Amount 150 / 150 Other: Stool Size Moderate Stool Color Brown Stool Consistency Formed # Voids 1 # Bowel Movements 1 Medical - PN: Obj Da - Labs CBC & Chem 7: 11/18/17 04:08 11/18/17 04:08 Labs: Abnormal Lab Results 11/18/17 11/18/17 11/18/17 07:23 04:08 04:08 RBC 2.92 L Hgb 8.5 L Hct 25.0 L RDW 17.0 H Lymph % (Auto) Eos % (Auto) 8.7 H Lymph # (Auto) 1.2 L BUN 68 H Creatinine 4.7 H Glucose 53 L Calcium 8.0 L Iron 19 L TIBC 218 L Transferrin % Sat 8 L Alkaline Phosphatase Total Protein 5.4 L Albumin 2.3 L Albumin/Globulin Ratio 0.7 L U [place] Prot/Creat Ratio 11/17/17 11/17/17 11/16/17 05:00 05:00 04:39 RBC 3.00 L Hgb 8.5 L Hct 25.8 L RDW 17.2 H Lymph % (Auto) 14.9 L Eos % (Auto) 9.1 H Lymph # (Auto) 0.9 L BUN 63 H 63 H Creatinine 4.6 H 4.4 H Glucose 167 H Calcium 8.1 L 8.0 L Iron TIBC Transferrin % Sat Alkaline Phosphatase 120 H Total Protein 5.4 L 5.4 L Albumin 2.4 L 2.4 L Albumin/Globulin Ratio 0.8 L 0.8 L [place] Prot/Creat Ratio 11/16/17 11/13/17 04:39 12:08 RBC 2.79 L Hgb 8.1 L Hct 24.6 L RDW 16.3 H Lymph % (Auto) Eos % (Auto) 8.6 H Lymph # (Auto) 0.9 L BUN Creatinine Glucose Calcium Iron TIBC Transferrin % Sat Alkaline Phosphatase Total Protein Albumin Albumin/Globulin Ratio [place] Prot/Creat Ratio 349 H Meds: Medications Acetaminophen (Tylenol) 650 mg PO Q4-6HP PRN PRN Reason: PAIN/FEVER > 101 Belladonna/Phenobarbital (Gi Cocktail) 1 dose PO Q4HP PRN PRN Reason: Dyspepsia [facility] Last Admin: 11/18/17 09:13 Dose: 3.125 mg Dextrose (Dextrose 50%) 0 ml IV UD PRN PRN Reason: Hypoglycemia Last Admin: 11/18/17 07:24 Dose: 50 ml Diagnostic Test (Pha) (Accu-Chek) 1 each FS ACHS [facility] Last Admin: 11/18/17 16:50 Dose: 1 each Docusate Sodium (Colace) 100 mg PO BID [facility] Last Admin: 11/18/17 09:13 Dose: 100 mg Furosemide (Lasix) 40 mg PO DAILY [facility] Glucose (Insta-Glucose) 15 gm PO PRN PRN PRN Reason: Hypoglycemia Heparin Sodium (Porcine) (Heparin Flush) 2 ml IV Q12 [facility] Last Admin: 11/18/17 09:16 Dose: 2 ml Magnesium Sulfate (Magnesium Sulfate) 2 gm in 50 mls @ 50 mls/hr IV UD PRN PRN Reason: MG = or < 1.7 Insulin Glargine (Lantus) 14 unit SQ HS [facility] Insulin Human Lispro (Humalog) 0 unit SQ ACHS KANDY PRN Reason: Protocol Last Admin: 11/18/17 16:49 Dose: 9 unit Midodrine (Midodrine Hcl) 5 mg PO Q6HP PRN PRN Reason: Hypotension Pantoprazole Sodium (Protonix) 40 mg IV BIDAC [facility] Last Admin: 11/18/17 07:25 Dose: 40 mg Senna/Docusate Sodium (Senna Plus Tablet) 1 tab PO HS [facility] Last Admin: 11/17/17 20:36 Dose: 1 tab Sodium Chloride (Saline Flush) 10 ml IV UD PRN PRN Reason: FLUSH Sodium Chloride (Saline Flush) 10 ml IV Q12 [facility] Last Admin: 11/18/17 09:16 Dose: 10 ml Medical - PN: A/P - Time Spent With Patient Total time spent is greater than 50% in coordination of care (as documented) at patient's floor/unit and/or counseling patient: 15 - 24 minutes - Narrative A/P Narrative: A/P + Acute GI bleed-upper GI bleed-due to duodenal ulcer, on proton pump inhibitors , status post EGD 11/10. + Acute kidney injury-nephrology consulted. Had HD 11/03--. Diuresing well on Lasix. Cause of ARF uncertain. No evidence of auto-immune disease. SPEP wnl. No improvement in Cr. Renal biopsy 11/16: path pending TCC placement 11/18 + Healthcare associated pneumonia-status post antibiotics + Pleural Effusions: confirmed by CT. 11/15: Thoracentesis R for 2000 ml b/o othopnea 11/16: Thoracentesis L for 1900 ml + Altered mental [id number] + Diabetes-on prandial insulin on basal insulin, glucose values at goal + Hypotension-patient blood pressure is now stable he is off pressors. Midodrine as needed is ordered + Pulmonary hypertension (50-70 mm Hg) on Echo 11/03. Etiology? Hyperphosphatemia secondary to renal failure on Renvela DVT prophylaxis- SCD Diet: carb controlled Full code Medical - PN: Qual - VTE Deep Vein Thrombosis/Pulmonary Embolism Present on Admission: No
[2017-11-18] MEDS ORDERED: INSULIN GLARGINE, HUMAN 1 UNIT/0.01 ML SQ SCH (21:00)
[2017-11-18] MEDS: SENNOSIDES/DOCUSATE SODIUM 1 TAB TABLET PO SCH (22:07)
[2017-11-19 05:49] LABS: Basophils # (Auto) 0.1 K/mcL (0.0-0.3); Eosinophils # (Auto) 0.4 K/mcL (0.0-0.7); Eosinophils % (Auto) 8.1 % (0.0-7.0); Granulocytes % (Auto) 65.2 % (38.0-78.0); Mean Cell Volume 85.3 fL (80.0-100.0); Mean Corpuscular HGB Conc 33.1 g/dL (31.0-36.0); Mean Corpuscular Hemoglobin 28.2 pg (26.0-34.0); Monocytes # (Auto) 0.4 K/mcL (0.1-0.9); Monocytes % (Auto) 7.7 % (1.0-12.0); Platelet Count 215 K/mcL (140-440); RBC 2.95 M/mcL (4.50-5.90); Red Cell Distribution Width 17.3 % (11.5-14.5)
[2017-11-19 06:14] LABS: ALT/SGPT 17 U/l (0-40); Albumin 2.4 gm/dL (3.2-5.2); Albumin/Globulin Ratio 0.8 (1.0-2.3); Alkaline Phosphatase 119 U/L (39-117); Bilirubin,Direct < 0.2 mg/dL (0.0-0.3); Blood Urea Nitrogen 38 mg/dl (8-23); Gamma Glutamyl Transpeptidase 33 U/L (8-61); Uric Acid 4.8 mg/dL (2.5-8.0)
[2017-11-19] MEDS: PANTOPRAZOLE 40 MG VIAL IV SCH (07:08)
[2017-11-19] MEDS: INSULIN LISPRO 1 UNIT/0.01 ML UNIT SQ SCH ×2 (07:08→12:19)
[2017-11-19] MEDS: 0.9 % SODIUM CHLORIDE 10 ML SYRINGE IV SCH ×5 (07:09→09:11)
[2017-11-19] MEDS ORDERED: ONDANSETRON ODT 4 MG TABLET SL PRN (07:09)
[2017-11-19] MEDS ORDERED: FUROSEMIDE 40 MG TABLET PO SCH (09:00)
[2017-11-19] MEDS: CARVEDILOL 3.125 MG TABLET PO SCH (09:10)
[2017-11-19] MEDS: DOCUSATE SODIUM 100 MG CAPSULE PO SCH (09:10)
[2017-11-19] MEDS: 0.9 % SODIUM CHLORIDE 10 ML SYRINGE IV PRN ×2 (09:14→09:17)
--- NOTE | 2017-11-19 09:22 | Discharge Summary ---
Medical - DS: Prov Patient information: Note initiated : 11/19/17 at 8:58 am Service Date, if different from initiated Date: [] Patient: Brandon Austin 82 y/o M admitted on 11/02/17 for Pneumonia/Acute Renal Failure. Chief Complaint: [weakness, generalized swelling and SOB] Date of admission: 11/02/17 14:42 Discharge date: 11/19/17 Primary care physician: Aneesh Sanchez Consults: 11/02/17 15:06 Consult to Physician [CONS] Routine Comment: Consulting Provider: Katie Ames Reason For Exam: Physician to Consult 11/08/17 12:03 Consult to Physician [CONS] Routine Comment: Consulting Provider: [facility] Reason For Exam: Physician to Consult 11/10/17 13:44 Consult to Physician [CONS] Routine Comment: Consulting Provider: Roni Davies Reason For Exam: Physician to Consult Medical - DS: Meds - Discharge Medications Prescriptions: Aspirin 81 mg PO DAILY #90 tab.chew Dextrose [Insta-Glucose] 15 gm PO PRN PRN #30 oral.susp PRN Reason: Hypoglycemia Furosemide [Lasix] 40 mg PO DAILY #90 tablet Ondansetron HCl [Zofran ODT] 4 mg SL Q6HP PRN #30 tablet PRN Reason: Nausea Pantoprazole [Protonix] 40 mg PO QAMAC #90 tablet sitaGLIPtin PHOSPHATE [Januvia] 25 mg PO DAILY #90 tablet Active and Home Medications: Home Medications Alpha Lipoic Acid 600 mg PO DAILY 11/02/17 [History Confirmed 11/02/17 Last Taken Unknown] Carvedilol [Coreg] 3.125 mg PO BID 11/02/17 [History Confirmed 11/02/17 Last Taken Unknown] Klor-Con M10 1 tab PO QAM 11/02/17 [History Confirmed 11/02/17 Last Taken Unknown] Moexipril [Univasc] 15 mg PO DAILY 11/02/17 [History Confirmed 11/02/17 Last Taken Unknown] Mlaiy-Dnnmoqx-Uilgeqyl Tablet 1 tab PO DAILY 11/02/17 [History Confirmed Last Taken Unknown] Plavix 75 mg PO DAILY 11/02/17 [History Confirmed 11/02/17 Last Taken 11/02/17 07:00] Ranitidine HCl [Acid Cane Flume Watcher] 150 mg PO DAILY 11/02/17 [History Confirmed Last Taken 11/02/17 07:00] Spironolactone 25 mg PO 1200 11/02/17 [History Confirmed 11/02/17 Last Taken 12:00] Torsemide 20 mg PO QAM 11/02/17 [History Confirmed 11/02/17 Last Taken Unknown] Vitamin E 400 mg PO DAILY 11/02/17 [History Confirmed 11/02/17 Last Taken Unknown] glipiZIDE [Glipizide ER] 10 mg PO DAILY 11/02/17 [History Confirmed 11/02/17 Last Taken Unknown] metFORMIN HCL [Glucophage] 500 mg PO BID 11/02/17 [History Confirmed 11/02/17 Last Taken Unknown] Medical - DS: Hosp Hospital course: Patient: Brandon Austin 82 y/o M admitted on 11/02/17 for Pneumonia/Acute Renal Failure. The patient is an 82-year-old gentleman who lives with his , Lorie, at [facility] and has been in his baseline state of health with history of diabetes, hypertension. Over the last few of weeks, he has noticed increasing weight gain to the amount of 60 pounds. Patient has had difficulty voiding and emptying bladder. He, however, denies taking new medications. He had upper respiratory symptoms roughly 2 weeks ago and since then he has had progressive difficulty emptying. he has been trying to alleviate his symptoms with wncz-bct-mfeqzut medications. He denies abdominal pain, bloody urine, bloody stool. He does have associated shortness of breath which has progressed from dyspnea on maximal exertion to dyspnea at rest. He is unable to perform activities of daily living. With increasing concerns, the patient was evaluated at [facility] ER today. Initial workup was significant for bibasilar infiltrates with parapneumonic effusion on chest imaging, along with acute renal failure with a creatinine of 4.3 and potassium 5.4 and a pH of 7.33 on basic panel. Due to lack of availability of beds at [facility], Hospitalist Service at [facility] was consulted. I received the phone sign-out from Dr. Senior, [facility] ED physician, and subsequently accepted the patient based on the above data. The patient on arrival appears stable. He was able to answer most of the questions. He is short of breath, was able to talk in full sentences. He endorses to history as above. He is , but his was not available for further evaluation of history. 11/03 patient seen and examined, overnight events noted, patient was hypotensive overnight, and was started on levophed drip, no icu bed available, hence was on the tele status with the drip. he was moved to icu today, as soon as bed opened, He has had poor urine output, and did not respond to lasix, nephrology following , plan to get temporary cath placed and dialysis to be initiated Echo reviewed, normal lvef, moderate pulm HTN noted pt on levophed, picc to be placed for pressor support On iv antibiotics rocepin, levofloxacin,, d/c same, start on vanco and zosyn CXR shows ircardo infiltrates, and pleural effusion. Renal USG shows abnormal restive indices, but no significant renal artery stenosis 11/04 Patient seen and examined, no acute overnight events, sitting comfortably in the bed. Blood pressure stable still on Levophed drip. The patient responded well to dialysis last night, this morning the patient has some urine output and response to Lasix. He will undergo dialysis again today. Nephrology is following. Like to wean off Levophed as tolerated, chest x-ray shows bilateral infiltrates and bilateral effusions patient is on broad- spectrum antibiotics. 11/05 Patient seen and examined, sitting comfortably in the chair no acute overnight events, still on pressors Levophed is running at 2 mics. The patient denies any acute complaints at this time. He has been making urine since last night and seems to be responding well to Lasix creatinine is trending down. Nephrology following. 11/06 Patient seen examined, no acute overnight events, patient still on pressors pressure was bumped up yesterday and is still at around 5-7 mics. The patient otherwise has no acute complaints. Patient's urine output is good, -1370 over 24 hours yesterday and is -900 today Patient's creatinine bumped up slightly Nephrology does not plan for dialysis today. Chest x-ray shows stable effusions 11/07=- patient seen in room. Multiple family members. Interest family concerns. Patient currently on room air. On 3 mics Levophed. Pressors managed by nephrology. Improving urine output but blood-tinged. No concerns expressed by nursing staff. No telemetry events. 11/08- Patient off pressors. No overnight event. Improving urine output. Hemodialysis ongoing per nephrology. No fever chills or concerns per staff. Family at bedside. Discussed treatment plan and clinical improvement. Transfer to telemetry. 11/09- patient doing well. Family at bedside including daughter and . No overnight events. Feels at baseline. No active concerns. Foleys draining clear urine. No telemetry events currently in sinus. Hemodynamics stable currently off vasopressors. No concerns expressed by nursing staff patient and family. Transfer to medical floor. Case discussed with Dr. Oquendo who nephrology and recommends continuing of hemodialysis and the inpatient management until renal function improves. November 10- ongoing hemodialysis per nephrology. Patient stable. No overnight events. No concerns per staff. patient started experiencing multiple bloody bowels. stat H&H/4 hourly H&H series ordered. started on IV PPI. Transfer to telemetry. Case discussed with GI Dr. Jarquin for urgent upper endoscopy. Likely cause NSAID-induced gastritis versus duodenal ulcer. Cross type and transfuse if hemoglobin drops over 30% or hemoglobin less than 7.5. November 11-patient status post upper endoscopy. On a twice-daily IV PPI. Advanced to clearsper GI. Duodenal ulcer/gastritis/duodenitis likely secondary to NSAIDs. No significant overnight events. Hemoglobin stable at 10.2. no dizziness lightheadedness . One episode of bloody bowel early this morning.creatinine 4.2. November 12 Patient seen and examined, family by the bedside, patient has no complaints sitting comfortably in the bed. Tolerating well. Hemoglobin is stable, no acute bleed reported. Patient has no acute symptoms. Patient still has a Paul on, nephrology is monitoring his kidney function, patient will likely need a tunnel catheter according to nephrology and will also need dialysis as an outpatient. Patient's blood pressure remains stable he is off pressors chest x-ray reviewed, no evidence of worsening effusions or new infiltrates. Patient has had 9-10 days of IV antibiotics will stop IV vancomycin and Zosyn and monitor the patient November 13 Pt is seen examined no acute overnight issues ,pt is tolerating po diet well, his hb dropped by 1 gm will repeat this afternoon, he still has dark stools He will have CT chest done today to evaluate his pleural effusions, possible infiltrates, official read pending. Pt will need tunneled cath placement for ongoing Hemodialysis. November 14 Good diuresis. But weight increased, elevated pro-BNP. Cr down to 4.1 from 4.3. Will increase Lasix to 80 mg BID HD on hold. Can probably d/c dialysis cath. Denies significant SOB despite bilateral pleural effusions. No thoracentesis indicated. November 15 C/O orthopnea last night. R thoracentesis done by IR for 2000 ml No significant change in Cr Weight down to 180 from 188 Hb slightly down, but no evidence of acute bleed November 16: Renal biopsy today S/P L thoracentesis with drainage of 1.9 L Cr up to 4.4. Weight down to 176 lb Will reduce lasix to 40 mg BID Will d/w renal whether to d/c HD catheter November 17 Denies SOB Weight down from 176 to 171 Cr up 4.4 to 4.6 Will discontinue Lasix for now November 18 Had TCC placed this am No problems with voiding after removal of paul catheter HD well tolerated Was hypoglycemic early am due to NPO status, doing well now. November 19: HD yesterday well tolerated, but had nausea afterwards. BS early am was 50 on Lantus 14 U HS This am is feeling well, but has poor appetite. Looking forward to going home. Family at bedside. Medication reconciliation done: Changes include: Stop Metformin and Glipizide Januvia 25 mg daily Take and record BS before meals at least twice daily Lasix 40 mg daily Continue usual meds Take BP every am. If SBP less than 100, do not take Carvedilol Stopped Plavix till cleared by GI specialist, take baby aspirin in meantime Stopped other meds (see list) Discharge diagnosis: Acute renal failure, type 2 DM, Pneumonia, Upper GI bleeding Secondary discharge diagnosis: CAD HTN Reason for admission: Weakness, generalized swelling, and shortness of breath Pertinent studies/significant findings: US kidneys: no hydronephrosis CT-CHEST: IMPRESSION: 1. Large bilateral pleural effusions resulting in complete left lower lobe and lingular compressive atelectasis with subtotal compression atelectasis of the right lower lobe and posterior segment of the right upper lobe. There is also complete right middle lobe atelectasis suspect is due to fibrosis (i.e. right middle lobe syndrome) rather than effusion. Consider: bilateral Ultrasound-guided thoracentesis 2. Small high density pericardial effusion 3. Right IJ double-lumen catheter tip lies deep in the right atrium near the tricuspid valve plane. Consider withdrawal 4 cm 4. Large hiatal hernia which has undergone organoaxial volvulus 5. 2.6 cm low-attenuation mass or less likely, atypical cyst in the superior pole of the left kidney. This area could not be visualized on the recent ultrasound. Since the patient is in renal failure, suggest abdominal MRI. Gadolinium use should be suspended if the creatinine clearance is less than 30 ECHO: LVEF is wnl Moderate pulmonary hypertension 50-70 mm hg - Time Spent with Patient Total time spent providing and/or coordinating discharge services: Greater than 30 minutes Medical - DS: Exam - Constitutional Vitals: Vital Signs Temp Pulse Pulse Resp BP BP BP 11/19/17 07:04 98.9 F 16 96/60 11/19/17 04:00 97.6 F 75 18 101/56 11/19/17 00:26 97.5 F 67 18 101/57 11/18/17 22:00 97.6 F 65 16 107/64 11/18/17 20:45 98.2 F 78 101/65 11/18/17 20:30 72 95/61 11/18/17 20:15 70 107/50 11/18/17 20:00 74 103/55 11/18/17 19:45 78 118/66 11/18/17 19:30 88 100/68 11/18/17 19:15 70 102/67 11/18/17 19:00 88 109/73 11/18/17 18:45 87 115/69 11/18/17 18:30 82 99/55 11/18/17 18:15 70 102/61 11/18/17 18:00 72 95/51 11/18/17 17:45 65 95/57 11/18/17 17:30 66 92/56 11/18/17 17:15 97.8 F 70 120/65 11/18/17 16:00 97.8 F 68 16 104/69 11/18/17 10:52 98.7 F 18 106/57 Pulse Ox 11/19/17 07:04 93 11/19/17 04:00 93 11/19/17 00:26 93 11/18/17 22:00 96 11/18/17 20:45 11/18/17 20:30 11/18/17 20:15 11/18/17 20:00 11/18/17 19:45 11/18/17 19:30 11/18/17 19:15 11/18/17 19:00 11/18/17 18:45 11/18/17 18:30 11/18/17 18:15 11/18/17 18:00 11/18/17 17:45 11/18/17 17:30 11/18/17 17:15 11/18/17 16:00 96 11/18/17 10:52 94 Intake and Output 11/18/17 11/19/17 11/19/17 21:59 05:59 13:59 Intake Total 1000 / 1000 268 / 268 Output Total 570 / 570 Balance 430 / 430 268 / 268 Intake: Oral 1000 / 1000 268 / 268 Output: Hemodialysis UF 570 / 570 Other: Meal 4 saltine crackers Percent of Meal Consumed 100% Feeding Ability Independent Stool Size Moderate Stool Color Brown Stool Consistency Formed # Voids 1 # Bowel Movements 1 Weight 170 lb General appearance: no acute distress - Head Head exam: Present: normal inspection - Respiratory Respiratory exam: Present: normal respiratory exam - Cardiovascular Cardiovascular exam: Present: normal rate and rhythm - GI/Abdominal GI/Abdominal exam: Present: normal bowel sounds, soft - Extremities Exam Extremities exam: Present: normal inspection Medical - DS: Data Procedures and tests throughout hospitalization: HEMODIALYSIS: 11/03, 11/04, 11/07, 11/18 EGD 11/10/2017: POSTPROCEDURE EGD DIAGNOSES: 1. Upper gastrointestinal bleed secondary to duodenal ulcer. 2. Duodenal erosions in addition to duodenal ulcer. 3. Gastritis. 4. EGitis with possible reflux. THERAPEUTIC THORACENTESIS R AND L: 11/15: 2000 ML 11/16: 1900 ML RENAL BIOPSY 11/16: PATH PENDING PLACEMENT OF HEMODIALYSIS CATHETER: 11/18/17 Labs on day of discharge: Labs from last 24 hours 11/19/17 11/19/17 11/18/17 05:01 05:00 10:22 WBC 5.5 RBC 2.95 L Hgb 8.3 L Hct 25.2 L MCV 85.3 MCH 28.2 MCHC 33.1 RDW 17.3 H Plt Count 215 MPV 7.3 L Gran % 65.2 Lymph % (Auto) 18.0 Candler % (Auto) 7.7 Eos % (Auto) 8.1 H Baso % (Auto) 1.0 Gran # 3.6 Lymph # (Auto) 1.0 L Candler # (Auto) 0.4 Eos # (Auto) 0.4 Baso # (Auto) 0.1 Sodium 136 Potassium 3.6 Chloride 98 Carbon Dioxide 28 Anion Gap 10.0 BUN 38 H Creatinine 3.0 H GFR Calculation 18 Glucose 64 L Uric Acid 4.8 Calcium 7.8 L Phosphorus 3.4 Magnesium 1.9 Total Bilirubin 0.4 Direct Bilirubin < 0.2 GGT 33 AST 27 ALT 17 Alkaline Phosphatase 119 H Lactate Dehydrogenase 236 Total Protein 5.5 L Albumin 2.4 L Globulin 3.1 Albumin/Globulin Ratio 0.8 L Triglycerides 81 Hep Bs Antigen Negative Hep Bs Antibody Negative Hepatitis C Antibody Non reactive Medical - DS: A/P - Patient/Caregiver Discharge Instructions Activity: increase activity as tolerated Diet: Renal/Consistent Carbs Prescriptions: Aspirin 81 mg PO DAILY #90 tab.chew Dextrose [Insta-Glucose] 15 gm PO PRN PRN #30 oral.susp PRN Reason: Hypoglycemia Furosemide [Lasix] 40 mg PO DAILY #90 tablet Ondansetron HCl [Zofran ODT] 4 mg SL Q6HP PRN #30 tablet PRN Reason: Nausea Pantoprazole [Protonix] 40 mg PO QAMAC #90 tablet sitaGLIPtin PHOSPHATE [Januvia] 25 mg PO DAILY #90 tablet - Follow up Plan Follow up with: Katie Ames MD [Physician] - Roni Davies MD [Physician] - (repeat EGD 3 months check status healing) Disposition: Home Health Service Prognosis: Fair Rehab Potential: Fair Overall status at discharge: patient is progressing back to baseline Medical - DS: Qual - VTE Deep Vein Thrombosis/Pulmonary Embolism Present on Admission: No
--- NOTE | 2017-11-19 22:41 | Nephrology Progress Note ---
Subjective Patient information: Note initiated : 11/19/17 at 10:37 pm Service Date, if different from initiated Date: [] Patient: Brandon Austin 82 y/o M admitted on 11/02/17 for Pneumonia/Acute Renal Failure. Chief Complaint: [] Principal diagnosis: Acute renal failure, fluid overload Interval history: no new issues HD done yday , tolerated it with no problems LE edema still + denies SOB, CP no other issues verbal report on biopsy shows arterislcerosis/ischemic changes and mild ATN Pertinent ROS: as above Objective - Vital Signs Vital signs: Vital Signs Temp Pulse Resp BP BP Pulse Ox 11/19/17 15:33 98.6 F 80 16 102/60 93 11/19/17 12:00 98.6 F 16 101/62 92 11/19/17 07:04 98.9 F 16 96/60 93 11/19/17 04:00 97.6 F 75 18 101/56 93 11/19/17 00:26 97.5 F 67 18 101/57 93 Intake and Output 11/19/17 11/19/17 11/20/17 13:59 21:59 05:59 Intake Total 360 / 360 Balance 360 / 360 Intake: Oral 360 / 360 Other: Meal Lunch Percent of Meal Consumed 100% Stool Size Large Stool Color Brown Black Stool Consistency Soft Formed # Bowel Movements 1 Intake & Output: Intake & Output 11/19/17 11/19/17 11/20/17 13:59 21:59 05:59 Intake Total 360 / 360 Balance 360 / 360 Intake: Oral 360 / 360 Other: Meal Lunch Percent of Meal Consumed 100% Stool Size Large Stool Color Brown Black Stool Consistency Soft Formed # Bowel Movements 1 - General Appearance General appearance: appears started age, frail EENT: mucous membranes moist Neck: no JVD Respiratory: clear Cardiology: no rub, edema, normal S1, normal S2 Gastrointestinal: no tenderness, no guarding Integumentary: warm and dry Neurologic: alert and oriented x3 Musculoskeletal: no erythema, no clubbing Psychiatric: mood/affect appropriate - Lab 11/19/17 05:00 11/19/17 05:01 Most recent lab results Calcium 7.8 mg/dl (8.6-10.4) L 11/19/17 05:01 Phosphorus 3.4 mg/dL (2.7-4.5) 11/19/17 05:01 Magnesium 1.9 mg/dL (1.6-2.5) 11/19/17 05:01 Assessment and Plan (1) Acute renal failure Patient has ZANDER biopsy shows hypertensive nephrosclerosis, some ischemic changes and some ATN, no GN/IF negative for monoclonal issues renal US shows medical renal disease, renal doppler is negative baseline s.creat 1.3 (07/08) labs better today, HD done Discharge on 40mg po lasix HD on tuesday, labs prior to HD Requested family to ensure adeqate po intake, monitor urine output, call if any concerns anemia: etiology multifactorial, Hb stable, post renal biopsy,Tsat is low at 9, ferritin is at 66, will ict IV iron as outpt low albumin: will initiate nepro and continue with oral protein supplement on dialysis Will follow along Thank you for giving me an opportunity to participate in Mr Austin's medical care, appreciate it Status: Acute Priority: High Qualifiers: Acute renal failure type: unspecified Qualified Code(s): N17.9 - Acute kidney failure, unspecified
== END 2017-11-19 15:10 | disposition home health service (06) | DRG 673 ==
LOC: ICU 14:42 → MEDSUR 11-09 09:58 → ICU 11-10 15:08 → MEDSUR 11-15 13:20
PROVIDERS: ADMIT Internal Medicine; ATTEND Specialist